=== PATIENT | female | born 1930 | race Caucasian/White ===

== ENCOUNTER → 2016-10-23 | Outpatient (CLI) | payer MEDICARE, OTHER ==
[~2016-10-23] MED LIST: AKWASOL OU; ALDA25TA PO; AMLO25TA PO; ASPI81TA85 PO; PRED1SUS OS; PREDOPD OS; REST0.05 OU; SYNT88TA2 PO; VIGA0.02 OU
--- NOTE | 2016-10-23 16:04 | REP ---
RENAL ULTRASOUND: Real-time sonographic evaluation of the kidneys is performed. The right kidney appears atrophic and echogenic, measuring 8.1 x 2.3 x 2.2 cm. The left kidney is normal in size measuring 12.4 x 5.4 x 5.3 cm. Multiple cysts are seen of the right kidney, largest measuring 2 cm in diameter. There appears to be a 4 cm cyst of the upper pole of the left kidney. There is no hydronephrosis. No definite renal stones are seen. IMPRESSION: Right renal atrophy with echogenic appearance. Multiple bilateral renal cysts. No hydronephrosis.
== END ==
LOC: M WHC 09:03
PROVIDERS: ATTEND Family Medicine
DX: N18.3 Chronic kidney disease, stage 3 (moderate) (principal); Q61.02 Congenital multiple renal cysts

== ENCOUNTER 2016-10-30 10:36 | Inpatient (IN) | payer MEDICARE, OTHER ==
[~2016-10-30] VITALS: Ht 152.4 cm; Wt 73.4 kg
[2016-10-30 12:19] LABS: ABG BASE EXCESS 0.3 (-2.0-2.0); ABG DEVICE NASAL CANN; ABG HCO3 23.6 MEQ/L (22.0-26.0); ABG PARTIAL PRESSURE CO2 34.4 mmHg (35.0-45.0); ABG PARTIAL PRESSURE O2 72.7 mmHg (75.0-100.0); ABG STANDARD HCO3 24.7 MEQ/L (22.0-26.0); ABG TOTAL CO2 24.7 MEQ/L (23.0-31.0); ABG pH (ARTERIAL) 7.455 UNITS (7.350-7.450)
[2016-10-30 12:25] LABS: MEAN CORPUSCULAR HEMOGLOBIN 32.7 pg (27.0-33.0); MEAN CORPUSCULAR HGB CONC 33.6 g/dl (32.0-36.5); MEAN CORPUSCULAR VOLUME 97.1 fl (80.0-96.0); RED CELL DISTRIBUTION WIDTH 14.3 % (11.5-14.5); WHITE BLOOD COUNT 11.2 K/mm3 (4.0-10.0)
[2016-10-30 12:56] LABS: CALCIUM LEVEL 10.2 MG/DL (8.8-10.2); CREATININE FOR GFR 1.27 MG/DL (0.55-1.02); GLOMERULAR FILTRATION RATE 42.4 (>32); POTASSIUM SERUM 4.5 MEQ/L (3.5-5.1)
[2016-10-30] MEDS ORDERED: FUROSEMIDE 20 MG/2 ML VIAL (J1940) As Ordered ONE (13:14)
--- NOTE | 2016-10-30 13:39 | REP ---
Clinical: Shortness of breath. Technique: AP and lateral. Comparison: 12/26/2014. Findings: Diffuse chronic changes are appreciated. Cardiomegaly is suggested along with evidence for CHF and pulmonary vascular congestion with bibasilar opacities and moderate pleural effusions. No pneumothorax. Skeletal structures demonstrate degenerative changes, osteopenia and exaggerated kyphosis. Impression: Chronic changes with suspected superimposed cardiomegaly and CHF including bibasilar opacities and pleural effusions. Signed by Alvarado Linares MD 10/30/2016 01:32 P
--- NOTE | 2016-10-30 14:06 | REP ---
Clinical: Pain and swelling . Technique: Dove scale and color Doppler evaluation using linear high frequency transducer. Findings: Ultrasound examination of the right and left lower extremity deep venous structures from the common femoral vein to the popliteal vein demonstrates normal compressibility flow and wave patterns in response to respiration and augmentation. There is no evidence for deep venous thrombosis. Impression: No evidence for deep venous thrombosis. Signed by Alvarado Linares MD 10/30/2016 01:58 P
[2016-10-30] MEDS ORDERED: LABETALOL 100 MG TAB As Ordered ONE (14:43)
[2016-10-30] MEDS ORDERED: LABE10TAB PO (14:43)
[2016-10-30] MEDS ORDERED: PERF20NE2 INH (14:45)
[2016-10-30] MEDS ORDERED: IRBE75TA5 PO (14:45)
[2016-10-30] MEDS ORDERED: NORT25CA2 PO (14:45)
[2016-10-30] MEDS ORDERED: FISH1000 PO (14:45)
[2016-10-30] MEDS ORDERED: VITMTA PO (14:45)
[2016-10-30] MEDS ORDERED: DIGOXIN INJ 0.5 MG/2 ML AMP (J1160) IV ONE (15:00)
[2016-10-30] MEDS ORDERED: DIGOXIN INJ 0.5 MG/2 ML AMP (J1160) As Ordered ONE (15:36)
--- NOTE | 2016-10-30 17:44 | EDDOCDS ---
Physician Documentation [facility] Name: Allyn Linda Age: 86 yrs Sex: Female : 1930 Arrival Date: 10/30/2016 Time: 10:36 Bed 7 Private MD: Ten Cisse Disposition: 10/30/16 15:17 Hospitalization ordered by Lulú Patel for Inpatient Admission. Preliminary diagnosis is Acute combined systolic (congestive) and diastolic (congestive) heart failure. - Bed requested for PCU. - Status is Inpatient Admission. ck1 - Condition is Stable. - Problem is new. - Symptoms are unchanged. Historical: - Allergies: PENICILLINS; Motrin; - Home Meds: 1. aspirin 81 mg Oral tab 1 tab once daily 2. spironolacton-hydrochlorothiaz 25-25 mg Oral tab 1 tab 2 times per day 3. levothyroxine 88 mcg Oral cap 1 cap once daily 4. Restasis 0.05 % ophthalmic dpet 1 drop 2 times per day 5. Labetalol 50 mg Oral 0.5 tab daily 6. nortriptyline 25 mg Oral cap twice a day 7. Avapro 75 mg Oral tab once daily 8. performist twice a day 9. Fish Oil 1,000 mg Oral cap daily 10. Centrum Silver oral tab daily - PMHx: Hypertension; Hyperthyroidism; ME; TIA; neuropathy; pulmonary fibrosis; - PSHx: Corneal Transplant; Hernia repair; Knee Replacement; Fem Pop; - Social history: Smoking status: Patient states was never smoker of tobacco. No barriers to communication noted, The patient speaks fluent [place], Speaks appropriately for age. - Family history: Not pertinent. - : The pt / caregiver states he / she is not on anticoagulants. Home medication list is obtained from the patient, family members. - Exposure Risk Screening:: None identified. Vital Signs: 10/30 10:48 BP 115 / 87; Pulse 136; Resp 24; Temp 96.6(O); Pulse Ox 96% on R/A; Weight 74.84 kg / ck1 164.99 lbs (R); Height 5 ft. 0 in. (152.40 cm) (R); Pain 0/10; 11:13 BP 117 / 80 (auto/); ck1 11:13 Pulse 122 MON; Pulse Ox 97% ; ck1 11:31 BP 114 / 77 (auto/); ck1 11:31 Pulse 124 MON; Pulse Ox 96% ; ck1 11:43 BP 115 / 85 (auto/); ck1 11:43 Pulse 126 MON; Pulse Ox 97% ; ck1 11:58 BP 111 / 79 (auto/); ck1 11:58 Pulse 120 MON; Pulse Ox 97% ; ck1 12:13 BP 112 / 90 (auto/); ck1 12:13 Pulse 122 MON; Pulse Ox 95% ; ck1 12:28 BP 140 / 91 (auto/); ck1 12:28 Pulse 126 MON; Pulse Ox 97% ; ck1 13:02 BP 113 / 81 (auto/); ck1 13:06 Pulse 122 MON; Pulse Ox 92% ; ck1 14:30 BP 116 / 78 (auto/); ck1 14:30 Pulse 120 MON; Pulse Ox 98% ; ck1 14:47 BP 126 / 75 (auto/); ck1 14:47 Pulse 120 MON; Pulse Ox 98% ; ck1 14:59 Pulse 126 MON; Pulse Ox 97% ; ck1 15:00 BP 128 / 83 (auto/); ck1 15:15 BP 117 / 65 (auto/); ck1 15:18 Pulse 126 MON; Pulse Ox 98% ; ck1 16:09 Pulse 108 MON; Pulse Ox 97% ; ck1 16:09 BP 99 / 70 (auto/); ck1 16:10 Pulse 110 MON; Pulse Ox 96% ; ck1 16:15 Resp 20; Temp 95.9(T); ck1 16:53 BP 114 / 79 RA Sitting (auto/reg); jrd 17:03 Pulse 106 MON; Pulse Ox 97% ; ck1 17:04 BP 111 / 83 (auto/); ck1 17:05 BP 111 / 83; Pulse 107; Resp 20; Pulse Ox 98% ; jlf 17:40 BP 117 / 70 LA Sitting (auto/reg); Pulse 98; Resp 18; Temp 98.6; Pulse Ox 100% on R/A; jrd Pain 0/10; 10:48 Body Mass Index 32.22 (74.84 kg, 152.40 cm) ck1 MDM: 11:55 Call Respiratory ordered. jo4 11:55 Hotel Operations Manager ordered. jo4 11:56 BNP Ordered. EDMS 11:56 -Arterial Blood Gas Ordered. EDMS 11:56 Cardiac Marker Panel Ordered. EDMS 11:56 Chest, 2 View (pa\E\lat) Ordered. EDMS 11:56 ECG WITH READING ER PHYS+CARDIAG ordered. EDMS 11:57 Call Respiratory complete. ck1 12:01 D-Dimer Quant Ordered. EDMS 12:01 CBC Ordered. EDMS 12:03 BASIC METABOLIC PROFILE Ordered. EDMS 13:04 BASIC METABOLIC PROFILE Reviewed. jo4 13:05 CBC Reviewed. jo4 13:06 Cardiac Marker Panel Reviewed. jo4 13:07 D-Dimer Quant Reviewed. jo4 13:10 BNP Reviewed. jo4 13:12 Furosemide 20 mg IVP once ordered. jo4 13:14 Duplex, Ext Lower, Bilateral Ordered. EDMS 13:23 [facility] Payment Agreement was scanned into [employer] and attached to record. pm4 13:23 Financial registration complete. pm4 13:56 -Arterial Blood Gas Reviewed. sd1 14:17 Duplex, Ext Lower, Bilateral Reviewed. jo4 14:23 Chest, 2 View (pa\E\lat) Reviewed. jo4 14:31 2 GRAM SODIUM+DIET ordered. EDMS 14:37 Labetalol 25 mg PO once ordered. sd1 15:03 PHYSICAL THERAPY EVAL & TREAT ordered. EDMS 15:03 Admission / Observation Status ordered. EDMS 15:04 CARDIAC MARKER PANEL Ordered. EDMS 15:06 ECHOCARD,DOPPLER/COLOR FLOW ordered. EDMS 15:06 ELECTROCARDIOGRAM ADULT ordered. EDMS 15:07 BASIC METABOLIC PROFILE Ordered. EDMS 15:29 THYROID STIMULATING HORMONE Reviewed. jo4 15:30 Cardiac Marker Panel Reviewed. jo4 15:30 BASIC METABOLIC PROFILE Reviewed. jo4 15:36 Written Provider Order was scanned into [employer] and attached to record. lbd 15:42 Digoxin 0.25 mg IVP once ordered. ck1 Administered Medications: 13:22 Drug: Furosemide 20 mg [furosemide 10 mg/mL injection solution (2 mL)] Route: IVP; ck1 Site: right antecubital; 14:49 Drug: Labetalol 25 mg Route: PO; ck1 15:42 Drug: Digoxin 0.25 mg [digoxin 250 mcg/mL injection solution (1 mL)] Route: IVP; Site: ck1 right antecubital; Signatures: Dispatcher [employer] EDTN Sona Weiss MD MD sd1 Simona Mahmood, Manager Continuous Improvement Unit lbd Lela Connors,RN RN ck1 Itzel Murray DO DO jo4 Jerel Singh, Reg Reg pm4 The chart was reviewed and I authenticate all verbal orders and agree with the evaluation and treatment provided.Corrections: (The following items were deleted from the chart) 12:02 12:01 BASIC METABOLIC PROFILE+LAB ordered. EDMS EDMS 12:03 12:01 BASIC METABOLIC PROFILE+LAB ordered. EDMS EDMS 14:38 14:34 THYROID STIMULATING HORMONE+LAB ordered. EDMS EDMS 16:50 16:30 THYROID STIMULATING HORMONE ordered. EDMS EDMS Attachments: 13:23 [facility] [place] pm4 15:36 Written Provider Order lbd MTDD
--- NOTE | 2016-10-30 17:44 | EDDOCDS ---
Nurse's Notes [facility] Name: Allyn Linda Age: 86 yrs Sex: Female : 1930 Arrival Date: 10/30/2016 Time: 10:36 Bed 7 Private MD: Ten Cisse Diagnosis: Acute combined systolic (congestive) and diastolic (congestive) heart failure Presentation: 10/30 10:38 Presenting complaint: EMS states: "slid" off the edge of bed at 0800, weight on left ck1 knee. Patient denies pain at this time. Hypertensive on scene. Adult Sepsis Screening: The patient does not have new or worsening altered mentation. Patient has a respiratory rate of greater than or equal to 22 (1 point). Systolic blood pressure is greater than 100. Patient has a qSOFA score of 1- Negative Sepsis Screen. Suicide/Homicide risk assessment- the patient denies having any suicidal and/or homicidal ideations and does not present with any other emotional, behavioral or mental health complaints. Status: Patient is not a retail service representative or dependent. Transition of care: patient was not received from another setting of care. 10:38 Method Of Arrival: Ambulance ck1 10:38 Acuity: MENDY Level 3 ck1 Triage Assessment: 10:57 General: Appears in no apparent distress, comfortable, Behavior is appropriate for age, ck1 cooperative. Pain: Denies pain. Neurological: Level of Consciousness is awake, alert, obeys commands, Oriented to person, place, time. Cardiovascular: Rhythm is sinus tachycardia Chest pain is denied. Respiratory: Respiratory effort is unlabored, Respiratory pattern is regular, symmetrical. GI: No deficits noted. Derm: Skin is dusky, on fingertips. Musculoskeletal: Range of motion intact in all extremities. Historical: - Allergies: PENICILLINS; Motrin; - Home Meds: 1. aspirin 81 mg Oral tab 1 tab once daily 2. spironolacton-hydrochlorothiaz 25-25 mg Oral tab 1 tab 2 times per day 3. levothyroxine 88 mcg Oral cap 1 cap once daily 4. Restasis 0.05 % ophthalmic dpet 1 drop 2 times per day 5. Labetalol 50 mg Oral 0.5 tab daily 6. nortriptyline 25 mg Oral cap twice a day 7. Avapro 75 mg Oral tab once daily 8. performist twice a day 9. Fish Oil 1,000 mg Oral cap daily 10. Centrum Silver oral tab daily - PMHx: Hypertension; Hyperthyroidism; MN; TIA; neuropathy; pulmonary fibrosis; - PSHx: Corneal Transplant; Hernia repair; Knee Replacement; Fem Pop; - Social history: Smoking status: Patient states was never smoker of tobacco. No barriers to communication noted, The patient speaks fluent Wallisian, Speaks appropriately for age. - Family history: Not pertinent. - : The pt / caregiver states he / she is not on anticoagulants. Home medication list is obtained from the patient, family members. - Exposure Risk Screening:: None identified. Screenin:59 Screening information is obtained from the patient, family members. Fall risk: At risk ck1 due to age, prior history of falls, The following interventions are performed due to a positive Fall Risk Screen: Fall Risk is added to Special Handling on the patient Summary Screen. A Fall Risk Bracelet was applied to the patient. Side Rails are placed in the up position. A Call Vazquez is given with instruction to call for help when getting out of bed. Fall Alert bracelet is placed on the patient. Assistance ADL's: Requires assistance with meal preparation, this assistance is provided by family members, ambulation, assistance is provided by family members, housework, assistance is provided by family members. Abuse/DV Screen: The patient / caregiver reports he/she is: not in a situation that causes fear, pain or injury. Nutritional screening: No deficits noted. Advance Directives: There is an active DNR order and the pt has a copy here at this time. home support is adequate. Assessment: 11:00 General: see triage note. ck1 12:00 General: Appears in no apparent distress, comfortable, Behavior is appropriate for age, ck1 cooperative, pleasant. Pain: Denies pain. Neurological: Level of Consciousness is awake, alert, obeys commands, Oriented to person, place, time. Cardiovascular: Rhythm is sinus tachycardia. Respiratory: Respiratory effort is unlabored, Respiratory pattern is regular, symmetrical. GI: No deficits noted. Derm: Skin is dusky, on bilateral hands and feet. Musculoskeletal: Range of motion intact in all extremities. 13:08 Reassessment: Patient appears in no apparent distress at this time. Patient denies pain ck1 at this time. 14:08 Reassessment: Patient appears in no apparent distress at this time. Patient denies pain ck1 at this time. 15:10 General: Appears in no apparent distress, comfortable, Behavior is appropriate for age, ck1 cooperative. Pain: Denies pain. Neurological: Level of Consciousness is awake, alert, obeys commands, Oriented to person, place, time. Cardiovascular: Rhythm is sinus tachycardia. Respiratory: Respiratory effort is even, unlabored, Respiratory pattern is regular, symmetrical. GI: No deficits noted. Musculoskeletal: Range of motion intact in all extremities. 15:43 General: Patient informed of Dr no for day catheter. Patient refusing day ck1 catheter at this time. Patient and family informed on need for strict intake and output. Patient and family verbalized understanding. Dr. Patel aware. 16:15 Adult Sepsis Screening: The patient does not have new or worsening altered mentation. ck1 Patient's respiratory rate is less than 22. Systolic blood pressure is less than or equal to 100 (1 point). Patient has a qSOFA score of 1- Negative Sepsis Screen. 16:50 General: Patient sitting up on stretcher visiting with family members at bedside. No ck1 acute distress noted at this time, call light in reach. Will continue to monitor patient. 17:39 General: Appears in no apparent distress, comfortable, Behavior is appropriate for age, ck1 cooperative. Pain: Denies pain. Neurological: Level of Consciousness is awake, alert, obeys commands, Oriented to person, place, time. Cardiovascular: Rhythm is sinus tachycardia Chest pain is denied. Respiratory: Respiratory effort is even, unlabored, Respiratory pattern is regular, symmetrical. GI: No deficits noted. Derm: Skin is dusky, on bilateral hands and feet. Musculoskeletal: Range of motion intact in all extremities. Vital Signs: 10:48 BP 115 / 87; Pulse 136; Resp 24; Temp 96.6(O); Pulse Ox 96% on R/A; Weight 74.84 kg ck1 (R); Height 5 ft. 0 in. (152.40 cm) (R); Pain 0/10; 11:13 BP 117 / 80 (auto/); ck1 11:13 Pulse 122 MON; Pulse Ox 97% ; ck1 11:31 BP 114 / 77 (auto/); ck1 11:31 Pulse 124 MON; Pulse Ox 96% ; ck1 11:43 BP 115 / 85 (auto/); ck1 11:43 Pulse 126 MON; Pulse Ox 97% ; ck1 11:58 BP 111 / 79 (auto/); ck1 11:58 Pulse 120 MON; Pulse Ox 97% ; ck1 12:13 BP 112 / 90 (auto/); ck1 12:13 Pulse 122 MON; Pulse Ox 95% ; ck1 12:28 BP 140 / 91 (auto/); ck1 12:28 Pulse 126 MON; Pulse Ox 97% ; ck1 13:02 BP 113 / 81 (auto/); ck1 13:06 Pulse 122 MON; Pulse Ox 92% ; ck1 14:30 BP 116 / 78 (auto/); ck1 14:30 Pulse 120 MON; Pulse Ox 98% ; ck1 14:47 BP 126 / 75 (auto/); ck1 14:47 Pulse 120 MON; Pulse Ox 98% ; ck1 14:59 Pulse 126 MON; Pulse Ox 97% ; ck1 15:00 BP 128 / 83 (auto/); ck1 15:15 BP 117 / 65 (auto/); ck1 15:18 Pulse 126 MON; Pulse Ox 98% ; ck1 16:09 Pulse 108 MON; Pulse Ox 97% ; ck1 16:09 BP 99 / 70 (auto/); ck1 16:10 Pulse 110 MON; Pulse Ox 96% ; ck1 16:15 Resp 20; Temp 95.9(T); ck1 16:53 BP 114 / 79 RA Sitting (auto/reg); jrd 17:03 Pulse 106 MON; Pulse Ox 97% ; ck1 17:04 BP 111 / 83 (auto/); ck1 17:05 BP 111 / 83; Pulse 107; Resp 20; Pulse Ox 98% ; jlf 17:40 BP 117 / 70 LA Sitting (auto/reg); Pulse 98; Resp 18; Temp 98.6; Pulse Ox 100% on R/A; jrd Pain 0/10; 10:48 Body Mass Index 32.22 (74.84 kg, 152.40 cm) ck1 Vitals: 10:48 Log In Time N/A - ambulance arrival. ck1 ED Course: 10:37 Patient visited by Eusebio Longoria PCA. jrd 10:37 Lela Connors,RN is Primary Nurse. jrd 10:37 Patient moved to Waiting jrd 10:37 Patient moved to 7 jrd 10:38 Ten Cisse is Private Physician. jrd 10:41 Triage Initiated ck1 10:47 Itzel Murray DO is PHCP. jo4 10:47 Sona Weiss MD is Attending Physician. jo4 11:00 The patient / caregiver is instructed regarding the plan of care and ED course. ck1 11:08 Patient visited by Lela Connors RN. ck1 11:33 Patient visited by Conchita Resendiz PCA. jlf 11:43 Patient visited by Itzel Murray DO. jo4 12:08 Patient visited by Lela Connors RN. ck1 12:08 BASIC METABOLIC PROFILE Sent. ck1 12:08 CBC Sent. ck1 12:08 Cardiac Marker Panel Sent. ck1 12:08 BNP Sent. ck1 12:08 Inserted saline lock: 20 gauge in right antecubital area and blood collected. The ck1 patient tolerated the procedure well. 12:12 Patient visited by Conchita Resendiz PCA. jlf 12:12 EKG done. (by ED staff). Reviewed by Sona Weiss MD. jlf 12:18 -Arterial Blood Gas Sent. js11 12:18 D-Dimer Quant Sent. ck1 12:35 Patient moved to Radiology we 13:08 Patient visited by Lela Connors RN. ck1 13:08 Patient moved to 7 ck1 13:22 Patient visited by Lela Connors RN. ck1 13:23 [facility] Payment Agreement was scanned into Link Trigger and attached to record. pm4 13:28 Patient moved to Ultrasound hgl 13:58 Patient moved to 7 hgl 14:04 Patient visited by Conchita Resendiz PCA. jlf 14:14 Chest, 2 View (pa\\E\\lat) Returned. EDMS 14:14 Duplex, Ext Lower, Bilateral Returned. EDMS 14:29 Patient visited by Lela Connors,MARY. ck1 14:49 Patient visited by Lela Connors,MARY. ck1 14:52 Patient visited by Belgica Mckeon PCA. rs6 14:52 Diet: Patient given regular meal. Tolerated well. rs6 15:17 Amanda, Lulú is Hospitalizing Provider. jo4 15:20 Patient visited by Belgica Mckeon, REID. rs6 15:20 Assisted to bathroom. PT ambulated to bathroom with walker with minimal assistance. rs6 15:36 Written Provider Order was scanned into Link Trigger and attached to record. lbd 16:57 No procedures done that require assistance. ck1 17:06 Patient visited by Conchita Resendiz, REID. jlf 17:41 Patient visited by Eusebio Longoria, REID. jrd Administered Medications: 13:22 Drug: Furosemide 20 mg [furosemide 10 mg/mL injection solution (2 mL)] Route: IVP; ck1 Site: right antecubital; 14:49 Drug: Labetalol 25 mg Route: PO; ck1 15:42 Drug: Digoxin 0.25 mg [digoxin 250 mcg/mL injection solution (1 mL)] Route: IVP; Site: ck1 right antecubital; RT: 12:18 ABG's drawn from right radial artery allens test done and positive pressure held for 5 js11 minutes no bleeding noted specimen sent pt. tolerated well. Order Results: Lab Order: BNP; SPEC'M 10/30/16 12:06 Test: BRAIN NATRIURETIC PEPTIDE; Value: 884; Range: <100; Abnormal: Above high normal; Units: PG/ML; Status: F Lab Order: -Arterial Blood Gas; SPEC'M 10/30/16 12:11 Test: ABG pH (ARTERIAL); Value: 7.455; Range: 7.350-7.450; Abnormal: Above high normal; Units: UNITS; Status: F Test: ABG PARTIAL PRESSURE CO2; Value: 34.4; Range: 35.0-45.0; Abnormal: Below low normal; Units: mmHg; Status: F Test: ABG PARTIAL PRESSURE O2; Value: 72.7; Range: 75.0-100.0; Abnormal: Below low normal; Units: mmHg; Status: F Test: ABG TOTAL CO2; Value: 24.7; Range: 23.0-31.0; Units: MEQ/L; Status: F Test: ABG HCO3; Value: 23.6; Range: 22.0-26.0; Units: MEQ/L; Status: F Test: ABG BASE EXCESS; Value: 0.3; Range: -2.0-2.0; Status: F Test: ABG STANDARD HCO3; Value: 24.7; Range: 22.0-26.0; Units: MEQ/L; Status: F Test: ABG O2 SATURATION; Value: 94.6; Range: 95.0-99.0; Abnormal: Below low normal; Units: %; Status: F Test: ABG DEVICE; Value: NASAL GIANA; Status: F Lab Order: Cardiac Marker Panel; SPEC'10/30/16 12:07 Test: CPK CREATINE PHOSPHOKINASE; Value: 237; Range: 26-192; Abnormal: Above high normal; Units: U/L; Status: F Test: CK-MB VALUE MASS; Value: 5.3; Range: 0.0-3.6; Abnormal: Above high normal; Units: NG/ML; Status: F Test: MB/CK RELATIVE INDEX; Value: 2.23; Range: < OR =4; Status: F Test: TROPONIN I; Value: 0.11; Range: < 0.10; Abnormal: Above high normal; Units: NG/ML; Status: F Test Note: ; DIAGNOSIS CRITERIA MMB ng/ml Relative Index (RI) NON-AMI < or = 5 N/A DOVE ZONE > 5 < or = 4 AMI > 5 > 4 Lab Order: D-Dimer Quant; [facility]10/30/[facility] 12:17 Test: D-DIMER QUANT; Value: 1954.1; Range: <500; Abnormal: Above high normal; Units: ng/ml; Status: F Lab Order: CBC; [facility]10/[facility] 12:07 Test: WHITE BLOOD COUNT; Value: 11.2; Range: 4.0-10.0; Abnormal: Above high normal; Units: K/mm3; Status: F Test: RED BLOOD COUNT; Value: 4.01; Range: 4.00-5.40; Units: M/mm3; Status: F Test: HEMOGLOBIN; Value: 13.1; Range: 12.0-16.0; Units: g/dl; Status: F Test: HEMATOCRIT; Value: 39.0; Range: 36.0-47.0; Units: %; Status: F Test: MEAN CORPUSCULAR VOLUME; Value: 97.1; Range: 80.0-96.0; Abnormal: Above high normal; Units: fl; Status: F Test: MEAN CORPUSCULAR HEMOGLOBIN; Value: 32.7; Range: 27.0-33.0; Units: pg; Status: F Test: MEAN CORPUSCULAR HGB CONC; Value: 33.6; Range: 32.0-36.5; Units: g/dl; Status: F Test: RED CELL DISTRIBUTION WIDTH; Value: 14.3; Range: 11.5-14.5; Units: %; Status: F Test: PLATELET COUNT, AUTOMATED; Value: 217; Range: 150-450; Units: k/mm3; Status: F Lab Order: BASIC METABOLIC PROFILE; [facility] 10/30/16 12:07 Test: GLUCOSE, FASTING; Value: 128; Range: 83-110; Abnormal: Above high normal; Units: MG/DL; Status: F Test: BLOOD UREA NITROGEN; Value: 38; Range: 7-18; Abnormal: Above high normal; Units: MG/DL; Status: F Test: CREATININE FOR GFR; Value: 1.27; Range: 0.55-1.02; Abnormal: Above high normal; Units: MG/DL; Status: F Test: GLOMERULAR FILTRATION RATE; Value: 42.4; Range: >32; Status: F Test: SODIUM LEVEL; Value: 139; Range: 136-145; Units: MEQ/L; Status: F Test: POTASSIUM SERUM; Value: 4.5; Range: 3.5-5.1; Units: MEQ/L; Status: F Test: CHLORIDE LEVEL; Value: 102; Range: 98-107; Units: MEQ/L; Status: F Test: CARBON DIOXIDE LEVEL; Value: 27; Range: 21-32; Units: MEQ/L; Status: F Test: ANION GAP; Value: 10; Range: 8-16; Units: MEQ/L; Status: F Test: CALCIUM LEVEL; Value: 10.2; Range: 8.8-10.2; Units: MG/DL; Status: F Test Note: ; Units are mL/min/1.73 m2 Chronic Kidney Disease Staging per NKF: Stage I & II GFR >=60 Normal to Mildly Decreased Stage III GFR 30-59 Moderately Decreased Stage IV GFR 15-29 Severely Decreased Stage V GFR <15 Very Little GFR Left ESRD GFR <15 on ICE GUARD TESTER Lab Order: THYROID STIMULATING HORMONE; SPEC'M 10/30/16 12:07 Test: THYROID STIMULATING HORMONE; Value: 1.410; Range: 0.358-3.740; Units: uIU/ML; Status: F Radiology Order: Chest, 2 View (pa\\E\\lat) Test: Chest, 2 View (pa\\E\\lat) REASON FOR EXAMINATION: Shortness of Breath; Clinical: Shortness of breath.; ; Technique: AP and lateral.; ; Comparison: 12/26/2014.; ; Findings:; Diffuse chronic changes are appreciated. Cardiomegaly is suggested along with; evidence for CHF and pulmonary vascular congestion with bibasilar opacities and; moderate pleural effusions. No pneumothorax. Skeletal structures demonstrate; degenerative changes, osteopenia and exaggerated kyphosis.; ; Impression:; Chronic changes with suspected superimposed cardiomegaly and CHF including; bibasilar opacities and pleural effusions.; ; ; Signed by; Alvarado Linares MD 10/30/2016 01:32 P; Radiology Order: Duplex, Ext Lower, Bilateral Test: Duplex, Ext Lower, Bilateral REASON FOR EXAMINATION: Elevated D-dimer; Clinical: Pain and swelling .; ; Technique: Dove scale and color Doppler evaluation using linear high frequency; transducer.; ; Findings:; Ultrasound examination of the right and left lower extremity deep venous; structures from the common femoral vein to the popliteal vein demonstrates normal; compressibility flow and wave patterns in response to respiration and; augmentation. There is no evidence for deep venous thrombosis.; ; Impression:; No evidence for deep venous thrombosis.; ; ; Signed by; Alvarado Linares MD 10/30/2016 01:58 P; Outcome: 15:17 Decision to Hospitalize by Provider. jo4 16:56 Discharge Assessment: patient administered narcotics - no. The following High Risk ck1 Discharge criteria are identified: None. Admitted to PCU accompanied by nurse, accompanied by tech, family with patient, via stretcher, with oxygen, on monitor, with chart. Condition: stable. Admission hand-off: Report Faxed Fax receipt verified by MARY Waldrop. Property :Personal belongings accompany Pt. 16:57 No special radiology studies were completed. ck1 17:42 Patient left the ED. ck1 Signatures: Dispatcher [employer] EDMS Mahmood, Simona, Machine Cementer Unit lbd Luis Alberto Henri Lela Ramirez RN RN ck1 Jimbo Walter js11 Ly, Arie hgl Conchita Resendiz, STAFFING DIRECTOR STAFFING DIRECTOR jlf Eusebio Longoria, STAFFING DIRECTOR STAFFING DIRECTOR jrd Belgica Mckeon, STAFFING DIRECTOR STAFFING DIRECTOR rs6 Itzel Murray, DO DO jo4 Jerel Singh, Reg Reg pm4 Corrections: (The following items were deleted from the chart) 10:49 10:38 Adult Sepsis Screening: The patient does not have new or worsening altered ck1 mentation. Patient's respiratory rate is less than 22. Systolic blood pressure is greater than 100. Patient has a qSOFA score of 0- Negative Sepsis Screen. ck1 14:38 14:37 THYROID STIMULATING HORMONE+LAB sent. 1 EDMS MTDD
[2016-10-30 17:55] VITALS: BP 143/89
[2016-10-30] MEDS: OMEPRAZOLE 20 MG CAP PO SCH (18:53)
[2016-10-30] MEDS: METOPROLOL TART 25 MG TABLET PO SCH (18:54)
--- NOTE | 2016-10-30 19:09 | HPE ---
DATE OF ADMISSION: 10/30/2016 PRIMARY CARE PROVIDER: Dr. Nohelia Mann STILL OPERATOR BATCH OR CONTINUOUS: Dr. Berry Dickerson HOSPITALIST ATTENDING: Dr. Juan Fajardo CHIEF COMPLAINT: Shortness of breath. 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 The patient was in her usual state of health until 2 days ago when she experienced worsening trouble breathing. Dry weight is 165 pounds, measured 2 weeks ago when she saw Dr. Mann. She has had increasing lower extremity edema. Usually uses three pillows to sleep. Usually walks with her walker and has been limited due to shortness of breath by about 5 feet. She denies any chest pain, pressure, or tightness, lightheadedness or dizziness, no fever or chills. She has a nonproductive cough. As she was trying to get dressed and get up this morning she slid off the bed, did not have a fall or loss of consciousness. The patient has Life Alert and called for help. In the emergency room, she was found to have atrial fibrillation, which is new onset, ventricular rate of 136. She denies any diaphoresis, nausea, vomiting, epigastric pain, diarrhea, bright red blood per rectum, or any abdominal pain. Chest xray showed pulmonary edema superimposed on chronic fibrosis. Hospitalist service was called for admission for atrial fibrillation new onset with rapid ventricular rate. She was given a dose of labetalol with persistent elevated rate of 120, blood pressure improved to 111 systolic. Per the family, they assist her with her meals, fix her some TV dinners. Patient has good neighbors that check up on her multiple times throughout the day despite living alone. Patient is admitted with atrial fibrillation with rapid ventricular rate (RVR) and congestive heart failure (CHF), acute onset, unknown ejection fraction. Hospitalist service was called. PAST MEDICAL HISTORY: 1. Hypertension. 2. Hypothyroidism. 3. CO. 4. TIA. 5. Neuropathy. 6. Pulmonary fibrosis. 7. Anterior cerebral aneurysm. ALLERGIES: PENICILLIN, MOTRIN, ANGIOTENSIN-CONVERTING ENZYME ([facility]) INHIBITORS. HOME MEDICATIONS: - aspirin 81 daily - spironolactone-hydrochlorothiazide 25-25 twice a day - levothyroxine 88 mcg daily - Restasis 0.05% ophthalmic drops twice a day - labetalol 50 mg half a tablet daily - nortriptyline 25 mg twice a day - Avapro 75 mg daily - Perforomist twice a day - fish oil 1000 mg daily - Centrum Silver one tablet daily PAST SURGICAL HISTORY: 1. Corneal transplant. 2. Hernia repair. 3. Knee replacement. 4. Fem-pop. FAMILY HISTORY: Noncontributory due to age. SOCIAL HISTORY: Lives alone. No tobacco, alcohol, or recreational drug use. DO NOT RESUSCITATE. REVIEW OF SYSTEMS: Per history of present illness (HPI), 12-point system otherwise negative. PHYSICAL EXAMINATION: Blood pressure 115/87, pulse 136, irregular, respiratory rate 24, temperature 96.6, 96% on room air, 74.8 kg, 5 feet 0 inches tall. Generally, patient has mild respiratory distress, able to speak 4-5 word sentences. Positive jugular venous distention (JVD). Pupils round and reactive. Extraocular muscles are intact. Diminished breath sounds, rales bilaterally. Heart: S1, S2, irregularly irregular. Displaced point of maximal impulse. Abdomen: Soft, nontender, nondistended. Positive bowel sounds. Extremities: 1+ pitting edema bilaterally. The patient has erythematous right lower extremity, has abrasions on the right big toe and left knee. Postoperative left knee surgical changes. EKG: Atrial fibrillation, ventricular rate of 131. Chest xray: Pulmonary fibrosis, cannot exclude pulmonary edema, preliminary reading. LABORATORY DATA: White count 11, hemoglobin 13, hematocrit 39, platelet count 217, sodium 139, potassium 4.5, chloride 102, bicarbonate 27, BUN 38, creatinine 1.27, glucose 128, total CK 237, MB fraction 5.3, troponin 0.11, BNP 884, TSH 1.4. Baseline creatinine 1.34 previous lab data 08/23/2016. ASSESSMENT AND PLAN: This is an 86-year-old female who lives alone, DO NOT RESUSCITATE/DO NOT INTUBATE, with history of Raynaud's syndrome, pulmonary fibrosis, sees Dr. Reagan, kyphosis with restrictive lung disease, hypertension , hypothyroidism, neuropathy, anterior cerebral aneurysm, hypertensive urgency, presents to emergency room with 2 day history of worsening shortness of breath, found to have atrial fibrillation with rapid ventricular rate (RVR) and congestive heart failure (CHF) new onset, admitted to hospitalist service, attending physician Dr. Juan Fajardo. Patient will be admitted as an inpatient for two midnights for the following issues: 1. Congestive heart failure (CHF), new onset, unknown ejection fraction. Most likely secondary to atrial fibrillation with rapid ventricular rate (RVR). Patient will be admitted to telemetry. Cycle cardiac markers every 6 hours. Fluid restriction 1.8 liters every 24 hours. Strict intake and output, daily weights. Lasix 20 mg intravenous (IV) every 8 hours to net negative 1 liter daily. Echocardiogram. Chest fasting lipid profile in the morning. Patient has allergy to ANGIOTENSIN-CONVERTING ENZYME ([facility]) INHIBITORS, once euvolemic may start on low dose ARB, statin. If patient has worsening creatinine, may start on nitrates. Monitor for worsening symptoms. Keep saturations above 90%. 2. Atrial fibrillation with rapid ventricular rate (RVR). Patient's blood pressure is currently 100. Will continue with Lopressor 25 mg every 6 hours with holding parameter for systolic pressure less than 100 or pulse less than 60. Continue under telemetry. Repeat 12-lead EKG in the morning. Check a thyroid stimulating hormone (TSH) level. If patient has worsening low blood pressure, may consider cardiology consult. As patient has underlying pulmonary fibrosis and due to history of hypothyroidism and pulmonary fibrosis, amiodarone may not be the best choice. At this time will give the patient one dose of digoxin 0.25 IV and recheck a digoxin level in the morning and monitor overnight on telemetry. 3. Chronic renal failure. At baseline creatinine. Avoid nephrotoxins. Renally dose all medications. Repeat metabolic panel and adjust Lasix accordingly. 4. Abnormal cardiac markers, most likely secondary to cardiac mediated ischemia from atrial fibrillation with rapid ventricular rate (RVR) with congestive heart failure. Will cycle cardiac markers. Does not appear to have acute coronary syndrome at this time. EKG is unremarkable aside from atrial fibrillation with rapid ventricular rate. Will recheck a 12-lead EKG in the morning. Continue on telemetry. 5. Hypothyroidism. Continue on levothyroxine. Check thyroid stimulating hormone (TSH). 6. History of transient ischemic attack (TIA) with cerebral aneurysm. We have held off on anticoagulation. Today family is to decide whether the patient should be on a stronger anticoagulant than aspirin due to risk of hemorrhagic stroke in light of patient's history of hypertensive urgencies. 7. Pulmonary fibrosis. Continue on Perforomist. 8. Restrictive lung disease with kyphosis. Outpatient followup. Oxygen if needed. Patient will be assigned to Dr. Juan Fajardo in the morning. HAYDEN
[2016-10-30] MEDS: FORMOTEROL FUMARATE 20 MCG/2 ML INHALATION SOLUTION (PERFOROMIST) INH SCH (19:33)
[2016-10-30 20:00] VITALS: BP 104/58
[2016-10-30] MEDS: IRBESARTAN 75MG TABLET PO SCH (21:00)
[2016-10-30] MEDS ORDERED: APIXABAN 5 MG TAB (ELIQUIS) PO SCH (21:00)
[2016-10-30] MEDS: NORTRIPTYLINE 25 MG CAP PO SCH (21:20)
[2016-10-30 23:04] LABS: CALCIUM LEVEL 9.1 MG/DL (8.8-10.2); CREATININE FOR GFR 1.46 MG/DL (0.55-1.02); GLOMERULAR FILTRATION RATE 36.1 (>32); POTASSIUM SERUM 4.1 MEQ/L (3.5-5.1)
[2016-10-31] VITALS: BP 100/66
[2016-10-31] MEDS ORDERED: FUROSEMIDE 20 MG/2 ML VIAL (J1940) IV SCH
[2016-10-31 04:00] VITALS: BP 132/101
[2016-10-31] MEDS: LEVOTHYROXINE 0.088 MG TAB (88 MCG) PO SCH (04:31)
[2016-10-31] MEDS: METOPROLOL TART 25 MG TABLET PO SCH ×4 (04:31→17:44)
[2016-10-31] MEDS: FUROSEMIDE 100 MG/10 ML VIAL (J1940) IV SCH ×3 (06:00→17:47)
[2016-10-31 06:03] LABS: MEAN CORPUSCULAR HEMOGLOBIN 33.4 pg (27.0-33.0); MEAN CORPUSCULAR VOLUME 98.1 fl (80.0-96.0); RED CELL DISTRIBUTION WIDTH 13.5 % (11.5-14.5); WHITE BLOOD COUNT 8.2 K/mm3 (4.0-10.0)
[2016-10-31 06:18] LABS: CALCIUM LEVEL 8.7 MG/DL (8.8-10.2); CREATININE FOR GFR 1.45 MG/DL (0.55-1.02); GLOMERULAR FILTRATION RATE 36.4 (>32); POTASSIUM SERUM 3.9 MEQ/L (3.5-5.1)
[2016-10-31 06:28] LABS: DIGOXIN LEVEL 0.7 NG/ML (0.5-2.0)
[2016-10-31 07:30] VITALS: BP 108/76
[2016-10-31] MEDS: FORMOTEROL FUMARATE 20 MCG/2 ML INHALATION SOLUTION (PERFOROMIST) INH SCH ×2 (08:03→19:58)
--- NOTE | 2016-10-31 08:46 | IPN ---
DATE: 10/31/2016 Allyn is seen in PCU. She was admitted to the hospitalist service, transferred to our care this morning. She was admitted with atrial fibrillation with rapid ventricular response (RVR). She is a patient of Dr. Nohelia Halls at the [facility] and sees Dr. Dickerson for cardiology care. She has a complicated past medical history including pulmonary fibrosis, coronary artery disease with a history of myocardial infarction, history of transient ischemic attack (TIA), history of anterior cerebral artery aneurysm. She also has Raynaud's phenomenon and peripheral arterial disease. Since her admission, her heart rate is improved. It is still around 100, but it has improved. She got a dose of digoxin yesterday and was placed on some metoprolol. She has a history of chronic kidney disease. She has been having some increasing lower extremity edema as an outpatient. She still has quite a bit of edema today. She had a net positive intake and output yesterday. PHYSICAL EXAMINATION: 132/101, pulse of 100 to 120's, it was 100 when I saw her, 91% oxygen saturation, 96.4 degrees. GENERAL APPEARANCE: Elderly, frail, lying in bed. Alert and conversant. LUNGS: Have fibrotic rales both bases. HEART: Irregular rate and rhythm, rate around 100. 1/6 systolic ejection murmur. ABDOMEN: Soft, nontender, no masses. EXTREMITIES: She has 1-2 plus pitting edema. Some vesicles of the right lower leg. Bilateral lower extremity erythema. Her hands have dusky erythema of the fingertips and they are cool. Some skin changes related to her Raynaud's. LABORATORIES: White count 8.2, hemoglobin 13.1, platelets 202, sodium 138, potassium 3.9, BUN 44, creatinine 1.45. Troponins are flat. TSH was normal. IMPRESSION: 1. Atrial fibrillation with rapid ventricular response. She is currently on metoprolol. She received one dose of digoxin yesterday. We will continue the digoxin. I think she will need this for rate control. Her Raynaud's phenomenon will probably limit the dose of beta-connie that we can give. Her TSH is normal on current dose of Levothroid. I share Dr. Patel's concern about initiating amiodarone therapy with her history of pulmonary fibrosis and hypothyroidism. 2. Congestive heart failure (CHF). No diuresis with her low dose IV Lasix. I will stop this and put her on a more robust dose of Lasix on a sliding scale aiming for a net diuresis of at least 1.2 liters per day. She is on a fluid restriction and salt restriction. Echocardiogram ordered. Cardiology consultation placed. 3. Raynaud's phenomenon. Limits the dose of beta-connie we can use. Typically we would treat this with vasodilating calcium channel connie, but with her history of congestive heart failure (CHF), this is most likely contraindicated, particularly if she proves to have systolic failure. Echocardiogram is pending. 4. Hypertension. Blood pressure is elevated. She is on Avapro, a relatively low dose. Renal function is borderline for increasing the dose on this. 5. History of TIA and intracerebral artery aneurysm. I share Dr. Patel's concern about initiating anticoagulation. She is currently on aspirin. When her daughter, who is a nurse that we know well, comes in I have asked the staff to have her call me so we can discuss this. I have concerns about her being anticoagulated. 6. Chronic kidney disease. Get daily lab work and adjust medicines based on renal function. Increase Lasix dose as 20 mg dose is unlikely to give her significant diuresis with GFR in the 30s. 7. Pulmonary fibrosis. Followed by Dr. Reagan as an outpatient. Oxygenation is acceptable.
[2016-10-31] MEDS: OMEPRAZOLE 20 MG CAP PO SCH (09:27)
[2016-10-31] MEDS: ASPIRIN 81 MG ENTERIC TAB PO SCH (09:28)
[2016-10-31] MEDS: MULTIVITAMINS/MINERALS THERAP 1 TAB PO SCH (09:28)
[2016-10-31] MEDS: NORTRIPTYLINE 25 MG CAP PO SCH ×2 (09:28→20:22)
[2016-10-31] MEDS: DIGOXIN 0.125 MG TAB PO SCH (09:28)
[2016-10-31] MEDS: OMEGA-3 1050MG CAPSULE PO SCH (09:28)
--- NOTE | 2016-10-31 10:49 | ECGEPIP ---
Stationary ECG Study [facility] Test Date: 2016-10-31 Pat Name: CINDY SANCHEZ Department: Room: [place] [address] Gender: F [employer]: KATHRYN : 1930 Requested By: MELVIN Avendaño Order Number: [id number] Reading MD: Nithin Stewart Measurements Intervals [place] Rate: 102 P: ND: 0 QRS: 28 QRSD: 116 T: 185 QT: 339 QTc: 443 Interpretive Statements ATRIAL FLUTTER WITH RAPID VENTRICULAR RESPONSE Rate decreased when compared to 10-30-[address]ICULAR CONDUCTION DELAY ST DEVIATION AND MODERATE T-WAVE ABNORMALITY, CONSIDER ANTEROLATERAL ISCHEMIA Electronically Signed On 10-31-2016 10:48:51 EST by Nithin Stewart
[2016-10-31 12:00] VITALS: BP 127/83
[2016-10-31 16:00] VITALS: BP 126/70
[2016-10-31 20:11] VITALS: BP 130/79
[2016-10-31] MEDS: IRBESARTAN 75MG TABLET PO SCH (20:22)
[2016-11-01 00:22] VITALS: BP 111/77
[2016-11-01] MEDS: METOPROLOL TART 25 MG TABLET PO SCH ×4 (00:24→18:05)
[2016-11-01] MEDS: FUROSEMIDE 100 MG/10 ML VIAL (J1940) IV SCH ×3 (00:25→12:03)
--- NOTE | 2016-11-01 02:07 | CR ---
DATE OF CONSULTATION: 10/31/2016 REFERRING PROVIDER: Dr. Eusebio James PRIMARY CARE PROVIDER: Dr. Nohelia Mann HISTORY OF PRESENT ILLNESS: 86-year-old woman who has been in the office in the past and was seen by Dr. Dickerson, has been doing well, but lately has been having increasing shortness of breath with activity as well as increasing pedal edema. On the day of admission, she slid off of the bed in the morning of 10/30/2016, and emergency medical services (EMS) was called. She has a Life Alert. Upon arrival to the emergency room (ER), she was found to be in atrial fibrillation, which was new for her, and her ventricular rate was about 130-140 beats per minute. Her blood pressure was reported to be 115/87, with a respiration of 24, an a temperature of 96.6 degrees Fahrenheit. Oxygen saturation was 96% on room air. She was admitted for further management an monitoring. She initially was given albuterol. Her workup revealed underlying congestive heart failure. Cardiology consult was called for further evaluation. When I saw Mrs. Allyn Linda this evening, she was supine in bed and reading. She denies any chest pain or palpitations. She thinks she is feeling much better and she has been ambulating around the nursing station earlier today. She could not do that at all prior to coming to the hospital. She denies any associated chest pain, palpitations, dizziness, diaphoresis, syncope, or near syncope. She denies any active bleeding. She has a cough, but no hemoptysis. There is no focal manifestation. As mentioned above, she does have bilateral pedal edema that has increased, but seems to be now better. PAST MEDICAL HISTORY: She has a past medical history positive for coronary artery disease with possible prior non-ST elevation myocardial infarction, transient ischemic attack (TIA), peripheral arterial disease with right femoral popliteal artery bypass, hypertension, pulmonary fibrosis, hypothyroidism, arthritis, Raynaud's, and on prior CT, she was found to have a small anterior cerebral artery aneurysm measuring 1.3 mm. She also has a history of hyperlipidemia, but could not tolerate a statin. She denies diabetes mellitus. PAST SURGICAL HISTORY: Positive for right femoral artery bypass, hernia repair, knee replacement, corneal transplant. MEDICATIONS AT HOME: - aspirin 81 mg by mouth daily - spironolactone/hydrochlorothiazide 25/25 one tablet twice a day - levothyroxine 88 mcg by mouth - labetalol 60 mg tablet 1-1/2 tablets by mouth daily - nortriptyline 25 mg by mouth twice a day - Avapro 75 mg by mouth daily - fish oil 1000 mg by mouth daily - Centrum Silver one tablet by mouth daily - Restasis ophthalmic solution one drop twice a day CURRENT MEDICATIONS: - aspirin 81 mg by mouth daily - fish oil 1000 mg one tablet by mouth daily - Theragran multivitamin one tablet by mouth daily - digoxin 0.125 mg by mouth daily - levothyroxine 88 mcg by mouth daily - furosemide 80 mg IV every six hours - irbesartan 77 mcg by mouth at bedtime - Pamelor/nortriptyline 25 mg by mouth twice a day - Perforomist 20 mcg twice a day - metoprolol tartrate 25 mg by mouth every six hours - omeprazole 20 mg by mouth daily FAMILY HISTORY: Noncontributory. SOCIAL HISTORY: Patient lives alone and she has a daughter who is a nurse who lives in the area. She also has a brother who lives in town and works in a bank, and a son living [place] of [place]. She has a Life Vest. She denies any smoking. She is no longer driving. ALLERGIES: PENICILLIN, MOTRIN, and [facility] INHIBITORS. ADVANCED DIRECTIVES: Full code. PHYSICAL EXAMINATION: GENERAL: Patient is alert and oriented, in no acute distress at rest. VITAL SIGNS: When I saw her revealed a blood pressure of 130/79 with a pulse of 91, respirations 18, and temperature is 97.8 degrees Fahrenheit with an oxygen saturation of 95% on room air. So far today she is in a negative fluid balance of 475 mL. HEENT: Atraumatic. NECK: Supple, and I could not appreciate any jugular venous distention (JVD). LUNGS: Revealed bilateral crackles and there are some dry crackles also. HEART: The heart examination revealed irregularly irregular heart sounds without gallops. The point of maximum impulse (PMI) is not displaced. There is no rub. I could not appreciate any murmurs. ABDOMEN: Soft and nontender. Bowel sounds are active. EXTREMITIES: Revealed +2 bilateral pedal edema with some redness noted on the right lower extremity. NEUROLOGICAL: Grossly negative for focal deficit. LABS: CBC done today revealed a WBC of 8.2, hemoglobin 13.1, hematocrit 38.4, and platelets 202,000. On admission, CBC revealed a WBC of 11.2, hemoglobin 13.1, hematocrit 39.0, and platelets 217,000. Serum digoxin earlier today was 0.7. BMP done today revealed a sodium of 138, potassium 3.9, chloride 102, CO2 23, BUN 44, creatinine 1.45, GFR 36.4, fasting glucose 114, calcium 8.7. TSH on admission was 1.4. Serum troponin varied between 0.11 up to 0.15. BMP on admission revealed a sodium of 139, potassium 4.5, chloride 102, CO2 27, BUN 38, creatinine 1.27, GFR 42.4, fasting glucose 128, calcium 10.2. Serum D-dimer was 1954. Chest x-ray done on 10/30/2016, revealed chronic changes, cardiomegaly, and manifestation of heart failure. Doppler of the lower extremities on 10/30/2016, was negative for DVT. EKG done on 10/31/2016, revealed atrial fibrillation at 102 beats per minute, an nonspecific ST/T abnormalities. There is mild IVCD. IMPRESSION: 1. Atrial fibrillation with rapid ventricular rate, newly diagnosed. 2. Congestive heart failure, probably related to above. Left ventricular ejection fraction (LVEF) is unknown at this present time, and echocardiogram is pending. 3. History of non-ST elevation myocardial infarction. Patient had a nuclear stress test done in 2009 at the office that revealed possible small apical defect that was thought to be artifact. LVEF then was reported to be 66%. 4. History of peripheral arterial disease and right femoral popliteal artery bypass. 5. Hypertension. 6. History of hyperlipidemia. 7. Chronic kidney disease. 8. History of pulmonary fibrosis. 9. Hypothyroidism. 10. History of small anterior cerebral artery aneurysm. Mrs. Allyn Linda seems to be stable and her cardiac condition seems to have improved and she feels better. I will continue current management with two atrioventricular (AV) blocking agents in order to better control her ventricular rate. I will stay away from the amiodarone for now, particularly in view of her underlying pulmonary fibrosis. She already has hypothyroidism and being treated. Her furosemide/Lasix was increased earlier today. We will try to keep her in a negative fluid balance. She has an echocardiogram scheduled and pending, and it will be reviewed and then further recommendations will be given. Her blood pressure seems to be under control. I will continue current medications. We need to monitor closely her BUN and creatinine and serum potassium in view of the diuretics and the angiotensin receptor connie (ARB). We will stay away from calcium channel blockers until the results of the echocardiogram. In view of her history of Raynaud's, if her LVEF is normal by echocardiogram, we may consider calcium channel connie with Cardizem, but her pedal edema may get worse. It was a pleasure to participate in the care of Mrs. Allyn Linda for her underlying cardiac condition. I will continue to monitor her along with you, and tomorrow Dr. Dickerson will be seeing her. Please do not hesitate to call if any questions.
[2016-11-01 05:35] VITALS: BP 115/70
[2016-11-01 05:36] LABS: MEAN CORPUSCULAR HEMOGLOBIN 33.6 pg (27.0-33.0); MEAN CORPUSCULAR HGB CONC 34.4 g/dl (32.0-36.5); MEAN CORPUSCULAR VOLUME 97.9 fl (80.0-96.0); RED CELL DISTRIBUTION WIDTH 13.5 % (11.5-14.5); WHITE BLOOD COUNT 8.8 K/mm3 (4.0-10.0)
[2016-11-01] MEDS: LEVOTHYROXINE 0.088 MG TAB (88 MCG) PO SCH (05:38)
[2016-11-01 05:49] LABS: CALCIUM LEVEL 8.3 MG/DL (8.8-10.2); CREATININE FOR GFR 1.58 MG/DL (0.55-1.02); GLOMERULAR FILTRATION RATE 32.9 (>32); POTASSIUM SERUM 3.2 MEQ/L (3.5-5.1)
[2016-11-01 07:30] VITALS: BP 121/74
[2016-11-01] MEDS: FORMOTEROL FUMARATE 20 MCG/2 ML INHALATION SOLUTION (PERFOROMIST) INH SCH ×2 (08:04→19:37)
[2016-11-01] MEDS: MULTIVITAMINS/MINERALS THERAP 1 TAB PO SCH (08:46)
[2016-11-01] MEDS: OMEPRAZOLE 20 MG CAP PO SCH (08:46)
[2016-11-01] MEDS: NORTRIPTYLINE 25 MG CAP PO SCH ×2 (08:46→20:48)
[2016-11-01] MEDS: OMEGA-3 1050MG CAPSULE PO SCH (08:46)
[2016-11-01] MEDS: ASPIRIN 81 MG ENTERIC TAB PO SCH (08:46)
[2016-11-01] MEDS: DIGOXIN 0.125 MG TAB PO SCH (08:46)
--- NOTE | 2016-11-01 09:18 | IPNPDOC ---
Assessment/Plan Date Seen The patient was seen on 11/01/16. Problems Problems: (1) Atrial fibrillation with rapid ventricular response Status: Acute Response to Treatment: Improving Problem Text: 11/01 - Rate improved with Digoxin and Metoprolol. Telemetry shows HR in the 90s. No pauses/bradycardia. Dr. Robins following patient in consultation and may consider further adjustments in rate control agents pending results of Echo and also taking into consideration h/o pulm fibrosis which may be a contraindication to using Amiodarone. She also has Raynaud's so high dose BB may not be ideal. Dr. Robins strongly recommends anticoagulation for stroke prevention. Will discuss this further with patient's daughter and consider getting Neurosurgical opinion regarding 1.3 mm brain aneurysm to decide if this is a contraindication to anticoagulation. cont ASA for now. (2) CHF (congestive heart failure) Status: Acute Response to Treatment: Improving Problem Text: Symptomatically improved with diuresis. continue IV Lasix for now. Creatinine has risen some - Monitor trend (Baseline creatinine approx 1.4 as of 08/2016) (3) Brain aneurysm Status: Chronic Response to Treatment: Stable Problem Text: 1.3 mm right anterior cerebral artery aneurysm per MRI 12/2014 (4) Hx TIA/stroke w/o resid Status: Chronic Response to Treatment: Stable (5) Peripheral vascular disease of extremity with claudication Status: Chronic Response to Treatment: Stable Problem Text: Occluded right fem artery bypass with chronic mild claudication symptoms followed by Dr. Hassan (6) Carotid arterial disease Status: Chronic Response to Treatment: Stable (7) Restrictive lung disease due to kyphoscoliosis Status: Chronic Response to Treatment: Stable (8) Pulmonary fibrosis Status: Chronic Response to Treatment: Stable (9) CKD (chronic kidney disease), stage III Status: Chronic Problem Text: Baseline creatinine = 1.4 as of 08/2016 Plan / VTE VTE Prophylaxis Ordered?: No (Deciding on anticoagulation today - if no anticoagualtion, then would initiate DVT px at least) Plan / Urinary Catheter Reason for insertion/continuin: Critical Pt monitoring Plan Therapy: PT Disposition Lives home alone - Getting PT Subjective Review of Systems CC/HPI The patient is a 86-year-old female admitted with a reason for visit of Atrial Fibrillation W/ Rapid Ventricular Response. Events since last encounter Breathing feels a little better today. Less dyspnea with ambulating to BR. No CP. No other complaints Constitutional: Denies: Chills, Fever Pulmonary: Reports: Dyspnea (Still with orthopnea and MILLS but improved from admission), Denies: Cough Cardiovascular: Denies: Chest Pain, Palpitations Gastrointestinal: Denies: Abdominal Pain, Constipation, Diarrhea, Nausea, Vomiting Objective Physical Examination General Exam: Positive: Alert, No Acute Distress (Sitting up in chair. Bright and alert. Breathign comfortably and speaking full sentences without dyspnea) Chest Exam: Positive: Diminished (Distant BS with bibasilar crackles. no wheezes.), Negative: Rhonchi, Wheezing Heart Exam: Positive: Rate Normal, Negative: Irregular Rhythm, Murmurs Extremity Exam: Positive: Edema (2-3+ edema Right > Left) Skin Exam: Positive: Other skin issue (Nickel sized blister on right rm - intact with clear fluid. Right LE with slight erythema related to venous stasis and PVD (occluded right Fem a. bypass)) Vital Signs/I&O Vital Signs Date Time Temp Pulse Resp B/P Pulse Ox O2 Delivery O2 Flow Rate FiO2 11/01/16 08:46 97 11/01/16 07:30 96.1 20 121/74 93 Room Air I&O- Last 24 Hours up to 6 AM 11/01/16 06:00 Intake Total 950 ml Output Total 2925 ml Balance -1975 ml Laboratory Data Labs 24H Laboratory Tests 2 10/31/16 13:48: Creatine Kinase MB 4.1H, Creatine Kinase MB Relative Index 1.11, Total Creatine Kinase 369H, Troponin I 0.12H 10/31/16 21:56: Troponin I 0.11H 11/01/16 05:14: Troponin I 0.13H, Anion Gap 11, Blood Urea Nitrogen 52H, Creatinine 1.58H, Sodium Level 137, Potassium Level 3.2L, Chloride Level 98, Carbon Dioxide Level 28, Calcium Level 8.3L, Glomerular Filtration Rate 32.9 CBC/BMP Laboratory Tests 11/01/16 05:14 Calcium Level 8.3 L, Red Blood Count 4.05, Mean Corpuscular Volume 97.9 H, Mean Corpuscular Hemoglobin 33.6 H, Mean Corpuscular Hemoglobin Concent 34.4, Red Cell Distribution Width 13.5 MARTY MOSQUEDA PA-C Nov 01, 2016 09:18
--- NOTE | 2016-11-01 09:38 | IPNPDOC ---
[facility] Cardiology Progress Note Date of Service/Time The patient was seen on 11/01/16 at 08:52. Cardiology Progress Note Ms Linda is an 86 y/o female with multiple comorbidities who initially presented with increasing SOB with worsening lower extremity edema and found to be in new onset atrial fibrillation in the emergency department. OBJECTIVE: PHYSICAL EXAMINATION: VITAL SIGNS: Please see below. GENERAL APPEARANCE: Patient is sitting in her chair, eating breakfast, is comfortable and in no distress HEENT: NCAT, nares patent b/l, PERRLA, moist mucus membranes LUNGS: diminished throughout, pt. has marked kyphosis and as such has restrictive findings, no wheezing, rhonchi or rales appreciated however HEART: normal S1 and S2, could not appreciate murmur, rub or gallop ABDOMEN: soft, non-tender, non-distended SKIN: dry, intact, note that digits on both upper extremities are erythematous, nail dystrophy is present with swelling- from patients apparent Raynaud's EXTREMITIES: b/l swelling on lower extremities, right worse than left, +1 pitting, erythematous right lower extremity with blister formation and dry skin NEUROLOGICAL: no focal deficits appreciated PSYCHIATRIC: appears appropriate LABORATORY WORK: Please see below. ASSESSMENT AND PLAN: Ms Linda seemed to be doing well this morning when seen and examined at bedside, she states that she actually really didn't feel too short of breath when she presented to the ED and that it was more at the insistence of her daughter than anything. She states that she will get SOB/ wheezing on ambulation , but this is a chronic condition for her, she denied CP or palpitations and SOB while at rest today. The pt. 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 In light of her advanced age, multiple comorbidities (and that she has had this aneurysm for quite some time without rupture so far); the chance that she would survive a rupture in the first place is very rare. Therefore adding on anticoagulate medication to reduce her risk of stroke with atrial fibrillation would be advised when looking at benefits vs risks. Would suggest beginning her on an anticoagulant drug only, not dual antiplatelet therapy as the combination is associated with increased risk in bleeding. The patient still has swelling in her lower extremities b/l, more right than left and would recommend continuing to diuresis the patient gently, as she does have some element of congestive heart failure. Of note, the echo. study was still not performed on exam today and as such we cannot make recommendations based on this study. Further recommendations regarding medial therapy can be made once this is accomplished. Her fluid retention is likely secondary to her atrial fibrillation, she was net negative 575 mL one day ago and current weight is measured at 72.8 kg. Would continue her digoxin therapy and Lopressor, as her heart rate seems to be stable hovering in the 's. Addendum MD Alexus: Patient has estimated risk of ischemic stroke approximately 11% per year. I believe that risk of anticoagulation is far less then expected benefit (about 70-75% reduction of ischemic CVA). I could be helpful to get input of neurosurgery to get some estimate of risk of rupture of patient's known aneurysm. Vital Signs/I&O VS/I&O Vital Signs Date Time Temp Pulse Resp B/P Pulse Ox O2 Delivery O2 Flow Rate FiO2 11/01/16 08:46 97 11/01/16 07:30 96.1 20 121/74 93 Room Air I&O- Last 24 Hours up to 6 AM 11/01/16 06:00 Intake Total 950 ml Output Total 2925 ml Balance -1975 ml Laboratory Data 24H LABS Laboratory Tests 2 10/31/16 13:48: Creatine Kinase MB 4.1H, Creatine Kinase MB Relative Index 1.11, Total Creatine Kinase 369H, Troponin I 0.12H 10/31/16 21:56: Troponin I 0.11H 11/01/16 05:14: Troponin I 0.13H, Anion Gap 11, Blood Urea Nitrogen 52H, Creatinine 1.58H, Sodium Level 137, Potassium Level 3.2L, Chloride Level 98, Carbon Dioxide Level 28, Calcium Level 8.3L, Glomerular Filtration Rate 32.9 CBC/BMP Laboratory Tests 11/01/16 05:14 Calcium Level 8.3 L, Red Blood Count 4.05, Mean Corpuscular Volume 97.9 H, Mean Corpuscular Hemoglobin 33.6 H, Mean Corpuscular Hemoglobin Concent 34.4, Red Cell Distribution Width 13.5 GME ATTESTATION GME ATTESTATION My preceptor for this patient encounter was physically present in the building during the encounter and was fully available. As needed, all aspects of the patient interview, examination, medical decision making process, and medical care plan development were reviewed and approved by the preceptor. Preceptor is aware and concurs with the plan as stated in the body of this note and will attest to such by his/her cosignature. VIOLETTE PEÑA DO Nov 01, 2016 09:38 Berry Dickerson MD Nov 04, 2016 16:29
[2016-11-01 12:00] VITALS: BP 136/88
[2016-11-01 16:00] VITALS: BP 123/75
[2016-11-01] MEDS ORDERED: POTASSIUM CHLORIDE 10 MEQ SR TABLET PO ONE (16:15)
--- NOTE | 2016-11-01 18:44 | EDDOCDS ---
Nurse's Notes [facility] Name: Allyn Linda Age: 86 yrs Sex: Female : 1930 Arrival Date: 10/30/2016 Time: 10:36 Bed 7 Private MD: Ten Cisse Diagnosis: Acute combined systolic (congestive) and diastolic (congestive) heart failure Presentation: 10/30 10:38 Presenting complaint: EMS states: "slid" off the edge of bed at 0800, weight on left ck1 knee. Patient denies pain at this time. Hypertensive on scene. Adult Sepsis Screening: The patient does not have new or worsening altered mentation. Patient has a respiratory rate of greater than or equal to 22 (1 point). Systolic blood pressure is greater than 100. Patient has a qSOFA score of 1- Negative Sepsis Screen. Suicide/Homicide risk assessment- the patient denies having any suicidal and/or homicidal ideations and does not present with any other emotional, behavioral or mental health complaints. Status: Patient is not a auto specialty services manager or dependent. Transition of care: patient was not received from another setting of care. 10:38 Method Of Arrival: Ambulance ck1 10:38 Acuity: MENDY Level 3 ck1 Triage Assessment: 10:57 General: Appears in no apparent distress, comfortable, Behavior is appropriate for age, ck1 cooperative. Pain: Denies pain. Neurological: Level of Consciousness is awake, alert, obeys commands, Oriented to person, place, time. Cardiovascular: Rhythm is sinus tachycardia Chest pain is denied. Respiratory: Respiratory effort is unlabored, Respiratory pattern is regular, symmetrical. GI: No deficits noted. Derm: Skin is dusky, on fingertips. Musculoskeletal: Range of motion intact in all extremities. Historical: - Allergies: PENICILLINS; Motrin; - Home Meds: 1. aspirin 81 mg Oral tab 1 tab once daily 2. spironolacton-hydrochlorothiaz 25-25 mg Oral tab 1 tab 2 times per day 3. levothyroxine 88 mcg Oral cap 1 cap once daily 4. Restasis 0.05 % ophthalmic dpet 1 drop 2 times per day 5. Labetalol 50 mg Oral 0.5 tab daily 6. nortriptyline 25 mg Oral cap twice a day 7. Avapro 75 mg Oral tab once daily 8. performist twice a day 9. Fish Oil 1,000 mg Oral cap daily 10. Centrum Silver oral tab daily - PMHx: Hypertension; Hyperthyroidism; TN; TIA; neuropathy; pulmonary fibrosis; - PSHx: Corneal Transplant; Hernia repair; Knee Replacement; Fem Pop; - Social history: Smoking status: Patient states was never smoker of tobacco. No barriers to communication noted, The patient speaks fluent Bots[place]an, Speaks appropriately for age. - Family history: Not pertinent. - : The pt / caregiver states he / she is not on anticoagulants. Home medication list is obtained from the patient, family members. - Exposure Risk Screening:: None identified. Screenin:59 Screening information is obtained from the patient, family members. Fall risk: At risk ck1 due to age, prior history of falls, The following interventions are performed due to a positive Fall Risk Screen: Fall Risk is added to Special Handling on the patient Summary Screen. A Fall Risk Bracelet was applied to the patient. Side Rails are placed in the up position. A Call Vazquez is given with instruction to call for help when getting out of bed. Fall Alert bracelet is placed on the patient. Assistance ADL's: Requires assistance with meal preparation, this assistance is provided by family members, ambulation, assistance is provided by family members, housework, assistance is provided by family members. Abuse/DV Screen: The patient / caregiver reports he/she is: not in a situation that causes fear, pain or injury. Nutritional screening: No deficits noted. Advance Directives: There is an active DNR order and the pt has a copy here at this time. home support is adequate. Assessment: 11:00 General: see triage note. ck1 12:00 General: Appears in no apparent distress, comfortable, Behavior is appropriate for age, ck1 cooperative, pleasant. Pain: Denies pain. Neurological: Level of Consciousness is awake, alert, obeys commands, Oriented to person, place, time. Cardiovascular: Rhythm is sinus tachycardia. Respiratory: Respiratory effort is unlabored, Respiratory pattern is regular, symmetrical. GI: No deficits noted. Derm: Skin is dusky, on bilateral hands and feet. Musculoskeletal: Range of motion intact in all extremities. 13:08 Reassessment: Patient appears in no apparent distress at this time. Patient denies pain ck1 at this time. 14:08 Reassessment: Patient appears in no apparent distress at this time. Patient denies pain ck1 at this time. 15:10 General: Appears in no apparent distress, comfortable, Behavior is appropriate for age, ck1 cooperative. Pain: Denies pain. Neurological: Level of Consciousness is awake, alert, obeys commands, Oriented to person, place, time. Cardiovascular: Rhythm is sinus tachycardia. Respiratory: Respiratory effort is even, unlabored, Respiratory pattern is regular, symmetrical. GI: No deficits noted. Musculoskeletal: Range of motion intact in all extremities. 15:43 General: Patient informed of Dr no for day catheter. Patient refusing day ck1 catheter at this time. Patient and family informed on need for strict intake and output. Patient and family verbalized understanding. Dr. Patel aware. 16:15 Adult Sepsis Screening: The patient does not have new or worsening altered mentation. ck1 Patient's respiratory rate is less than 22. Systolic blood pressure is less than or equal to 100 (1 point). Patient has a qSOFA score of 1- Negative Sepsis Screen. 16:50 General: Patient sitting up on stretcher visiting with family members at bedside. No ck1 acute distress noted at this time, call light in reach. Will continue to monitor patient. 17:39 General: Appears in no apparent distress, comfortable, Behavior is appropriate for age, ck1 cooperative. Pain: Denies pain. Neurological: Level of Consciousness is awake, alert, obeys commands, Oriented to person, place, time. Cardiovascular: Rhythm is sinus tachycardia Chest pain is denied. Respiratory: Respiratory effort is even, unlabored, Respiratory pattern is regular, symmetrical. GI: No deficits noted. Derm: Skin is dusky, on bilateral hands and feet. Musculoskeletal: Range of motion intact in all extremities. Vital Signs: 10:48 BP 115 / 87; Pulse 136; Resp 24; Temp 96.6(O); Pulse Ox 96% on R/A; Weight 74.84 kg ck1 (R); Height 5 ft. 0 in. (152.40 cm) (R); Pain 0/10; 11:13 BP 117 / 80 (auto/); ck1 11:13 Pulse 122 MON; Pulse Ox 97% ; ck1 11:31 BP 114 / 77 (auto/); ck1 11:31 Pulse 124 MON; Pulse Ox 96% ; ck1 11:43 BP 115 / 85 (auto/); ck1 11:43 Pulse 126 MON; Pulse Ox 97% ; ck1 11:58 BP 111 / 79 (auto/); ck1 11:58 Pulse 120 MON; Pulse Ox 97% ; ck1 12:13 BP 112 / 90 (auto/); ck1 12:13 Pulse 122 MON; Pulse Ox 95% ; ck1 12:28 BP 140 / 91 (auto/); ck1 12:28 Pulse 126 MON; Pulse Ox 97% ; ck1 13:02 BP 113 / 81 (auto/); ck1 13:06 Pulse 122 MON; Pulse Ox 92% ; ck1 14:30 BP 116 / 78 (auto/); ck1 14:30 Pulse 120 MON; Pulse Ox 98% ; ck1 14:47 BP 126 / 75 (auto/); ck1 14:47 Pulse 120 MON; Pulse Ox 98% ; ck1 14:59 Pulse 126 MON; Pulse Ox 97% ; ck1 15:00 BP 128 / 83 (auto/); ck1 15:15 BP 117 / 65 (auto/); ck1 15:18 Pulse 126 MON; Pulse Ox 98% ; ck1 16:09 Pulse 108 MON; Pulse Ox 97% ; ck1 16:09 BP 99 / 70 (auto/); ck1 16:10 Pulse 110 MON; Pulse Ox 96% ; ck1 16:15 Resp 20; Temp 95.9(T); ck1 16:53 BP 114 / 79 RA Sitting (auto/reg); jrd 17:03 Pulse 106 MON; Pulse Ox 97% ; ck1 17:04 BP 111 / 83 (auto/); ck1 17:05 BP 111 / 83; Pulse 107; Resp 20; Pulse Ox 98% ; jlf 17:40 BP 117 / 70 LA Sitting (auto/reg); Pulse 98; Resp 18; Temp 98.6; Pulse Ox 100% on R/A; jrd Pain 0/10; 10:48 Body Mass Index 32.22 (74.84 kg, 152.40 cm) ck1 Vitals: 10:48 Log In Time N/A - ambulance arrival. ck1 ED Course: 10:37 Patient visited by Eusebio Longoria PCA. jrd 10:37 Lela Connors,RN is Primary Nurse. jrd 10:37 Patient moved to Waiting jrd 10:37 Patient moved to 7 jrd 10:38 Ten Cisse is Private Physician. jrd 10:41 Triage Initiated ck1 10:47 Itzel Murray DO is PHCP. jo4 10:47 Sona Weiss MD is Attending Physician. jo4 11:00 The patient / caregiver is instructed regarding the plan of care and ED course. ck1 11:08 Patient visited by Lela Connors RN. ck1 11:33 Patient visited by Conchita Resendiz PCA. jlf 11:43 Patient visited by Itzel Murray DO. jo4 12:08 Patient visited by Lela Connors RN. ck1 12:08 BASIC METABOLIC PROFILE Sent. ck1 12:08 CBC Sent. ck1 12:08 Cardiac Marker Panel Sent. ck1 12:08 BNP Sent. ck1 12:08 Inserted saline lock: 20 gauge in right antecubital area and blood collected. The ck1 patient tolerated the procedure well. 12:12 Patient visited by Conchita Resendiz PCA. jlf 12:12 EKG done. (by ED staff). Reviewed by Sona Weiss MD. jlf 12:18 -Arterial Blood Gas Sent. js11 12:18 D-Dimer Quant Sent. ck1 12:35 Patient moved to Radiology we 13:08 Patient visited by Lela Connors RN. ck1 13:08 Patient moved to 7 ck1 13:22 Patient visited by Lela Connors RN. ck1 13:23 [facility] Payment Agreement was scanned into [employer] and attached to record. pm4 13:28 Patient moved to Ultrasound hgl 13:58 Patient moved to 7 hgl 14:04 Patient visited by Conchita Resendiz PCA. jlf 14:14 Chest, 2 View (pa\\E\\lat) Returned. EDMS 14:14 Duplex, Ext Lower, Bilateral Returned. EDMS 14:29 Patient visited by Lela Connors,MARY. ck1 14:49 Patient visited by Lela Connors,MARY. ck1 14:52 Patient visited by Belgica Mckeon PCA. rs6 14:52 Diet: Patient given regular meal. Tolerated well. rs6 15:17 Amanda, Lulú is Hospitalizing Provider. jo4 15:20 Patient visited by Belgica Mckeon, REID. rs6 15:20 Assisted to bathroom. PT ambulated to bathroom with walker with minimal assistance. rs6 15:36 Written Provider Order was scanned into [employer] and attached to record. lbd 16:57 No procedures done that require assistance. ck1 17:06 Patient visited by Conchita Resendiz PCA. jlf 17:41 Patient visited by Eusebio Longoria, REID. jrd 10/31 10:09 T-Sheet-- Draft Copy was scanned into [employer] and attached to record. gb 10:09 ECG/EKG was scanned into [employer] and attached to record. gb Administered Medications: 10/30 13:22 Drug: Furosemide 20 mg [furosemide 10 mg/mL injection solution (2 mL)] Route: IVP; ck1 Site: right antecubital; 14:49 Drug: Labetalol 25 mg Route: PO; ck1 15:42 Drug: Digoxin 0.25 mg [digoxin 250 mcg/mL injection solution (1 mL)] Route: IVP; Site: ck1 right antecubital; RT: 12:18 ABG's drawn from right radial artery allens test done and positive pressure held for 5 js11 minutes no bleeding noted specimen sent pt. tolerated well. Order Results: Lab Order: BNP; SPEC'M 10/30/16 12:06 Test: BRAIN NATRIURETIC PEPTIDE; Value: 884; Range: <100; Abnormal: Above high normal; Units: PG/ML; Status: F Lab Order: -Arterial Blood Gas; SPEC'M 10/30/16 12:11 Test: ABG pH (ARTERIAL); Value: 7.455; Range: 7.350-7.450; Abnormal: Above high normal; Units: UNITS; Status: F Test: ABG PARTIAL PRESSURE CO2; Value: 34.4; Range: 35.0-45.0; Abnormal: Below low normal; Units: mmHg; Status: F Test: ABG PARTIAL PRESSURE O2; Value: 72.7; Range: 75.0-100.0; Abnormal: Below low normal; Units: mmHg; Status: F Test: ABG TOTAL CO2; Value: 24.7; Range: 23.0-31.0; Units: MEQ/L; Status: F Test: ABG HCO3; Value: 23.6; Range: 22.0-26.0; Units: MEQ/L; Status: F Test: ABG BASE EXCESS; Value: 0.3; Range: -2.0-2.0; Status: F Test: ABG STANDARD HCO3; Value: 24.7; Range: 22.0-26.0; Units: MEQ/L; Status: F Test: ABG O2 SATURATION; Value: 94.6; Range: 95.0-99.0; Abnormal: Below low normal; Units: %; Status: F Test: ABG DEVICE; Value: NASAL GIANA; Status: F Lab Order: Cardiac Marker Panel; [facility] 12:07 Test: CPK CREATINE PHOSPHOKINASE; Value: 237; Range: 26-192; Abnormal: Above high normal; Units: U/L; Status: F Test: CK-MB VALUE MASS; Value: 5.3; Range: 0.0-3.6; Abnormal: Above high normal; Units: NG/ML; Status: F Test: MB/CK RELATIVE INDEX; Value: 2.23; Range: < OR =4; Status: F Test: TROPONIN I; Value: 0.11; Range: < 0.10; Abnormal: Above high normal; Units: NG/ML; Status: F Test Note: ; DIAGNOSIS CRITERIA MMB ng/ml Relative Index (RI) NON-AMI < or = 5 N/A DOVE ZONE > 5 < or = 4 AMI > 5 > 4 Lab Order: D-Dimer Quant; 10/30/16 12:17 Test: D-DIMER QUANT; Value: 1954.1; Range: <500; Abnormal: Above high normal; Units: ng/ml; Status: F Lab Order: CBC; [facility] 12:07 Test: WHITE BLOOD COUNT; Value: 11.2; Range: 4.0-10.0; Abnormal: Above high normal; Units: K/mm3; Status: F Test: RED BLOOD COUNT; Value: 4.01; Range: 4.00-5.40; Units: M/mm3; Status: F Test: HEMOGLOBIN; Value: 13.1; Range: 12.0-16.0; Units: g/dl; Status: F Test: HEMATOCRIT; Value: 39.0; Range: 36.0-47.0; Units: %; Status: F Test: MEAN CORPUSCULAR VOLUME; Value: 97.1; Range: 80.0-96.0; Abnormal: Above high normal; Units: fl; Status: F Test: MEAN CORPUSCULAR HEMOGLOBIN; Value: 32.7; Range: 27.0-33.0; Units: pg; Status: F Test: MEAN CORPUSCULAR HGB CONC; Value: 33.6; Range: 32.0-36.5; Units: g/dl; Status: F Test: RED CELL DISTRIBUTION WIDTH; Value: 14.3; Range: 11.5-14.5; Units: %; Status: F Test: PLATELET COUNT, AUTOMATED; Value: 217; Range: 150-450; Units: k/mm3; Status: F Lab Order: BASIC METABOLIC PROFILE; [facility] 10/30/16 12:07 Test: GLUCOSE, FASTING; Value: 128; Range: 83-110; Abnormal: Above high normal; Units: MG/DL; Status: F Test: BLOOD UREA NITROGEN; Value: 38; Range: 7-18; Abnormal: Above high normal; Units: MG/DL; Status: F Test: CREATININE FOR GFR; Value: 1.27; Range: 0.55-1.02; Abnormal: Above high normal; Units: MG/DL; Status: F Test: GLOMERULAR FILTRATION RATE; Value: 42.4; Range: >32; Status: F Test: SODIUM LEVEL; Value: 139; Range: 136-145; Units: MEQ/L; Status: F Test: POTASSIUM SERUM; Value: 4.5; Range: 3.5-5.1; Units: MEQ/L; Status: F Test: CHLORIDE LEVEL; Value: 102; Range: 98-107; Units: MEQ/L; Status: F Test: CARBON DIOXIDE LEVEL; Value: 27; Range: 21-32; Units: MEQ/L; Status: F Test: ANION GAP; Value: 10; Range: 8-16; Units: MEQ/L; Status: F Test: CALCIUM LEVEL; Value: 10.2; Range: 8.8-10.2; Units: MG/DL; Status: F Test Note: ; Units are mL/min/1.73 m2 Chronic Kidney Disease Staging per NKF: Stage I & II GFR >=60 Normal to Mildly Decreased Stage III GFR 30-59 Moderately Decreased Stage IV GFR 15-29 Severely Decreased Stage V GFR <15 Very Little GFR Left ESRD GFR <15 on RECREATION PROFESSOR Lab Order: THYROID STIMULATING HORMONE; SPEC'M 10/30/16 12:07 Test: THYROID STIMULATING HORMONE; Value: 1.410; Range: 0.358-3.740; Units: uIU/ML; Status: F Radiology Order: Chest, 2 View (pa\\E\\lat) Test: Chest, 2 View (pa\\E\\lat) REASON FOR EXAMINATION: Shortness of Breath; Clinical: Shortness of breath.; ; Technique: AP and lateral.; ; Comparison: 12/26/2014.; ; Findings:; Diffuse chronic changes are appreciated. Cardiomegaly is suggested along with; evidence for CHF and pulmonary vascular congestion with bibasilar opacities and; moderate pleural effusions. No pneumothorax. Skeletal structures demonstrate; degenerative changes, osteopenia and exaggerated kyphosis.; ; Impression:; Chronic changes with suspected superimposed cardiomegaly and CHF including; bibasilar opacities and pleural effusions.; ; ; Signed by; Alvarado Linares MD 10/30/2016 01:32 P; Radiology Order: Duplex, Ext Lower, Bilateral Test: Duplex, Ext Lower, Bilateral REASON FOR EXAMINATION: Elevated D-dimer; Clinical: Pain and swelling .; ; Technique: Dove scale and color Doppler evaluation using linear high frequency; transducer.; ; Findings:; Ultrasound examination of the right and left lower extremity deep venous; structures from the common femoral vein to the popliteal vein demonstrates normal; compressibility flow and wave patterns in response to respiration and; augmentation. There is no evidence for deep venous thrombosis.; ; Impression:; No evidence for deep venous thrombosis.; ; ; Signed by; Alvarado Linares MD 10/30/2016 01:58 P; Outcome: 15:17 Decision to Hospitalize by Provider. jo4 16:56 Discharge Assessment: patient administered narcotics - no. The following High Risk ck1 Discharge criteria are identified: None. Admitted to PCU accompanied by nurse, accompanied by tech, family with patient, via stretcher, with oxygen, on monitor, with chart. Condition: stable. Admission hand-off: Report Faxed Fax receipt verified by MARY Waldrop. Property :Personal belongings accompany Pt. 16:57 No special radiology studies were completed. ck1 17:42 Patient left the ED. ck1 Signatures: Dispatcher [employer] EDMS Simona Mahmood, Entertainment & Media Correspondent Unit lbd Henri Sahu [facility] Neisha Torres, Reg Reg gb Lela Connors RN RN ck1 Jimbo Walter js11 Ly, Arie hgl Conchita Resendiz, JEWEL LATHE OPERATOR JEWEL LATHE OPERATOR jlf Eusebio Longoria, JEWEL LATHE OPERATOR JEWEL LATHE OPERATOR jrd Belgica Mckeon, JEWEL LATHE OPERATOR JEWEL LATHE OPERATOR rs6 Itzel Murray, DO DO jo4 Jerel Singh, Reg Reg pm4 Corrections: (The following items were deleted from the chart) 10:49 10:38 Adult Sepsis Screening: The patient does not have new or worsening altered ck1 mentation. Patient's respiratory rate is less than 22. Systolic blood pressure is greater than 100. Patient has a qSOFA score of 0- Negative Sepsis Screen. ck1 14:38 14:37 THYROID STIMULATING HORMONE+LAB sent. ck1 EDMS Chart Complete MTDD
--- NOTE | 2016-11-01 18:44 | EDDOCDS ---
Physician Documentation [facility] Name: Allyn Linda Age: 86 yrs Sex: Female : 1930 Arrival Date: 10/30/2016 Time: 10:36 Bed 7 Private MD: Ten Cisse Disposition: 10/30/16 15:17 Hospitalization ordered by Lulú Patel for Inpatient Admission. Preliminary diagnosis is Acute combined systolic (congestive) and diastolic (congestive) heart failure. - Bed requested for PCU. - Status is Inpatient Admission. ck1 - Condition is Stable. - Problem is new. - Symptoms are unchanged. Historical: - Allergies: PENICILLINS; Motrin; - Home Meds: 1. aspirin 81 mg Oral tab 1 tab once daily 2. spironolacton-hydrochlorothiaz 25-25 mg Oral tab 1 tab 2 times per day 3. levothyroxine 88 mcg Oral cap 1 cap once daily 4. Restasis 0.05 % ophthalmic dpet 1 drop 2 times per day 5. Labetalol 50 mg Oral 0.5 tab daily 6. nortriptyline 25 mg Oral cap twice a day 7. Avapro 75 mg Oral tab once daily 8. performist twice a day 9. Fish Oil 1,000 mg Oral cap daily 10. Centrum Silver oral tab daily - PMHx: Hypertension; Hyperthyroidism; [place]; TIA; neuropathy; pulmonary fibrosis; - PSHx: Corneal Transplant; Hernia repair; Knee Replacement; Fem Pop; - Social history: Smoking status: Patient states was never smoker of tobacco. No barriers to communication noted, The patient speaks fluent Irish, Speaks appropriately for age. - Family history: Not pertinent. - : The pt / caregiver states he / she is not on anticoagulants. Home medication list is obtained from the patient, family members. - Exposure Risk Screening:: None identified. Vital Signs: 10/30 10:48 BP 115 / 87; Pulse 136; Resp 24; Temp 96.6(O); Pulse Ox 96% on R/A; Weight 74.84 kg / ck1 164.99 lbs (R); Height 5 ft. 0 in. (152.40 cm) (R); Pain 0/10; 11:13 BP 117 / 80 (auto/); ck1 11:13 Pulse 122 MON; Pulse Ox 97% ; ck1 11:31 BP 114 / 77 (auto/); ck1 11:31 Pulse 124 MON; Pulse Ox 96% ; ck1 11:43 BP 115 / 85 (auto/); ck1 11:43 Pulse 126 MON; Pulse Ox 97% ; ck1 11:58 BP 111 / 79 (auto/); ck1 11:58 Pulse 120 MON; Pulse Ox 97% ; ck1 12:13 BP 112 / 90 (auto/); ck1 12:13 Pulse 122 MON; Pulse Ox 95% ; ck1 12:28 BP 140 / 91 (auto/); ck1 12:28 Pulse 126 MON; Pulse Ox 97% ; ck1 13:02 BP 113 / 81 (auto/); ck1 13:06 Pulse 122 MON; Pulse Ox 92% ; ck1 14:30 BP 116 / 78 (auto/); ck1 14:30 Pulse 120 MON; Pulse Ox 98% ; ck1 14:47 BP 126 / 75 (auto/); ck1 14:47 Pulse 120 MON; Pulse Ox 98% ; ck1 14:59 Pulse 126 MON; Pulse Ox 97% ; ck1 15:00 BP 128 / 83 (auto/); ck1 15:15 BP 117 / 65 (auto/); ck1 15:18 Pulse 126 MON; Pulse Ox 98% ; ck1 16:09 Pulse 108 MON; Pulse Ox 97% ; ck1 16:09 BP 99 / 70 (auto/); ck1 16:10 Pulse 110 MON; Pulse Ox 96% ; ck1 16:15 Resp 20; Temp 95.9(T); ck1 16:53 BP 114 / 79 RA Sitting (auto/reg); jrd 17:03 Pulse 106 MON; Pulse Ox 97% ; ck1 17:04 BP 111 / 83 (auto/); ck1 17:05 BP 111 / 83; Pulse 107; Resp 20; Pulse Ox 98% ; jlf 17:40 BP 117 / 70 LA Sitting (auto/reg); Pulse 98; Resp 18; Temp 98.6; Pulse Ox 100% on R/A; jrd Pain 0/10; 10:48 Body Mass Index 32.22 (74.84 kg, 152.40 cm) ck1 MDM: 11:55 Call Respiratory ordered. jo4 11:55 Die Inspector ordered. jo4 11:56 BNP Ordered. EDMS 11:56 -Arterial Blood Gas Ordered. EDMS 11:56 Cardiac Marker Panel Ordered. EDMS 11:56 Chest, 2 View (pa\E\lat) Ordered. EDMS 11:56 ECG WITH READING ER PHYS+CARDIAG ordered. EDMS 11:57 Call Respiratory complete. ck1 12:01 D-Dimer Quant Ordered. EDMS 12:01 CBC Ordered. EDMS 12:03 BASIC METABOLIC PROFILE Ordered. EDMS 13:04 BASIC METABOLIC PROFILE Reviewed. jo4 13:05 CBC Reviewed. jo4 13:06 Cardiac Marker Panel Reviewed. jo4 13:07 D-Dimer Quant Reviewed. jo4 13:10 BNP Reviewed. jo4 13:12 Furosemide 20 mg IVP once ordered. jo4 13:14 Duplex, Ext Lower, Bilateral Ordered. EDMS 13:23 [facility] Payment Agreement was scanned into [employer] and attached to record. pm4 13:23 Financial registration complete. pm4 13:56 -Arterial Blood Gas Reviewed. sd1 14:17 Duplex, Ext Lower, Bilateral Reviewed. jo4 14:23 Chest, 2 View (pa\E\lat) Reviewed. jo4 14:31 2 GRAM SODIUM+DIET ordered. EDMS 14:37 Labetalol 25 mg PO once ordered. sd1 15:03 PHYSICAL THERAPY EVAL & TREAT ordered. EDMS 15:03 Admission / Observation Status ordered. EDMS 15:04 CARDIAC MARKER PANEL Ordered. EDMS 15:06 ECHOCARD,DOPPLER/COLOR FLOW ordered. EDMS 15:06 ELECTROCARDIOGRAM ADULT ordered. EDMS 15:07 BASIC METABOLIC PROFILE Ordered. EDMS 15:29 THYROID STIMULATING HORMONE Reviewed. jo4 15:30 Cardiac Marker Panel Reviewed. jo4 15:30 BASIC METABOLIC PROFILE Reviewed. jo4 15:36 Written Provider Order was scanned into [employer] and attached to record. lbd 15:42 Digoxin 0.25 mg IVP once ordered. ck1 10/31 10:09 T-Sheet-- Draft Copy was scanned into [employer] and attached to record. gb 10:09 ECG/EKG was scanned into [employer] and attached to record. gb Administered Medications: 10/30 13:22 Drug: Furosemide 20 mg [furosemide 10 mg/mL injection solution (2 mL)] Route: IVP; ck1 Site: right antecubital; 14:49 Drug: Labetalol 25 mg Route: PO; ck1 15:42 Drug: Digoxin 0.25 mg [digoxin 250 mcg/mL injection solution (1 mL)] Route: IVP; Site: ck1 right antecubital; Signatures: Dispatcher [employer] EDSona Burgos MD MD sd1 Simona Mahmood, Solar Energy Installation Manager Unit lbd Neisha Torres, Reg Reg gb Lela Connors RN RN ck1 Itzel Murray, DO jo4 Jerel Singh, Reg Reg pm4 The chart was reviewed and I authenticate all verbal orders and agree with the evaluation and treatment provided.Corrections: (The following items were deleted from the chart) 12:02 12:01 BASIC METABOLIC PROFILE+LAB ordered. EDMS EDMS 12:03 12:01 BASIC METABOLIC PROFILE+LAB ordered. EDMS EDMS 14:38 14:34 THYROID STIMULATING HORMONE+LAB ordered. EDMS EDMS 16:50 16:30 THYROID STIMULATING HORMONE ordered. EDMS EDMS Attachments: 13:23 [facility] Payment Agreement pm4 15:36 Written Provider Order lbd 10/31 10:09 T-Sheet-- Draft Copy gb 10:09 ECG/EKG gb Chart Complete MTDD
--- NOTE | 2016-11-01 18:44 | EDDOCDS ---
Physician Documentation [facility] Name: Allyn Linda Age: 86 yrs Sex: Female : 1930 Arrival Date: 10/30/2016 Time: 10:36 Bed 7 Private MD: Ten Cisse Disposition: 10/30/16 15:17 Hospitalization ordered by Lulú Patel for Inpatient Admission. Preliminary diagnosis is Acute combined systolic (congestive) and diastolic (congestive) heart failure. - Bed requested for PCU. - Status is Inpatient Admission. ck1 - Condition is Stable. - Problem is new. - Symptoms are unchanged. Historical: - Allergies: PENICILLINS; Motrin; - Home Meds: 1. aspirin 81 mg Oral tab 1 tab once daily 2. spironolacton-hydrochlorothiaz 25-25 mg Oral tab 1 tab 2 times per day 3. levothyroxine 88 mcg Oral cap 1 cap once daily 4. Restasis 0.05 % ophthalmic dpet 1 drop 2 times per day 5. Labetalol 50 mg Oral 0.5 tab daily 6. nortriptyline 25 mg Oral cap twice a day 7. Avapro 75 mg Oral tab once daily 8. performist twice a day 9. Fish Oil 1,000 mg Oral cap daily 10. Centrum Silver oral tab daily - PMHx: Hypertension; Hyperthyroidism; [place]; TIA; neuropathy; pulmonary fibrosis; - PSHx: Corneal Transplant; Hernia repair; Knee Replacement; Fem Pop; - Social history: Smoking status: Patient states was never smoker of tobacco. No barriers to communication noted, The patient speaks fluent Taiwanese, Speaks appropriately for age. - Family history: Not pertinent. - : The pt / caregiver states he / she is not on anticoagulants. Home medication list is obtained from the patient, family members. - Exposure Risk Screening:: None identified. Vital Signs: 10/30 10:48 BP 115 / 87; Pulse 136; Resp 24; Temp 96.6(O); Pulse Ox 96% on R/A; Weight 74.84 kg / ck1 164.99 lbs (R); Height 5 ft. 0 in. (152.40 cm) (R); Pain 0/10; 11:13 BP 117 / 80 (auto/); ck1 11:13 Pulse 122 MON; Pulse Ox 97% ; ck1 11:31 BP 114 / 77 (auto/); ck1 11:31 Pulse 124 MON; Pulse Ox 96% ; ck1 11:43 BP 115 / 85 (auto/); ck1 11:43 Pulse 126 MON; Pulse Ox 97% ; ck1 11:58 BP 111 / 79 (auto/); ck1 11:58 Pulse 120 MON; Pulse Ox 97% ; ck1 12:13 BP 112 / 90 (auto/); ck1 12:13 Pulse 122 MON; Pulse Ox 95% ; ck1 12:28 BP 140 / 91 (auto/); ck1 12:28 Pulse 126 MON; Pulse Ox 97% ; ck1 13:02 BP 113 / 81 (auto/); ck1 13:06 Pulse 122 MON; Pulse Ox 92% ; ck1 14:30 BP 116 / 78 (auto/); ck1 14:30 Pulse 120 MON; Pulse Ox 98% ; ck1 14:47 BP 126 / 75 (auto/); ck1 14:47 Pulse 120 MON; Pulse Ox 98% ; ck1 14:59 Pulse 126 MON; Pulse Ox 97% ; ck1 15:00 BP 128 / 83 (auto/); ck1 15:15 BP 117 / 65 (auto/); ck1 15:18 Pulse 126 MON; Pulse Ox 98% ; ck1 16:09 Pulse 108 MON; Pulse Ox 97% ; ck1 16:09 BP 99 / 70 (auto/); ck1 16:10 Pulse 110 MON; Pulse Ox 96% ; ck1 16:15 Resp 20; Temp 95.9(T); ck1 16:53 BP 114 / 79 RA Sitting (auto/reg); jrd 17:03 Pulse 106 MON; Pulse Ox 97% ; ck1 17:04 BP 111 / 83 (auto/); ck1 17:05 BP 111 / 83; Pulse 107; Resp 20; Pulse Ox 98% ; jlf 17:40 BP 117 / 70 LA Sitting (auto/reg); Pulse 98; Resp 18; Temp 98.6; Pulse Ox 100% on R/A; jrd Pain 0/10; 10:48 Body Mass Index 32.22 (74.84 kg, 152.40 cm) ck1 MDM: 11:55 Call Respiratory ordered. jo4 11:55 Sample Steamer ordered. jo4 11:56 BNP Ordered. EDMS 11:56 -Arterial Blood Gas Ordered. EDMS 11:56 Cardiac Marker Panel Ordered. EDMS 11:56 Chest, 2 View (pa\E\lat) Ordered. EDMS 11:56 ECG WITH READING ER PHYS+CARDIAG ordered. EDMS 11:57 Call Respiratory complete. ck1 12:01 D-Dimer Quant Ordered. EDMS 12:01 CBC Ordered. EDMS 12:03 BASIC METABOLIC PROFILE Ordered. EDMS 13:04 BASIC METABOLIC PROFILE Reviewed. jo4 13:05 CBC Reviewed. jo4 13:06 Cardiac Marker Panel Reviewed. jo4 13:07 D-Dimer Quant Reviewed. jo4 13:10 BNP Reviewed. jo4 13:12 Furosemide 20 mg IVP once ordered. jo4 13:14 Duplex, Ext Lower, Bilateral Ordered. EDMS 13:23 [facility] Payment Agreement was scanned into [employer] and attached to record. pm4 13:23 Financial registration complete. pm4 13:56 -Arterial Blood Gas Reviewed. sd1 14:17 Duplex, Ext Lower, Bilateral Reviewed. jo4 14:23 Chest, 2 View (pa\E\lat) Reviewed. jo4 14:31 2 GRAM SODIUM+DIET ordered. EDMS 14:37 Labetalol 25 mg PO once ordered. sd1 15:03 PHYSICAL THERAPY EVAL & TREAT ordered. EDMS 15:03 Admission / Observation Status ordered. EDMS 15:04 CARDIAC MARKER PANEL Ordered. EDMS 15:06 ECHOCARD,DOPPLER/COLOR FLOW ordered. EDMS 15:06 ELECTROCARDIOGRAM ADULT ordered. EDMS 15:07 BASIC METABOLIC PROFILE Ordered. EDMS 15:29 THYROID STIMULATING HORMONE Reviewed. jo4 15:30 Cardiac Marker Panel Reviewed. jo4 15:30 BASIC METABOLIC PROFILE Reviewed. jo4 15:36 Written Provider Order was scanned into [employer] and attached to record. lbd 15:42 Digoxin 0.25 mg IVP once ordered. ck1 10/31 10:09 T-Sheet-- Draft Copy was scanned into [employer] and attached to record. gb 10:09 ECG/EKG was scanned into [employer] and attached to record. gb Administered Medications: 10/30 13:22 Drug: Furosemide 20 mg [furosemide 10 mg/mL injection solution (2 mL)] Route: IVP; ck1 Site: right antecubital; 14:49 Drug: Labetalol 25 mg Route: PO; ck1 15:42 Drug: Digoxin 0.25 mg [digoxin 250 mcg/mL injection solution (1 mL)] Route: IVP; Site: ck1 right antecubital; Signatures: Dispatcher [employer] EDSona Burgos MD MD sd1 Simona Mahmood, Inside Sales Professional Unit lbd Neisha Torres, Reg Reg gb Lela Connors RN RN ck1 Itzel Murray, DO jo4 Jerel Singh, Reg Reg pm4 The chart was reviewed and I authenticate all verbal orders and agree with the evaluation and treatment provided.Corrections: (The following items were deleted from the chart) 12:02 12:01 BASIC METABOLIC PROFILE+LAB ordered. EDMS EDMS 12:03 12:01 BASIC METABOLIC PROFILE+LAB ordered. EDMS EDMS 14:38 14:34 THYROID STIMULATING HORMONE+LAB ordered. EDMS EDMS 16:50 16:30 THYROID STIMULATING HORMONE ordered. EDMS EDMS Attachments: 13:23 [facility] [place] Payment Agreement pm4 15:36 Written Provider Order lbd 10/31 10:09 T-Sheet-- Draft Copy gb 10:09 ECG/EKG gb Chart Complete MTDD
[2016-11-01 20:00] VITALS: BP 125/94
[2016-11-01] MEDS: APIXABAN 2.5 MG TAB (ELIQUIS) PO SCH ×2 (20:06→20:30)
[2016-11-01] MEDS: IRBESARTAN 75MG TABLET PO SCH (20:45)
[2016-11-02 00:34] VITALS: BP 118/80
[2016-11-02] MEDS: METOPROLOL TART 25 MG TABLET PO SCH ×5 (00:37→23:55)
[2016-11-02] MEDS ORDERED: SLF 3 ML SYR IV PRN (01:30)
[2016-11-02 04:43] VITALS: BP 151/89
[2016-11-02 05:30] LABS: MEAN CORPUSCULAR HEMOGLOBIN 32.6 pg (27.0-33.0); MEAN CORPUSCULAR HGB CONC 33.6 g/dl (32.0-36.5); MEAN CORPUSCULAR VOLUME 96.9 fl (80.0-96.0); RED CELL DISTRIBUTION WIDTH 14.3 % (11.5-14.5); WHITE BLOOD COUNT 9.3 K/mm3 (4.0-10.0)
[2016-11-02 05:39] LABS: CALCIUM LEVEL 8.3 MG/DL (8.8-10.2); CREATININE FOR GFR 1.37 MG/DL (0.55-1.02); GLOMERULAR FILTRATION RATE 38.8 (>32); POTASSIUM SERUM 3.7 MEQ/L (3.5-5.1)
[2016-11-02] MEDS: SLF 3 ML SYR IV SCH ×3 (06:00→20:19)
[2016-11-02] MEDS: LEVOTHYROXINE 0.088 MG TAB (88 MCG) PO SCH (06:18)
[2016-11-02] MEDS: FORMOTEROL FUMARATE 20 MCG/2 ML INHALATION SOLUTION (PERFOROMIST) INH SCH ×2 (07:58→20:07)
[2016-11-02 08:00] VITALS: BP 121/88
--- NOTE | 2016-11-02 08:15 | ECGEPIP ---
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
--- NOTE | 2016-11-02 08:40 | ECHO ---
DATE OF PROCEDURE: 11/01/2016 REFERRING PROVIDER: Dr. Patel. REASON FOR ECHOCARDIOGRAM: Atrial fibrillation, congestive heart failure. Patient measures 152 cm and weighs 164 pounds. 2D MEASUREMENTS: IVS: 1.3 cm LV: 3.9 cm LVPW: 1.1 cm LA: 4.0 cm Aorta: 3.2 cm FINDINGS: The study is of fair technical quality. Parasternal and apical views are of reasonable quality. Subcostal views are absent. Left ventricle is normal size. There is global hypokinesis. There is more pronounced hypokinesis in the septum and apex. Overall EF is estimated around 30-35%. Right ventricle does not appear grossly dilated. Both atria are probably severely enlarged. Aortic valve is sclerotic. It is a trileaflet valve and has preserved mobility. There are also degenerative abnormalities of mitral valve with prominent mitral annular calcifications. Tricuspid valve appears normal. Pulmonic valve was not visualized. No pericardial effusion is noted. Inferior vena cava was not seen. Aortic root is normal. Aortic arch and abdominal aorta were not visualized. Doppler interrogation of aortic valve reveals no stenosis and trace insufficiency. There is at least moderate and probably moderately severe mitral insufficiency. There is moderate tricuspid insufficiency. Calculated pulmonary artery pressure is at least in 30s assuming normal central venous pressure corresponding to mild pulmonary hypertension. Evaluation of diastolic function is inconclusive due to presence of atrial fibrillation. CONCLUSIONS: 1. Study is of fair technical quality. 2. Normal LV size with mild LVH, global hypokinesis and more pronounced hypokinesis of the septum and apex and overall EF estimated around 30-35%. 3. Aortic sclerosis but no significant stenosis. 4. At least moderate mitral insufficiency. 5. Moderate tricuspid insufficiency. 6. Unable to estimate central venous pressure. 7. At least mild pulmonary hypertension. COMMENT: Subacute bacterial endocarditis (SBE) prophylaxis not recommended. In principal, both ischemic and nonischemic etiology of the patient's cardiomyopathy need to be considered. CHRISTOPHERD
[2016-11-02] MEDS: MULTIVITAMINS/MINERALS THERAP 1 TAB PO SCH (08:50)
[2016-11-02] MEDS: OMEPRAZOLE 20 MG CAP PO SCH (08:50)
[2016-11-02] MEDS: FUROSEMIDE 100 MG/10 ML VIAL (J1940) IV SCH (08:50)
[2016-11-02] MEDS: OMEGA-3 1050MG CAPSULE PO SCH (08:50)
[2016-11-02] MEDS: APIXABAN 2.5 MG TAB (ELIQUIS) PO SCH ×2 (08:51→20:19)
[2016-11-02] MEDS: DIGOXIN 0.125 MG TAB PO SCH (08:51)
[2016-11-02] MEDS: NORTRIPTYLINE 25 MG CAP PO SCH ×2 (08:51→20:19)
--- NOTE | 2016-11-02 09:42 | IPNPDOC ---
[facility] Cardiology Progress Note Date of Service/Time The patient was seen on 11/02/16 at 09:25. Cardiology Progress Note Ms. Linda is an 86 y/o female with multiple comorbidities who initially presented with increasing SOB with worsening lower extremity edema and found to be in new onset atrial fibrillation in the emergency department. OBJECTIVE: PHYSICAL EXAMINATION: VITAL SIGNS: Please see below. GENERAL APPEARANCE: sitting comfortably in bed, appears in no acute distress, pleasant HEENT: NCAT, PERRLA, nares patent b/l, tongue midline, moist mucus membranes LUNGS: diffuse wheeze appreciated, otherwise no rhonchi or rales appreciated HEART: normal s1 and s2, no murmur, gallop, rubs appreciated. ABDOMEN: NABSx4, soft, non-distended, no organomegaly, non-tender SKIN:dry but intact EXTREMITIES: still some swelling/edema in b/l LE +1 NEUROLOGICAL: no focal deficits appreciated PSYCHIATRIC: normal affect, appropriate LABORATORY WORK: Please see below. ASSESSMENT AND PLAN: Ms. Linda has been diuresing well, she was net negative over 1 L yesterday on her Lasix 80 mg QD therapy. The swelling in her lower extremities seems improved as well. Neurosurgery has seen the patient and recommended repeat MRA to evaluate cerebral aneurysm to determine if it has gotten larger before beginning anticoagulation therapy, however there is no absolute neurosurgical contraindication if her brick chimney supervisor feels there is a threatening risk of CVA with her atrial fibrillation. Would suggest continuing with her anticoagulation at this time, and holding the aspirin. The patients most recent ECHO exam showed a reduced EF of 30-35% with 2+ TR, 3+ MR and aortic sclerosis. Given the patients comorbidities in addition now to her low EF on recent ECHO her chances of CVA are heightened. Despite the diuresis, her creatine has improved to 1.37 from 1.58 one day prior, and she is responding well with good output. Her heart rate has been stable in the 88-100 range. She did have a slight increase in her troponin to .13 from .11 one day ago, would continue to monitor this. Blood pressure also seems to be stable. Would not recommend further mediation changes at this time. Vital Signs/I&O VS/I&O Vital Signs Date Time Temp Pulse Resp B/P Pulse Ox O2 Delivery O2 Flow Rate FiO2 11/02/16 08:51 88 11/02/16 08:00 96.7 18 121/88 96 Room Air I&O- Last 24 Hours up to 6 AM 11/02/16 06:00 Intake Total 780 ml Output Total 950 ml Balance -170 ml Laboratory Data 24H LABS Laboratory Tests 2 11/02/16 05:15: Anion Gap 9, Blood Urea Nitrogen 56H, Creatinine 1.37H, Sodium Level 137, Potassium Level 3.7, Chloride Level 100, Carbon Dioxide Level 28, Calcium Level 8.3L, Glomerular Filtration Rate 38.8 CBC/BMP Laboratory Tests 11/02/16 05:15 Calcium Level 8.3 L, Red Blood Count 4.07, Mean Corpuscular Volume 96.9 H, Mean Corpuscular Hemoglobin 32.6, Mean Corpuscular Hemoglobin Concent 33.6, Red Cell Distribution Width 14.3 GME ATTESTATION GME ATTESTATION My preceptor for this patient encounter was physically present in the building during the encounter and was fully available. As needed, all aspects of the patient interview, examination, medical decision making process, and medical care plan development were reviewed and approved by the preceptor. Preceptor is aware and concurs with the plan as stated in the body of this note and will attest to such by his/her cosignature. VIOLETTE PEÑA DO Nov 02, 2016 09:41
--- NOTE | 2016-11-02 09:59 | ECGEPIP ---
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
--- NOTE | 2016-11-02 11:13 | IPNPDOC ---
Assessment/Plan Date Seen The patient was seen on 11/02/16. Problems Problems: (1) Atrial fibrillation with rapid ventricular response Status: Acute Response to Treatment: Improving Problem Text: 11/01 - Rate improved with Digoxin and Metoprolol. Telemetry shows HR in the 90s. No pauses/bradycardia. Dr. Robins following patient in consultation and may consider further adjustments in rate control agents pending results of Echo and also taking into consideration h/o pulm fibrosis which may be a contraindication to using Amiodarone. She also has Raynaud's so high dose BB may not be ideal. Dr. Dickerson strongly recommends anticoagulation for stroke prevention. Will discuss this further with patient's daughter and consider getting Neurosurgical opinion regarding 1.3 mm brain aneurysm to decide if this is a contraindication to anticoagulation. cont ASA for now. 11/02 - Rate remains controlled with Dig and Metoprolol Start Eliquis after MRA brain if aneurysm not significantly larger. (2) CHF (congestive heart failure) Status: Acute Response to Treatment: Improving Problem Text: Symptomatically improved with diuresis. continue IV Lasix for now. Creatinine has risen some - Monitor trend (Baseline creatinine approx 1.4 as of 08/2016) 11/02 - CLinically improving. Good diuresis - Lasix dose decreased to 80 IV daily. 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 Hassan (6) Carotid arterial disease Status: Chronic Response to Treatment: Stable (7) Restrictive lung disease due to kyphoscoliosis Status: Chronic Response to Treatment: Stable (8) Pulmonary fibrosis Status: Chronic Response to Treatment: Stable (9) CKD (chronic kidney disease), stage III Status: Chronic Problem Text: Baseline creatinine = 1.4 as of 08/2016 Plan / VTE VTE Prophylaxis Ordered?: No (Deciding on anticoagulation today - if no anticoagualtion, then would initiate DVT px at least) Plan / Urinary Catheter Reason for insertion/continuin: Critical Pt monitoring Plan Therapy: PT Disposition Continue to monitor in PCU. Home with services once stable Subjective Review of Systems CC/HPI The patient is a 86-year-old female admitted with a reason for visit of Atrial Fibrillation W/ Rapid Ventricular Response. Events since last encounter Less SOB than on admission Constitutional: Denies: Chills, Fever Pulmonary: Reports: Dyspnea, Denies: Cough Cardiovascular: Denies: Chest Pain, Palpitations Gastrointestinal: Denies: Abdominal Pain, Constipation, Diarrhea, Nausea, Vomiting Objective Physical Examination General Exam: Positive: Alert, No Acute Distress (Sitting up in chair. Bright and alert. Breathing comfortably and speaking full sentences without dyspnea) Chest Exam: Positive: Diminished (Distant BS with bibasilar crackles. no wheezes.), Negative: Rhonchi, Wheezing Heart Exam: Positive: Rate Normal, Negative: Irregular Rhythm, Murmurs Extremity Exam: Positive: Edema (1-2+ edema Right > Left) Skin Exam: Positive: Other skin issue (Nickel sized blister on right rm - intact with clear fluid. Right LE with slight erythema related to venous stasis and PVD (occluded right Fem a. bypass)) Vital Signs/I&O Vital Signs Date Time Temp Pulse Resp B/P Pulse Ox O2 Delivery O2 Flow Rate FiO2 11/02/16 08:51 88 11/02/16 08:00 Room Air 11/02/16 08:00 96.7 18 121/88 96 I&O- Last 24 Hours up to 6 AM 11/02/16 06:00 Intake Total 780 ml Output Total 950 ml Balance -170 ml Laboratory Data Labs 24H Laboratory Tests 2 11/02/16 05:15: Anion Gap 9, Blood Urea Nitrogen 56H, Creatinine 1.37H, Sodium Level 137, Potassium Level 3.7, Chloride Level 100, Carbon Dioxide Level 28, Calcium Level 8.3L, Glomerular Filtration Rate 38.8 CBC/BMP Laboratory Tests 11/02/16 05:15 Calcium Level 8.3 L, Red Blood Count 4.07, Mean Corpuscular Volume 96.9 H, Mean Corpuscular Hemoglobin 32.6, Mean Corpuscular Hemoglobin Concent 33.6, Red Cell Distribution Width 14.3 AMRTY MOSQUEDA PA-C Nov 02, 2016 11:13
[2016-11-02] MEDS ORDERED: ALPRAZolam 0.25 MG TAB PO PRN (11:15)
[2016-11-02 12:00] VITALS: BP 153/84
--- NOTE | 2016-11-02 14:01 | REP ---
MRA BRAIN WITHOUT CONTRAST: HISTORY: Aneurysm. COMPARISON: 12/27/2014. 3D [id number] MR angiography was performed at the level of the [place]. A small aneurysm is present arising at the junction of the A1 and A2 segments of the right anterior cerebral artery. The aneurysm measures 1.3 x 1.3 mm and is unchanged in size compared to the previous study. The aneurysm projects medial from the right anterior cerebral artery. There is no other aneurysm or arteriovenous malformation. Mild atherosclerotic disease involves the cavernous and supraclinoid internal carotid arteries, right middle cerebral artery trifurcation, and P2 segment of the right posterior cerebral artery. Major intracranial vessels are patent. The vertebral arteries are equal in size. IMPRESSION: 1. 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 2. Atherosclerotic disease as described above. Signed by Jeff Campbell MD 11/02/2016 02:23 P
[2016-11-02 16:00] VITALS: BP 149/82
[2016-11-02 20:00] VITALS: BP 122/82
[2016-11-02] MEDS: IRBESARTAN 75MG TABLET PO SCH (20:19)
[2016-11-03] VITALS: BP 139/84
[2016-11-03 04:00] VITALS: BP 130/86
[2016-11-03 05:41] LABS: MEAN CORPUSCULAR HEMOGLOBIN 33.3 pg (27.0-33.0); MEAN CORPUSCULAR HGB CONC 34.1 g/dl (32.0-36.5); MEAN CORPUSCULAR VOLUME 97.5 fl (80.0-96.0); RED CELL DISTRIBUTION WIDTH 13.2 % (11.5-14.5); WHITE BLOOD COUNT 8.3 K/mm3 (4.0-10.0)
[2016-11-03 05:52] LABS: CALCIUM LEVEL 8.5 MG/DL (8.8-10.2); CREATININE FOR GFR 1.13 MG/DL (0.55-1.02); GLOMERULAR FILTRATION RATE 48.5 (>32); POTASSIUM SERUM 3.5 MEQ/L (3.5-5.1)
[2016-11-03] MEDS ORDERED: SODIUM CHLORIDE NASAL 0.65% SPRAY BTL (OCEAN) PRN (06:00)
[2016-11-03] MEDS: SLF 3 ML SYR IV SCH (06:24)
[2016-11-03] MEDS: LEVOTHYROXINE 0.088 MG TAB (88 MCG) PO SCH (06:24)
[2016-11-03] MEDS: METOPROLOL TART 25 MG TABLET PO SCH ×2 (06:25→11:46)
[2016-11-03] MEDS: FORMOTEROL FUMARATE 20 MCG/2 ML INHALATION SOLUTION (PERFOROMIST) INH SCH (07:13)
[2016-11-03 08:00] VITALS: BP 127/56
[2016-11-03] MEDS: OMEPRAZOLE 20 MG CAP PO SCH (08:29)
[2016-11-03] MEDS: OMEGA-3 1050MG CAPSULE PO SCH (08:29)
[2016-11-03] MEDS: MULTIVITAMINS/MINERALS THERAP 1 TAB PO SCH (08:29)
[2016-11-03] MEDS: DIGOXIN 0.125 MG TAB PO SCH (08:29)
[2016-11-03] MEDS: APIXABAN 2.5 MG TAB (ELIQUIS) PO SCH (08:29)
[2016-11-03] MEDS: NORTRIPTYLINE 25 MG CAP PO SCH (08:29)
[2016-11-03] MEDS: FUROSEMIDE 100 MG/10 ML VIAL (J1940) IV SCH (08:29)
[2016-11-03] MEDS ORDERED: FURO40TA2 PO (09:06)
[2016-11-03] MEDS ORDERED: ELIQ5TAB PO (09:06)
[2016-11-03] MEDS ORDERED: METO50TA2 PO (09:06)
--- NOTE | 2016-11-03 09:32 | DSES ---
DATE OF ADMISSION: 10/30/2016 DATE OF DISCHARGE: DATE OF DICTATION: 11/03/2016 PRINCIPAL DIAGNOSIS: Atrial fibrillation, new onset with rapid ventricular response. SECONDARY DIAGNOSES: 1. Systolic congestive heart failure (CHF), ejection fraction of 35%. 2. Moderate to severe mitral regurgitation. 3. 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 4. History of stroke with residual weakness. 5. Peripheral arterial disease, status post occluded right femoral artery bypass with chronic mild claudication. 6. Cerebrovascular disease. 7. 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 8. Chronic kidney disease stage 3, creatinine 1.2 on discharge. CONSULTATIONS: Dr. Dickerson, cardiology. Dr. Maldonado, neurosurgery. HISTORY: Allyn Linda is a patient of Dr. Nohelia Mann, who is admitted with shortness of breath. She was found to be in atrial fibrillation with rapid ventricular response, as well as congestive heart failure (CHF). Details of the history and physical as per admission. HOSPITALIZATION COURSE: The patient was admitted to the progressive care unit (PCU) bed. Her rate was controlled with metoprolol and digoxin. TSH was within normal range on her prescribed dose of levothyroxine. She has a history of pulmonary fibrosis and hypothyroidism. Amiodarone was not prescribed. The dose of the medications were adjusted and her heart rate came under good control on her discharge dose of medication. 2. Congestive heart failure (CHF). She was short of breath on admission. She did not diurese much on the low dose of Lasix that she was given on admission. I increased the dose. She had good diuresis and on the day of discharge she has had a good net diuresis on a daily basis. I am converting her from 80 mg of intravenous furosemide today to 40 mg by mouth daily. Echocardiogram showed an ejection fraction of 30 to 35%. Global hypokinesis, more pronounced hypokinesis in the septum and apex. Mild pulmonary hypertension was also noted. 3. 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 This was previously diagnosed in December 2014. Prior to initiating anticoagulation for atrial fibrillation, repeated the MRA, which confirmed that there had been no change in the tiny aneurysm. The patient was also seen by Dr. Maldonado from neurosurgery. He felt that there was no increase in size and it would be reasonable to initiate anticoagulation. 4. Chronic kidney disease. Her creatinine was elevated on admission. Baseline creatinine is around 1.4. After diuresis, creatinine improved down to 1.1. Her Eliquis dose was increased on discharge to reflect her improved creatinine; only criteria for reduced dose that she currently meets is her age, her weight and renal function are both sufficient for 5 mg twice a day of Eliquis. On the day of discharge, she is resting comfortably, no distress. Blood pressure is 135/53, pulse 87, respiratory rate 18, 92% oxygen saturation on room air. GENERAL APPEARANCE: Resting comfortably, no distress. No jugular venous distention (JVD). LUNGS: Fibrotic rales at both bases. HEART: Regular rate and rhythm. Rate around 80. ABDOMEN: Soft, nontender. No masses. EXTREMITIES: Trace to 1+ peripheral edema. LABORATORY DATA: Today, white count 8.3, hemoglobin 13.5, platelets 239. Sodium 142, potassium 3.5, BUN 47, creatinine 1.1, glucose 101. Imaging studies are summarized above. DISPOSITION: The patient is discharged home in improved and stable condition. She is going to followup with Dr. Nohelia Mann in one week. I called [employer] in [place], [place] and they are going to confirm insurance coverage for the Eliquis prior to her leaving. Assuming she has coverage, she will be discharged on furosemide 40 mg daily, Eliquis 5 mg twice a day, digoxin 0.125 mg daily, levothyroxine 88 mcg daily, Avapro 75 mg at night (dose reduced from outpatient), nortriptyline 25 mg twice a day, Perforomist 20 mcg nebulized twice a day (prescription for nebulizer also sent), metoprolol tartrate dose changed today to 50 mg twice a day. She was prescribed alprazolam and omeprazole in the hospital, which I did not continue upon discharge. She is on a 2-gram sodium diet with 1.8 liters per day fluid restriction. Activity as tolerated. Followup with Dr. Dickerson per his office. Followup with Dr. Mann next week. Repeat BMP should be done at his followup appointment. Dosing of Eliquis is based upon her improved renal function after being diuresed; if her creatinine rises to greater or equal to 1.5, the Eliquis dose will have to be reduced to 2.5 mg twice a day.
[2016-11-03 11:46] VITALS: BP 127/56
== END 2016-11-03 13:25 | disposition home health service (06) | DRG 308 ==
LOC: M ED 10:36 → M ED INP 14:55 → M PCU 17:50
PROVIDERS: ADMIT General Practice; ATTEND Family Medicine
DX: I48.91 Unspecified atrial fibrillation (principal); I50.21 Acute systolic (congestive) heart failure; N18.3 Chronic kidney disease, stage 3 (moderate); I12.9 Hypertensive chronic kidney disease with stage 1 through stage 4 chronic kidney disease, or unspecified chronic kidney disease; I34.0 Nonrheumatic mitral (valve) insufficiency; Z66 Do not resuscitate; I67.1 Cerebral aneurysm, nonruptured; I73.9 Peripheral vascular disease, unspecified; I73.00 Raynaud's syndrome without gangrene; J84.10 Pulmonary fibrosis, unspecified; M41.9 Scoliosis, unspecified; I25.2 Old myocardial infarction; E78.5 Hyperlipidemia, unspecified; E03.9 Hypothyroidism, unspecified; I25.10 Atherosclerotic heart disease of native coronary artery without angina pectoris; G62.9 Polyneuropathy, unspecified; Z79.82 Long term (current) use of aspirin; Z88.0 Allergy status to penicillin; Z88.8 Allergy status to other drugs, medicaments and biological substances; Z79.899 Other long term (current) drug therapy; Z96.659 Presence of unspecified artificial knee joint; Z86.73 Personal history of transient ischemic attack (TIA), and cerebral infarction without residual deficits

== ENCOUNTER → 2016-11-07 | Outpatient (CLI) | payer MEDICARE, OTHER ==
[~2016-11-07] MED LIST changes: +ELIQ5TAB PO; +FISH1000 PO; +FURO40TA2 PO; +IRBE75TA5 PO; +LABE10TAB PO; +METO50TA2 PO; +NORT25CA2 PO; +PERF20NE2 INH; +VITMTA PO
--- NOTE | 2016-11-07 12:50 | REP ---
PA AND LATERAL CHEST: 11/07/2016 INDICATION: Nocturnal cough, acute on chronic, systolic congestive heart failure. COMPARISON: PA and lateral chest 10/30/2016, 07/05/2006. FINDINGS: The cardiac silhouette is moderately enlarged. There is ectasia and tortuosity of the thoracic aorta without change. Previous interstitial pulmonary edema noted on 10/30/2016, portable and lateral AP and lateral chest radiograph is improved. Currently, there is pulmonary vascular congestion. Previous small bilateral pleural effusions are also decreased/improved. There is some moderate thoracic kyphotic deformity with advanced degenerative changes in the thoracic spine. IMPRESSION: There has been interval improvement of interstitial pulmonary edema and pleural effusion when compared with 10/30/2016. Currently, there is moderate cardiomegaly, pulmonary vascular congestion and minimal bilateral pleural effusions. MTDD
== END ==
LOC: M SMT 11:14
PROVIDERS: ATTEND Family Medicine
DX: I51.7 Cardiomegaly (principal); I50.23 Acute on chronic systolic (congestive) heart failure

== ENCOUNTER → 2016-11-16 | Outpatient (CLI) | payer MEDICARE, OTHER ==
[2016-11-16 18:41] LABS: CALCIUM LEVEL 9.5 MG/DL (8.8-10.2); CREATININE FOR GFR 3.12 MG/DL (0.55-1.02); POTASSIUM SERUM 4.4 MEQ/L (3.5-5.1)
[2016-11-16 18:53] LABS: DIGOXIN LEVEL 2.8 NG/ML (0.5-2.0)
== END ==
LOC: M SMT 15:42
PROVIDERS: ATTEND Family Medicine
DX: Z51.81 Encounter for therapeutic drug level monitoring (principal); Z79.899 Other long term (current) drug therapy; N18.3 Chronic kidney disease, stage 3 (moderate); I13.0 Hypertensive heart and chronic kidney disease with heart failure and stage 1 through stage 4 chronic kidney disease, or unspecified chronic kidney disease; I50.20 Unspecified systolic (congestive) heart failure; I48.1 Persistent atrial fibrillation; Z79.01 Long term (current) use of anticoagulants
CPT/HCPCS: 36415; 80048; 80162; G0463

== ENCOUNTER → 2016-11-20 | Outpatient (REF) | payer MEDICARE, OTHER ==
[2016-11-20 20:08] LABS: CALCIUM LEVEL 9.6 MG/DL (8.8-10.2); CREATININE FOR GFR 2.93 MG/DL (0.55-1.02); DIGOXIN LEVEL 1.3 NG/ML (0.5-2.0); GLOMERULAR FILTRATION RATE 16.1 (>32); POTASSIUM SERUM 4.1 MEQ/L (3.5-5.1)
== END ==
LOC: M SFHCADAM 08:50
PROVIDERS: ATTEND Family Medicine
DX: Z51.81 Encounter for therapeutic drug level monitoring (principal); R79.89 Other specified abnormal findings of blood chemistry; Z79.899 Other long term (current) drug therapy

== ENCOUNTER → 2016-11-27 | Outpatient (CLI) | payer MEDICARE, OTHER ==
--- NOTE | 2016-11-27 15:32 | REP ---
Urinary tract sonography: History: Acute renal failure. Comparison urinary tract sonography is from October 23, 2016. This prior study showed multiple bilateral renal cysts. Renal atrophy and increased echogenicity was seen as well. Findings: Scanning at the level of the urinary bladder shows that it is largely empty at the time of scanning but otherwise unremarkable. Incidental note is made of a large shadowing 2.2 cm gallstone in the neck of the gallbladder with some sludge in the gallbladder lumen. The gallbladder is dilated to 11.3 cm in diameter. Renal cortical echogenicity pattern is slightly increased. The right kidney is quite atrophic measuring 6.8 x 3.6 x 2.6 cm today. Left renal dimensions are 12.7 x 4.3 x 4.4 cm. No hydronephrosis is seen on either side. There is a parapelvic cyst in the left kidney measuring 1.4 cm in greatest diameter. A right mid-pole cyst is seen measuring 1.7 cm in diameter. No other renal cyst is visualized today. Impression: 1. Cholelithiasis with dilated sludge filled gallbladder. Large stone in the region of the gallbladder neck. 2. Increased renal cortical echogenicity consistent with chronic medical renal disease. 3. Right renal atrophy. 4. Bilateral simple renal cysts. Signed by Nilesh Zavaleta MD 11/27/2016 04:21 P
== END ==
LOC: M RAD 13:54
PROVIDERS: ATTEND Family Medicine
DX: N19 Unspecified kidney failure (principal); K80.20 Calculus of gallbladder without cholecystitis without obstruction; N28.1 Cyst of kidney, acquired; N26.1 Atrophy of kidney (terminal)

== ENCOUNTER → 2016-12-05 | Outpatient (REF) | payer MEDICARE, OTHER | LOC: M SFHCCLAY 15:19 | PROVIDERS: ATTEND Family Medicine | DX: R31.9 Hematuria, unspecified (principal) ==

== ENCOUNTER → 2016-12-07 | Outpatient (REF) | payer MEDICARE, OTHER | LOC: M SFHCPLAZ 12:39 | PROVIDERS: ATTEND Family Medicine | DX: R31.9 Hematuria, unspecified (principal) ==

== ENCOUNTER → 2017-01-10 | Outpatient (REF) | payer MEDICARE, OTHER ==
[2017-01-10 16:33] LABS: ALBUMIN 3.7 GM/DL (3.2-5.2); CALCIUM LEVEL 9.5 MG/DL (8.8-10.2); CREATININE FOR GFR 1.27 MG/DL (0.55-1.02); GLOMERULAR FILTRATION RATE 42.4 (>32); POTASSIUM SERUM 3.9 MEQ/L (3.5-5.1)
== END ==
LOC: M SFHCPLAZ 13:59
PROVIDERS: ATTEND Family Medicine
DX: R63.4 Abnormal weight loss (principal); N18.3 Chronic kidney disease, stage 3 (moderate)

== ENCOUNTER → 2017-01-21 | Outpatient (CLI) | payer MEDICARE, OTHER ==
--- NOTE | 2017-01-23 10:05 | DEXA ---
AP SPINE L1 - L4 1.078 -0.9 1.0 LT FEMUR TOTAL 0.939 -0.5 1.8 RT FEMUR TOTAL 0.900 -0.9 1.5 TOTAL BODY TOTAL OTHER DUAL FEMUR FRAX* ASSESSMENT Risk factors: History of adult fracture (adult). 10 year probability of fracture Major osteoporotic fracture 18.7 % Hip fracture 5.2 % COMMENTS: Normal bone densitometry of the spine. There is low bone density of the hips. The density of the spine is increased 41.8% since initial exam on 07/15/2000. The spine density is increased 8.7% since the most recent exam on 05/07/2013. The density of the left hip has increased 6.5% since initial exam on 07/15/2000. The density of the left hip has decreased 6.7% since the most recent exam on . The density of the right hip has increased 13.9% since the initial exam on 07/15. The density of the right hip has decreased 8.0% since the most recent exam on . FOLLOW-UP: Recommendation for the next bone density exam: 2 years. HAYDEN
== END ==
LOC: M WHC 14:22
PROVIDERS: ATTEND Family Medicine
DX: M85.80 Other specified disorders of bone density and structure, unspecified site (principal); Z87.310 Personal history of (healed) osteoporosis fracture

== ENCOUNTER 2017-03-19 10:35 | Inpatient (IN) | payer MEDICARE, OTHER ==
[~2017-03-19] VITALS: Ht 162.6 cm; Wt 66.6 kg
[2017-03-19] MEDS ORDERED: FOSA70TA PO (10:50)
[2017-03-19] MEDS ORDERED: FISH1000 PO (10:50)
[2017-03-19] MEDS ORDERED: COLA100C3 PO (10:50)
[2017-03-19] MEDS ORDERED: CENTTAB PO (10:51)
[2017-03-19 11:31] LABS: BASO % 0.1 % (0.0-1.0); EOS % 0.5 % (0.0-3.0); LARGE UNSTAINED CELL # 0.1 K/mm3 (0.0-0.4); LARGE UNSTAINED CELL % 1.4 % (0.0-4.0); LYMPH # 0.7 K/mm3 (1.5-4.5); LYMPH % 8.5 % (24.0-44.0); MEAN CORPUSCULAR HEMOGLOBIN 34.9 pg (27.0-33.0); MEAN CORPUSCULAR HGB CONC 33.5 g/dl (32.0-36.5); MEAN CORPUSCULAR VOLUME 104.2 fl (80.0-96.0); MONO # 0.5 K/mm3 (0.0-0.8); MONO % 5.9 % (0.0-5.0); NEUTROPHILS # 6.5 K/mm3 (1.8-7.7); NEUTROPHILS % 83.6 % (36.0-66.0); PLATELET COUNT, AUTOMATED 228 k/mm3 (150-450); RED CELL DISTRIBUTION WIDTH 13.2 % (11.5-14.5); WHITE BLOOD COUNT 7.8 K/mm3 (4.0-10.0)
[2017-03-19 11:33] LABS: INR 1.81
--- NOTE | 2017-03-19 11:50 | REP ---
PORTABLE CHEST, ONE VIEW: HISTORY: Cough. COMPARISON: 11/07/2016 The lungs are clear. The cardiac silhouette is enlarged. The pulmonary vasculature is prominent. IMPRESSION: Cardiomegaly. Signed by Jeff Campbell MD 03/19/2017 11:54 A
[2017-03-19] MEDS ORDERED: FUROSEMIDE 100 MG/10 ML VIAL (J1940) IV ONE (12:00)
[2017-03-19 12:05] LABS: ALBUMIN 3.7 GM/DL (3.2-5.2); ALBUMIN/GLOBULIN RATIO 0.93 (1.00-1.93); BILIRUBIN,DIRECT 0.4 MG/DL (0.0-0.2); BILIRUBIN,TOTAL 1.4 MG/DL (0.2-1.0); CALCIUM LEVEL 9.4 MG/DL (8.8-10.2); CREATININE FOR GFR 1.24 MG/DL (0.55-1.02); GLOMERULAR FILTRATION RATE 43.6 (>32); POTASSIUM SERUM 3.4 MEQ/L (3.5-5.1); TOTAL PROTEIN 7.7 GM/DL (6.4-8.2)
[2017-03-19] MEDS ORDERED: VITMTA PO (12:11)
--- NOTE | 2017-03-19 12:29 | REP ---
Right lower extremity Duplex Doppler venous ultrasound: Real time compression and duplex Doppler interrogation of the right lower extremity deep venous system is performed. The right common femoral, superficial femoral and popliteal veins are fully compressible with transducer pressure and demonstrate normal spontaneous and phasic flow, without evidence of deep venous thrombosis. Impression: No evidence of deep venous thrombosis of the right lower extremity femoral popliteal venous system. There appears to be a bypass graft in the right thigh. No flow is seen within and it is likely occluded. Signed by Nam Dove MD 03/19/2017 12:21 P
--- NOTE | 2017-03-19 13:40 | HPEPDOC ---
Medical History and Physical Date of Admission 03/19/17 History and Physical ATTENDING: Dr. Greenfield PCP: Johnathan CC: SOB HPI: 86yoF with a past medical history significant for HTN, hypothyroid, CHF, who reports increasing shortness of breath for the past 1 week. She reports orthopnea and PND. She has been getting up from bed at night to sleep in her recliner. Nocturia 1. Increasing lower extremity edema over the past 1 week with the development of blisters right pretibial area. Her daughter reports that she has been confused about her fluid restriction over the past week and possibly drinking extra fluids. Yesterday she reported some fluttering of her heart however today she has not noticed this. She denies any chest pain, heaviness, tightness. She does report a dry, nonproductive cough. Denies any fevers, chills, BLAKELY, CP, palpitations, abdominal pain, N/V/D or changes in bowel or bladder habits. Upon presentation to the hospital the patient was found to have decompensated CHF, thus the hospitalist team was consulted. PMHx: HTN Hypothyroid neuropathy with foot drop. Jacqui/Majak. Uses walker at home. Raynaud's Syndrome Pulmonary fibrosis- Rechlin Kyphosis A Fib CHF. Dr Nava TTE 11/06 EF 30-35%, Mod Severe MR, Mild Pulm HTN. (TTE with Dr Nava 2 weeks ago reported to be unchanged from 11/06 per Dtr.) Hx TIA Rt DAVIAN aneurysm, 1.3 mm. Unchanged MRI 11/06 c/w 2014. 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 PSHX: Left TKA 2006 BCC nose 2006 Rt Femoral bypass 2010 Left hernia repair and umbilical hernia repair Manuel cataract surgery left corneal transplant. SOCHX: Resides in: [facility]. Lives alone. Marital Status: Kids: 5, 1 son . Tobacco use: non smoker ETOH: denies Illicit Drugs: Denies Recent travel: none Advanced directives: MOLST DNR scanned into system. HCP Kristina Maddi [phone]. ROS: As noted in HPI, otherwise 11pt ROS of systems reviewed and unremarkable. PE: GEN: 86 yo F, appears stated age. Well-nourished, well developed. No acute distress. Alert and oriented x 3. Pleasant, interactive. HEENT: Normocephalic, atraumatic. Pupils are equal, round, and reactive to light. Extraocular movements are intact. No nystagmus appreciated. Sclera are nonicteric. Conjunctiva without injection. Nose midline. Nasal turbinates without bogginess. No facial asymmetry. Moist mucous membranes. Dentition fair. Pharynx pink and moist, no cobblestoning. Neck supple, trachea midline. No lymphadenopathy or thyromegaly appreciated. CHEST: irreg +S1, +S2, tachycardic. JVD elevated. LUNGS: Marked kyphosis noted. Decreased breath sounds bilaterally with bilateral rales noted. No wheezes, rhonchi. Breathing appears symmetric and easy. Patient is speaking in full sentences. No accessory muscle use. ABD: Round, soft, non-tender, non-distended. +Bowel sounds throughout. No rebound or guarding. No costovertebral angle tenderness. EXT: 2-3mm Lower extremity edema appreciated to trace mid thighs. SKIN: Discoloration of hands noted related to chronic Raynaud's. No rashes. Large broken fluid-filled blister right lower extremity measuring 9 cm x 10 cm. A smaller fluid-filled blisters noted above. NEURO: Alert and oriented x 3. Cranial nerves III-XII are intact. No focal deficits appreciated. CXR: Cardiomegaly U/S LE No evidence of deep venous thrombosis of the right lower extremity femoral popliteal venous system. There appears to be a bypass graft in the right thigh. No flow is seen within and it is likely occluded. EKG: Afib 112, LVH, ST-T abn. BLOOD CULTURES: x 2 pending. LA 2.4 A&P: 86yoF with a past medical history significant for HTN, hypothyroid, CHF, who reports increasing shortness of breath for the past 1 week. She reports orthopnea and PND. She has been getting up from bed at night to sleep in her recliner. Nocturia 1. Increasing lower extremity edema over the past 1 week with the development of blisters right pretibial area. Her daughter reports that she has been confused about her fluid restriction over the past week and possibly drinking extra fluids. Yesterday she reported some fluttering of her heart however today she has not noticed this. The patient will be admitted to PCU for at least [address] Greenfield's service. 1. Decompensated acute on chronic sCHF. EF 30-35% TTE 11/06. IV Lasix 40 mg Q4 prn for net neg 1-1.5 liters per 24 hrs. CIP/Trop x 3. BC pending, UA pending. Repeat LA at 6 PM. Follow I/Os and daily weights. 2. Hypokalemia. supplement po x 1. Add mag level to labs. Monitor K/Mag levels. Recheck BMP at 6 pm. 3. Chronic atrial fibrillation. Metoprolol 50 mg twice a day with hold parameters. Continue Eliquis. 4. CKD. Baseline appears to be 1.27, Monitor labs. 5. Hypertension. Metoprolol. 6. Hypothyroidism. Cont supplement. 7. Lower extremity neuropathy. Continue nortriptyline 25 mg twice a day. 8. LE Skin blisters. Clear drainage. Wound care. 9. Pulmonary fibrosis. Continue Perforomist BID. 10. Osteoporosis. Fosamax as outpt. DVT prophylaxis. Pt on Eliquis. The patient is a DNR (MOLST scanned) Vital Signs Vital Signs Date Time Temp Pulse Resp B/P (MAP) Pulse Ox O2 Delivery O2 Flow Rate FiO2 03/19/17 11:15 03/19/17 10:36 97.7 69 24 93 Room Air Laboratory Data Labs 24H Laboratory Tests 2 03/19/17 11:12: White Blood Count 7.8, Red Blood Count 4.55, Hemoglobin 15.9, Hematocrit 47.4H, Mean Corpuscular Volume 104.2H, Mean Corpuscular Hemoglobin 34.9H, Mean Corpuscular Hemoglobin Concent 33.5, Red Cell Distribution Width 13.2, Platelet Count 228, Neutrophils (%) (Auto) 83.6H, Lymphocytes (%) (Auto) 8.5L, Monocytes (%) (Auto) 5.9H, Eosinophils (%) (Auto) 0.5, Basophils (%) (Auto) 0.1, Neutrophils # (Auto) 6.5, Lymphocytes # (Auto) 0.7L, Monocytes # (Auto) 0.5, Eosinophils # (Auto) 0.0, Basophils # (Auto) 0.0, Large Unclassified Cells % 1.4 , Large Unclassified Cells # 0.1, Anion Gap 9, Glomerular Filtration Rate 43.6, Lactic Acid Level 2.4*H, Calcium Level 9.4, Aspartate Amino Transf (AST/SGOT) 54H, Alanine Aminotransferase (ALT/SGPT) 62, Alkaline Phosphatase 99, Total Bilirubin 1.4H, Direct Bilirubin 0.4H, Total Creatine Kinase 329H, Creatine Kinase MB 8.8H, Creatine Kinase MB Relative Index 2.67, Troponin I 0.04, B-Type Natriuretic Peptide 1830H, Total Protein 7.7, Albumin 3.7, Albumin/Globulin Ratio 0.93L, Thyroid Stimulating Hormone (TSH) 2.030 03/19/17 11:13: Prothrombin Time 21.1H, Prothromb Time International Ratio 1.81 CBC/BMP Laboratory Tests 03/19/17 11:12 Red Blood Count 4.55, Mean Corpuscular Volume 104.2 H, Mean Corpuscular Hemoglobin 34.9 H, Mean Corpuscular Hemoglobin Concent 33.5, Red Cell Distribution Width 13.2, Neutrophils (%) (Auto) 83.6 H, Lymphocytes (%) (Auto) 8.5 L, Monocytes (%) (Auto) 5.9 H, Eosinophils (%) (Auto) 0.5, Basophils (%) ( Auto) 0.1, Neutrophils # (Auto) 6.5, Lymphocytes # (Auto) 0.7 L, Monocytes # ( Auto) 0.5, Eosinophils # (Auto) 0.0, Basophils # (Auto) 0.0 Microbiology Microbiology 03/19/17 Blood Culture, Received Pending 03/19/17 Blood Culture, Received Pending Home Medications Scheduled Alendronate Sodium (Fosamax) 70 Mg Tab, 70 MG PO 1XWK SATURDAY Apixaban Base (Eliquis) 5 Mg Tab, 5 MG PO BID Docusate Sodium (Colace) 100 Mg Cap, 100 MG PO DAILY Fish Oil (Fish Oil) 1,000 Mg Cap, 1 CAP PO DAILY Formoterol Fumarate Dihydrate (Perforomist) 20 Mcg/2 Ml Neb, 20 MCG INH BID Furosemide (Furosemide) 40 Mg Tab, 40 MG PO DAILY Levothyroxine Sodium (Synthroid) 88 Mcg Tab, 88 MCG PO DAILY Metoprolol Tartrate (Metoprolol Tartrate) 50 Mg Tab, 50 MG PO BID Multivitamins *[facility] STOCKED* (Thera M Plus *[facility] STOCKED*) 1 Tab Tab, 1 TAB PO DAILY Nortriptyline HCl (Nortriptyline HCl) 25 Mg Cap, 25 MG PO BID Allergies Coded Allergies: Penicillins (Verified Allergy, Intermediate, HIVES, 01/06/14) MERCY Inhibitors (Verified Allergy, Unknown, 01/22/13) Diltiazem (Verified Allergy, Unknown, 01/22/13) Penicillins Cross Reactors (Verified Allergy, Unknown, 01/22/13) Ibuprofen (Verified Adverse Reaction, Intermediate, GI UPSET, 01/06/14) India Reinoso March 19, 2017 13:40 ELMER VILLARREAL March 19, 2017 15:33
[2017-03-19] MEDS ORDERED: POTASSIUM CHLORIDE 10 MEQ SR TABLET PO ONE (15:00)
[2017-03-19 15:02] LABS: MAGNESIUM LEVEL 2.3 MG/DL (1.8-2.4)
[2017-03-19 16:00] VITALS: BP 142/96
[2017-03-19] MEDS: FUROSEMIDE 40 MG/4 ML VIAL (J1940) IV SCH ×2 (16:52→20:11)
[2017-03-19 20:00] VITALS: BP 135/94
[2017-03-19] MEDS: FORMOTEROL FUMARATE 20 MCG/2 ML INHALATION SOLUTION (PERFOROMIST) INH SCH (20:01)
[2017-03-19] MEDS: NORTRIPTYLINE 25 MG CAP PO SCH (20:11)
[2017-03-19] MEDS: METOPROLOL TART 50 MG TAB PO SCH (20:11)
[2017-03-19] MEDS: APIXABAN 5 MG TAB (ELIQUIS) PO SCH (20:11)
--- NOTE | 2017-03-19 20:42 | ECGEPIP ---
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
[2017-03-19 22:41] VITALS: BP 130/93
[2017-03-19 23:59] VITALS: BP 127/91
[2017-03-20 00:07] LABS: POTASSIUM SERUM 3.4 MEQ/L (3.5-5.1)
[2017-03-20] MEDS ORDERED: KCL 10MEQ IN 100ML SWI (KRUN) 10 MEQ in APPROPRIATE DILUENT 1 EA IV ONE ×2 (00:15)
[2017-03-20] MEDS ORDERED: POTASSIUM CHLORIDE 10 MEQ SR TABLET PO ONE (00:15)
[2017-03-20] MEDS: FUROSEMIDE 40 MG/4 ML VIAL (J1940) IV SCH ×7 (00:29→23:39)
[2017-03-20 04:00] VITALS: BP 130/88
[2017-03-20 05:51] LABS: MEAN CORPUSCULAR HGB CONC 33.8 g/dl (32.0-36.5); MEAN CORPUSCULAR VOLUME 103.4 fl (80.0-96.0); RED CELL DISTRIBUTION WIDTH 13.3 % (11.5-14.5); WHITE BLOOD COUNT 9.1 K/mm3 (4.0-10.0)
[2017-03-20] MEDS: LEVOTHYROXINE 0.088 MG TAB (88 MCG) PO SCH (06:02)
[2017-03-20 06:12] LABS: ALBUMIN 3.5 GM/DL (3.2-5.2); ALBUMIN/GLOBULIN RATIO 0.88 (1.00-1.93); BILIRUBIN,TOTAL 1.2 MG/DL (0.2-1.0); CALCIUM LEVEL 8.8 MG/DL (8.8-10.2); CREATININE FOR GFR 1.4 MG/DL (0.55-1.02); GLOMERULAR FILTRATION RATE 37.9 (>32); MAGNESIUM LEVEL 2.2 MG/DL (1.8-2.4); POTASSIUM SERUM 4.2 MEQ/L (3.5-5.1); TOTAL PROTEIN 7.5 GM/DL (6.4-8.2)
[2017-03-20] MEDS: FORMOTEROL FUMARATE 20 MCG/2 ML INHALATION SOLUTION (PERFOROMIST) INH SCH ×2 (07:53→20:29)
[2017-03-20 08:00] VITALS: BP 135/103
[2017-03-20] MEDS: MULTIVITAMINS/MINERALS THERAP 1 TAB PO SCH (08:47)
[2017-03-20] MEDS: NORTRIPTYLINE 25 MG CAP PO SCH ×2 (08:47→20:39)
[2017-03-20] MEDS: METOPROLOL TART 50 MG TAB PO SCH ×2 (08:48→20:40)
[2017-03-20] MEDS: DOCUSATE SODIUM 100 MG CAP PO SCH (08:48)
[2017-03-20] MEDS: OMEGA-3 1050MG CAPSULE PO SCH (08:48)
[2017-03-20] MEDS: APIXABAN 5 MG TAB (ELIQUIS) PO SCH ×2 (08:48→20:40)
--- NOTE | 2017-03-20 11:02 | IPNPDOC ---
Subjective Date Seen The patient was seen on 03/20/17. Subjective Chief Complaint/HPI The patient is a 86-year-old female admitted with a reason for visit of Acute Chronic Systolic Heart Failure. Events since last encounter Continues with MILLS. Receiving Furosemide 40 mg IV q 4 hrs with minimal change in I/O. + blood cxs noted. Gram + cocci in chains. Constitutional: Denies: Chills, Fever, Night Sweats ENT: Denies: Head Aches, Ear Pain, Dysphagia Skin: Denies: Rash, Lesions, Breakdown Pulmonary: Reports: Dyspnea, Cough Cardiovascular: Denies: Chest Pain, Palpitations, Orthopnea, Paroxysmal Noc. Dyspnea, Lt Headedness Gastrointestinal: Denies: Nausea, Vomiting, Abdominal Pain, Diarrhea, Constipation Psych: Reports: Mood Normal, Denies: Depression, Memory Issues Objective Physical Examination General Exam: Positive: Alert, No Acute Distress Eye Exam: Positive: PERRLA, Conjunctiva & lids normal, EOMI, Negative: Sclera icteric Neck Exam: Positive: Supple, Negative: JVD, thyromegaly Chest Exam: Positive: Rales Heart Exam: Positive: Rate Normal, Regular Rhythm, Normal S1, Normal S2, Negative: Murmurs, Rubs Telemetry: Positive: Atrial fibrillation Abdomen Exam: Positive: Normal bowel sounds, Soft, Negative: Tenderness, Hepatospenomegaly Skin Exam: Positive: Other skin issue (RIght rm with open bluster, active weeping. ) Psych Exam: Positive: Mental status NL, Mood NL, Oriented x 3 Assessment /Plan Problems (1) Acute on chronic systolic (congestive) heart failure Status: Acute Problem Specific Plan: Monitor Clinically Problem Text: Needs more aggressive diuresis. Will give 80mg IV x 1 and re- adjust dosing pending results. Needs renal function and electrolyte monitoring (2) Positive blood cultures Problem Text: KES: Patient had positive blood cultures, both drawn at the same time; we are uncertain if these were drawn from the same site and could represent contaminate. Patient received one dose of ceftriaxone today. I examined her this afternoon and she does not appear septic and has no obvious source of infection; WBCs are normal and she has been afebrile; lungs are clear on CXR. We need to repeat blood cultures now to determine if bacteremia is truly present; we will also get an ESR and CRP - if these are not significantly elevated, we should stop ceftriaxone and monitor. If ESR and CRP are elevated, we may need to get a repeat echo to rule-out endocarditis. JA: Bl cx + x 2. Gram + cocci in chains. Started on Ceftriaxone 2 grams IV q 24 hours. Has tolerated Cephalexin in the past, confirmed with Pharmacy: [facility] in [place]. (3) CHF (congestive heart failure) Permanent Comment: Echo 10/2016 1. Study is of fair technical quality. 2. Normal LV size with mild LVH, global hypokinesis and more pronounced hypokinesis of the septum and apex and overall EF estimated around 30-35%. 3. Aortic sclerosis but no significant stenosis. 4. At least moderate mitral insufficiency. 5. Moderate tricuspid insufficiency. 6. Unable to estimate central venous pressure. 7. At least mild pulmonary hypertension. Last Edited By: Nicole Rice NP on March 20, 2017 10:57 Status: Acute Problem Specific Plan: Monitor Clinically Problem Text: . (4) Atrial fibrillation Status: Chronic Response to Treatment: Stable Problem Text: rate controlled. (5) Pulmonary fibrosis Status: Chronic (6) CKD (chronic kidney disease), stage III Status: Chronic (7) Hx TIA/stroke w/o resid Status: Chronic (8) Carotid arterial disease Status: Chronic (9) Restrictive lung disease due to kyphoscoliosis Status: Chronic (10) Peripheral vascular disease of extremity with claudication Status: Chronic Plan/VTE VTE Prophylaxis Ordered?: Yes (Apixaban) Plan Family Medicine Attending Note: I saw and examined Mrs. Linda this afternoon ; I d/w Nicole Rice NP and I agree with her note with noted additions. She is not diuresing very well today despite increasing her lasix dosing - I added an additional 40 mg this afternoon to her scheduled 40 mg dose at 16:00 - if she continues to have poor diuresis overnight, we can consider switching to torsemide or bumex tomorrow. I ordered repeat blood cultures and ESR and CRP this afternoon - see notes above. (KES) VS, I&O, 24H, Fishbone Vital Signs/I&O Vital Signs Date Time Temp Pulse Resp B/P (MAP) Pulse Ox O2 Delivery O2 Flow Rate FiO2 03/20/17 08:48 116 130/88 03/20/17 08:05 Room Air 03/20/17 08:00 99.3 20 95 I&O- Last 24 Hours up to 6 AM 03/20/17 06:00 Intake Total 1280 ml Output Total 1475 ml Balance -195 ml Laboratory Data 24H LABS Laboratory Tests 2 03/19/17 11:12: White Blood Count 7.8, Red Blood Count 4.55, Hemoglobin 15.9, Hematocrit 47.4H, Mean Corpuscular Volume 104.2H, Mean Corpuscular Hemoglobin 34.9H, Mean Corpuscular Hemoglobin Concent 33.5, Red Cell Distribution Width 13.2, Platelet Count 228, Neutrophils (%) (Auto) 83.6H, Lymphocytes (%) (Auto) 8.5L, Monocytes (%) (Auto) 5.9H, Eosinophils (%) (Auto) 0.5, Basophils (%) (Auto) 0.1, Neutrophils # (Auto) 6.5, Lymphocytes # (Auto) 0.7L, Monocytes # (Auto) 0.5, Eosinophils # (Auto) 0.0, Basophils # (Auto) 0.0, Large Unclassified Cells % 1.4 , Large Unclassified Cells # 0.1, Anion Gap 9, Glomerular Filtration Rate 43.6, Lactic Acid Level 2.4*H, Calcium Level 9.4, Magnesium Level 2.3, Aspartate Amino Transf (AST/SGOT) 54H, Alanine Aminotransferase (ALT/SGPT) 62, Alkaline Phosphatase 99, Total Bilirubin 1.4H, Direct Bilirubin 0.4H, Total Creatine Kinase 329H, Creatine Kinase MB 8.8H, Creatine Kinase MB Relative Index 2.67, Troponin I 0.04, B-Type Natriuretic Peptide 1830H, Total Protein 7.7, Albumin 3.7, Albumin/Globulin Ratio 0.93L, Thyroid Stimulating Hormone (TSH) 2.030 03/19/17 11:13: Prothrombin Time 21.1H, Prothromb Time International Ratio 1.81 03/19/17 17:51: Lactic Acid Level 1.6, Total Creatine Kinase 269H, Creatine Kinase MB 6.8H, Creatine Kinase MB Relative Index 2.52 03/19/17 23:33: Total Creatine Kinase 236H, Creatine Kinase MB 5.5H, Creatine Kinase MB Relative Index 2.33, Troponin I 0.04, Potassium Level 3.4L 03/20/17 00:19: Urine Appearance HAZY, Urine Color YELLOW, Urine pH 6.0, Urine Specific [place] 1.006, Urine Protein NEGATIVE, Urine Glucose (UA) NEGATIVE, Urine Ketones NEGATIVE, Urine Urobilinogen 0.2, Urine Bilirubin NEGATIVE, Urine Leukocyte Esterase 3+H, Urine Blood 1+H, Urine Nitrite NEGATIVE, Urine WBC (Auto) 95H, Urine RBC (Auto) 8H, Urine Hyaline Casts (Auto) 1, Urine Bacteria (Auto) 3+H, Urine Squamous Epithelial Cells 1, Urine Sperm (Auto) 03/20/17 05:29: Anion Gap 12, Glomerular Filtration Rate 37.9, Blood Urea Nitrogen 48H, Creatinine 1.40H, Sodium Level 143, Potassium Level 4.2#, Chloride Level 105, Carbon Dioxide Level 26, Calcium Level 8.8, Aspartate Amino Transf (AST/SGOT) 62H, Alanine Aminotransferase (ALT/SGPT) 71, Total Creatine Kinase 260H, Alkaline Phosphatase 101, Total Bilirubin 1.2H, Total Protein 7.5, Albumin 3.5, Magnesium Level 2.2, Creatine Kinase MB 5.7H, Creatine Kinase MB Relative Index 2.19, Troponin I 0.04, Albumin/Globulin Ratio 0.88L CBC/BMP Laboratory Tests 03/19/17 11:12 Red Blood Count 4.55, Mean Corpuscular Volume 104.2 H, Mean Corpuscular Hemoglobin 34.9 H, Mean Corpuscular Hemoglobin Concent 33.5, Red Cell Distribution Width 13.2, Neutrophils (%) (Auto) 83.6 H, Lymphocytes (%) (Auto) 8.5 L, Monocytes (%) (Auto) 5.9 H, Eosinophils (%) (Auto) 0.5, Basophils (%) ( Auto) 0.1, Neutrophils # (Auto) 6.5, Lymphocytes # (Auto) 0.7 L, Monocytes # ( Auto) 0.5, Eosinophils # (Auto) 0.0, Basophils # (Auto) 0.0 03/19/17 23:33 Total Creatine Kinase 236 H 03/20/17 05:29 Red Blood Count 4.55, Mean Corpuscular Volume 103.4 H, Mean Corpuscular Hemoglobin 35.0 H, Mean Corpuscular Hemoglobin Concent 33.8, Red Cell Distribution Width 13.3, Total Creatine Kinase 260 H, Calcium Level 8.8, Aspartate Amino Transf (AST/SGOT) 62 H, Alanine Aminotransferase (ALT/SGPT) 71, Alkaline Phosphatase 101, Total Bilirubin 1.2 H, Total Protein 7.5, Albumin 3.5 Microbiology Microbiology 03/19/17 Blood Culture - Preliminary, Resulted 03/19/17 Blood Culture - Preliminary, Resulted Nicole Rice March 20, 2017 11:02 PAIGE SAMPSON MD March 20, 2017 17:18
[2017-03-20] MEDS ORDERED: FUROSEMIDE 100 MG/10 ML VIAL (J1940) IV ONE (11:15)
[2017-03-20] MEDS: cefTRIAXone SOD 2 GM in D5W MINI-BAG PLUS 50 ML IV SCH (11:49)
[2017-03-20 12:20] VITALS: BP 165/105
[2017-03-20 15:15] VITALS: BP 156/117
[2017-03-20] MEDS: NYSTATIN 100,000 UNITS/GM TOPICAL PWD 15 GM TOP SCH ×2 (15:45→21:53)
[2017-03-20] MEDS ORDERED: FUROSEMIDE 40 MG/4 ML VIAL (J1940) IV ONE (16:30)
[2017-03-20 19:20] VITALS: BP 127/100
[2017-03-20 23:32] VITALS: BP 126/100
[2017-03-21] MEDS: FUROSEMIDE 40 MG/4 ML VIAL (J1940) IV SCH ×5 (03:54→20:00)
[2017-03-21 04:03] VITALS: BP 153/106
[2017-03-21] MEDS: LEVOTHYROXINE 0.088 MG TAB (88 MCG) PO SCH (05:29)
[2017-03-21 06:13] LABS: MEAN CORPUSCULAR HEMOGLOBIN 34.9 pg (27.0-33.0); MEAN CORPUSCULAR HGB CONC 33.9 g/dl (32.0-36.5); RED CELL DISTRIBUTION WIDTH 13.4 % (11.5-14.5); WHITE BLOOD COUNT 8.5 K/mm3 (4.0-10.0)
[2017-03-21 06:18] LABS: ALBUMIN 3.4 GM/DL (3.2-5.2); ALBUMIN/GLOBULIN RATIO 0.92 (1.00-1.93); BILIRUBIN,TOTAL 0.9 MG/DL (0.2-1.0); CALCIUM LEVEL 8.8 MG/DL (8.8-10.2); CREATININE FOR GFR 1.43 MG/DL (0.55-1.02); POTASSIUM SERUM 3.7 MEQ/L (3.5-5.1); TOTAL PROTEIN 7.1 GM/DL (6.4-8.2)
[2017-03-21 07:30] VITALS: BP 153/104
[2017-03-21] MEDS: FORMOTEROL FUMARATE 20 MCG/2 ML INHALATION SOLUTION (PERFOROMIST) INH SCH ×2 (07:59→20:14)
[2017-03-21] MEDS: OMEGA-3 1050MG CAPSULE PO SCH (08:51)
[2017-03-21] MEDS: METOPROLOL TART 50 MG TAB PO SCH ×2 (08:51→22:24)
[2017-03-21] MEDS: NORTRIPTYLINE 25 MG CAP PO SCH ×2 (08:51→22:16)
[2017-03-21] MEDS: DOCUSATE SODIUM 100 MG CAP PO SCH (08:51)
[2017-03-21] MEDS: MULTIVITAMINS/MINERALS THERAP 1 TAB PO SCH (08:52)
[2017-03-21] MEDS: NYSTATIN 100,000 UNITS/GM TOPICAL PWD 15 GM TOP SCH ×2 (09:00→22:23)
[2017-03-21] MEDS: APIXABAN 5 MG TAB (ELIQUIS) PO SCH ×2 (09:00→22:17)
--- NOTE | 2017-03-21 11:21 | IPNPDOC ---
Subjective Date Seen The patient was seen on 03/21/17. Subjective Chief Complaint/HPI The patient is a 86-year-old female admitted with a reason for visit of Acute Chronic Systolic Heart Failure. Events since last encounter Pt without new concerns. She reports that she does feel better. Breathing is better, swelling has improved. General: Denies: Fatigue Constitutional: Denies: Chills, Fever Pulmonary: Denies: Dyspnea, Cough Cardiovascular: Denies: Chest Pain, Palpitations Gastrointestinal: Denies: Nausea, Vomiting, Diarrhea Neurological: Reports: Weakness Psych: Reports: Mood Normal Objective Physical Examination General Exam: Positive: Alert, No Acute Distress Eye Exam: Positive: Conjunctiva & lids normal, Negative: Sclera icteric Neck Exam: Positive: Supple, Negative: JVD, thyromegaly Chest Exam: Positive: Rales Heart Exam: Positive: Rate Normal, Regular Rhythm, Normal S1, Normal S2, Negative: Murmurs, Rubs Telemetry: Positive: Atrial fibrillation Abdomen Exam: Positive: Normal bowel sounds, Soft, Negative: Tenderness, Hepatospenomegaly Skin Exam: Positive: Other skin issue (RIght rm with open bluster, active weeping. ) Psych Exam: Positive: Mental status NL, Mood NL, Oriented x 3 Assessment /Plan Problems (1) Acute on chronic systolic (congestive) heart failure Status: Acute Problem Specific Plan: Monitor Clinically Problem Text: 03/21 - Lasix dose increased yesterday, Net neg of 850 yesterday, today at 990 already, will continue current diuresis. Adjusted for 1500 cc 24 h. 03/20 Needs more aggressive diuresis. Will give 80mg IV x 1 and re-adjust dosing pending results. Needs renal function and electrolyte monitoring (2) Positive blood cultures Problem Text: ESR 15, CRP 2.16, will address with attending plans for abx, I don't think the CRP is related to infection. 03/20 KES: Patient had positive blood cultures, both drawn at the same time; we are uncertain if these were drawn from the same site and could represent contaminate. Patient received one dose of ceftriaxone today. I examined her this afternoon and she does not appear septic and has no obvious source of infection; WBCs are normal and she has been afebrile; lungs are clear on CXR. We need to repeat blood cultures now to determine if bacteremia is truly present ; we will also get an ESR and CRP - if these are not significantly elevated, we should stop ceftriaxone and monitor. If ESR and CRP are elevated, we may need to get a repeat echo to rule-out endocarditis. JA: Bl cx + x 2. Gram + cocci in chains. Started on Ceftriaxone 2 grams IV q 24 hours. Has tolerated Cephalexin in the past, confirmed with [facility]acy: [facility] in [place]. (3) CHF (congestive heart failure) Permanent Comment: Echo 10/2016 1. Study is of fair technical quality. 2. Normal LV size with mild LVH, global hypokinesis and more pronounced hypokinesis of the septum and apex and overall EF estimated around 30-35%. 3. Aortic sclerosis but no significant stenosis. 4. At least moderate mitral insufficiency. 5. Moderate tricuspid insufficiency. 6. Unable to estimate central venous pressure. 7. At least mild pulmonary hypertension. Last Edited By: Nicole Rice NP on March 20, 2017 10:57 Status: Acute Problem Specific Plan: Monitor Clinically Problem Text: See above for mgmt.. (4) Atrial fibrillation Status: Chronic Response to Treatment: Stable Problem Text: rate controlled. (5) Pulmonary fibrosis Status: Chronic (6) CKD (chronic kidney disease), stage III Status: Chronic (7) Hx TIA/stroke w/o resid Status: Chronic (8) Carotid arterial disease Status: Chronic (9) Restrictive lung disease due to kyphoscoliosis Status: Chronic (10) Peripheral vascular disease of extremity with claudication Status: Chronic (11) Hypertension Status: Chronic Response to Treatment: Uncontrolled Problem Text: Patient has had persistently elevated diastolic BP that has not improved with diuresis; I recommended one-time low-dose amlodipine. Patient has reported h/o allergy to diltiazem per [facility] record dated 2012 with reaction "unknown". Patient and her daughter do not recall her having an allergy to this. I reviewed prior records - she received amlodipine for several days as an inpatient in 12/2014 and notes do not report any reaction to this, so will give amlodipine now. Plan/VTE VTE Prophylaxis Ordered?: Yes (Apixaban) Plan Family medicine attending note: I saw and examined Mrs. Linda this afternoon ; I d/w FRANCO Klein and I agree with her note as above. Patient has been diuresing well today and she reports less leg swelling and less SOB. Lung exam is improved today, with no rales or rhonchi. She was scheduled to receive a PICC line today - I think this this is not necessary, as the only medication she is receiving via IV is lasix and we will likely be switching to PO lasix within the next day or two, so I canceled her PICC line order. Repeat blood cultures are pending. I d/w her daughter Kristina, who is an ICU nurse, and she is fairly certain that the two blood cultures drawn in the ED were drawn from the same site. ESR was normal; CRP is mildly elevated but I do not think this reflects infection. Patient continues to have normal WBCs, to be afebrile, and to feel fairly good. She also had an echocardiogram done at [facility] on 03/05/17 that showed no valvular masses or vegetations and reduced systolic function. Therefore, I stopped ceftriaxone and we will follow-up her repeat blood culture results. VS, I&O, 24H, Fishbone Vital Signs/I&O Vital Signs Date Time Temp Pulse Resp B/P (MAP) Pulse Ox O2 Delivery O2 Flow Rate FiO2 03/21/17 08:51 108 153/106 03/21/17 07:52 Room Air 03/21/17 07:30 97.9 20 100 I&O- Last 24 Hours up to 6 AM 03/21/17 05:59 Intake Total 1110 ml Output Total 2990 ml Balance -1880 ml Laboratory Data 24H LABS Laboratory Tests 2 03/20/17 17:44: Erythrocyte Sedimentation Rate 13, C-Reactive Protein, Quantitative 2.16H 03/21/17 05:40: Anion Gap 10, Glomerular Filtration Rate 37.0, Blood Urea Nitrogen 47H, Creatinine 1.43H, Sodium Level 142, Potassium Level 3.7, Chloride Level 101, Carbon Dioxide Level 31, Calcium Level 8.8, Aspartate Amino Transf (AST/SGOT) 56H, Alanine Aminotransferase (ALT/SGPT) 69, Alkaline Phosphatase 93, Total Bilirubin 0.9, Total Protein 7.1, Albumin 3.4, Magnesium Level 2.0, Albumin/ Globulin Ratio 0.92L CBC/BMP Laboratory Tests 03/21/17 05:40 Red Blood Count 4.38, Mean Corpuscular Volume 103.0 H, Mean Corpuscular Hemoglobin 34.9 H, Mean Corpuscular Hemoglobin Concent 33.9, Red Cell Distribution Width 13.4, Calcium Level 8.8, Aspartate Amino Transf (AST/SGOT) 56 H, Alanine Aminotransferase (ALT/SGPT) 69, Alkaline Phosphatase 93, Total Bilirubin 0.9, Total Protein 7.1, Albumin 3.4 Microbiology Microbiology 03/20/17 Blood Culture, Received Pending 03/20/17 Blood Culture, Received Pending 03/19/17 Blood Culture - Preliminary, Resulted 03/19/17 Blood Culture - Preliminary, Resulted KEITH PARIKH PA-C Mar 21, 2017 11:21 PAIGE SAMPSON MD Mar 21, 2017 16:49
[2017-03-21 12:00] VITALS: BP 139/100
[2017-03-21] MEDS ORDERED: SLF 3 ML SYR IV PRN (12:30)
[2017-03-21] MEDS: SLF 3 ML SYR IV SCH ×2 (13:04→22:21)
[2017-03-21] MEDS: cefTRIAXone SOD 2 GM in D5W MINI-BAG PLUS 50 ML IV SCH (13:04)
[2017-03-21 16:00] VITALS: BP 160/96
[2017-03-21 19:23] VITALS: BP 139/98
[2017-03-22] MEDS: FUROSEMIDE 40 MG TAB PO SCH ×4 (00:24→12:29)
[2017-03-22 00:51] VITALS: BP 142/93
[2017-03-22 03:37] VITALS: BP 141/93
[2017-03-22] MEDS: LEVOTHYROXINE 0.088 MG TAB (88 MCG) PO SCH (04:52)
[2017-03-22] MEDS: SLF 3 ML SYR IV SCH ×2 (04:54→13:22)
[2017-03-22 05:54] LABS: MEAN CORPUSCULAR HEMOGLOBIN 34.7 pg (27.0-33.0); MEAN CORPUSCULAR HGB CONC 33.9 g/dl (32.0-36.5); MEAN CORPUSCULAR VOLUME 102.6 fl (80.0-96.0); RED CELL DISTRIBUTION WIDTH 13.5 % (11.5-14.5)
[2017-03-22 06:08] LABS: ALBUMIN 3.2 GM/DL (3.2-5.2); ALBUMIN/GLOBULIN RATIO 0.94 (1.00-1.93); BILIRUBIN,TOTAL 0.7 MG/DL (0.2-1.0); CALCIUM LEVEL 8.9 MG/DL (8.8-10.2); CREATININE FOR GFR 1.27 MG/DL (0.55-1.02); GLOMERULAR FILTRATION RATE 42.4 (>32); POTASSIUM SERUM 3.2 MEQ/L (3.5-5.1); TOTAL PROTEIN 6.6 GM/DL (6.4-8.2)
[2017-03-22 08:00] VITALS: BP 148/96
[2017-03-22] MEDS: FORMOTEROL FUMARATE 20 MCG/2 ML INHALATION SOLUTION (PERFOROMIST) INH SCH (08:26)
[2017-03-22] MEDS: NORTRIPTYLINE 25 MG CAP PO SCH (08:43)
[2017-03-22 08:44] VITALS: BP 148/96
[2017-03-22] MEDS: APIXABAN 5 MG TAB (ELIQUIS) PO SCH (08:44)
[2017-03-22] MEDS: DOCUSATE SODIUM 100 MG CAP PO SCH (08:44)
[2017-03-22] MEDS: METOPROLOL TART 50 MG TAB PO SCH (08:44)
[2017-03-22] MEDS: MULTIVITAMINS/MINERALS THERAP 1 TAB PO SCH (08:44)
[2017-03-22] MEDS: OMEGA-3 1050MG CAPSULE PO SCH (08:44)
[2017-03-22] MEDS: NYSTATIN 100,000 UNITS/GM TOPICAL PWD 15 GM TOP SCH (08:45)
[2017-03-22] MEDS ORDERED: POTASSIUM CHLORIDE 10 MEQ SR TABLET PO ONE (09:30)
--- NOTE | 2017-03-22 10:34 | IPNPDOC ---
Subjective Date Seen The patient was seen on 03/22/17. Subjective Chief Complaint/HPI The patient is a 86-year-old female admitted with a reason for visit of Acute Chronic Systolic Heart Failure. Events since last encounter Pt this morning is feeling pretty well. She has no new concerns. She would like to get up and walk some more than she has. She is waiting for her dgt to come and walk with her. General: Denies: Fatigue Constitutional: Denies: Chills, Fever Pulmonary: Denies: Dyspnea, Cough Cardiovascular: Denies: Chest Pain, Palpitations Gastrointestinal: Denies: Nausea, Vomiting, Diarrhea Neurological: Denies: Weakness Psych: Reports: Mood Normal Objective Physical Examination General Exam: Positive: Alert, No Acute Distress Eye Exam: Positive: Conjunctiva & lids normal, Negative: Sclera icteric Neck Exam: Positive: Supple, Negative: JVD, thyromegaly Chest Exam: Positive: Rales Heart Exam: Positive: Rate Normal, Regular Rhythm, Normal S1, Normal S2, Negative: Murmurs, Rubs Telemetry: Positive: Atrial fibrillation Abdomen Exam: Positive: Normal bowel sounds, Soft, Negative: Tenderness, Hepatospenomegaly Skin Exam: Positive: Other skin issue (RIght rm with open bluster, active weeping. ) Psych Exam: Positive: Mental status NL, Mood NL, Oriented x 3 Assessment /Plan Problems (1) Acute on chronic systolic (congestive) heart failure Status: Acute Problem Specific Plan: Monitor Clinically Problem Text: 03/22 - Neg Neg -1300 yest, she is feeling better. IV lasix changed to PO. 03/21 - Lasix dose increased yesterday, Net neg of 850 yesterday, today at 990 already, will continue current diuresis. Adjusted for 1500 cc 24 h. 03/20 Needs more aggressive diuresis. Will give 80mg IV x 1 and re-adjust dosing pending results. Needs renal function and electrolyte monitoring (2) Positive blood cultures Problem Text: 03/22- 1 culture + strep sanguis, 1 + for strep mitis, these are both likely contaminates, repeat cultures are negative. IVX abx has been stopped. ESR 15, CRP 2.16, will address with attending plans for abx, I don't think the CRP is related to infection. 03/20 KES: Patient had positive blood cultures, both drawn at the same time; we are uncertain if these were drawn from the same site and could represent contaminate. Patient received one dose of ceftriaxone today. I examined her this afternoon and she does not appear septic and has no obvious source of infection; WBCs are normal and she has been afebrile; lungs are clear on CXR. We need to repeat blood cultures now to determine if bacteremia is truly present ; we will also get an ESR and CRP - if these are not significantly elevated, we should stop ceftriaxone and monitor. If ESR and CRP are elevated, we may need to get a repeat echo to rule-out endocarditis. JA: Bl cx + x 2. Gram + cocci in chains. Started on Ceftriaxone 2 grams IV q 24 hours. Has tolerated Cephalexin in the past, confirmed with Pharmacy: [facility] in [place]. (3) CHF (congestive heart failure) Permanent Comment: Echo 10/2016 1. Study is of fair technical quality. 2. Normal LV size with mild LVH, global hypokinesis and more pronounced hypokinesis of the septum and apex and overall EF estimated around 30-35%. 3. Aortic sclerosis but no significant stenosis. 4. At least moderate mitral insufficiency. 5. Moderate tricuspid insufficiency. 6. Unable to estimate central venous pressure. 7. At least mild pulmonary hypertension. Last Edited By: Nicole Rice NP on March 20, 2017 10:57 Status: Acute Problem Specific Plan: Monitor Clinically Problem Text: See above for mgmt.. (4) Atrial fibrillation Status: Chronic Response to Treatment: Stable Problem Text: rate controlled. (5) Pulmonary fibrosis Status: Chronic (6) CKD (chronic kidney disease), stage III Status: Chronic (7) Hx TIA/stroke w/o resid Status: Chronic (8) Carotid arterial disease Status: Chronic (9) Restrictive lung disease due to kyphoscoliosis Status: Chronic (10) Peripheral vascular disease of extremity with claudication Status: Chronic (11) Hypertension Status: Chronic Response to Treatment: Uncontrolled Problem Text: Patient has had persistently elevated diastolic BP that has not improved with diuresis; I recommended one-time low-dose amlodipine. Patient has reported h/o allergy to diltiazem per [facility] record dated 2012 with reaction "unknown". Patient and her daughter do not recall her having an allergy to this. I reviewed prior records - she received amlodipine for several days as an inpatient in 12/2014 and notes do not report any reaction to this, so will give amlodipine now. Family Medicine Attending Note: Patient seen today and d/w FRANCO Klein. I discharged Mrs. Linda this afternoon - please see my discharge note from today for details. (KES) Plan/VTE VTE Prophylaxis Ordered?: Yes (Apixaban) Plan Therapy: PT Will transfer to the floor, have PT eval, if safe home either later today or tomorrow. VS, I&O, 24H, Fishbone Vital Signs/I&O Vital Signs Date Time Temp Pulse Resp B/P (MAP) Pulse Ox O2 Delivery O2 Flow Rate FiO2 03/22/17 08:44 106 148/96 03/22/17 08:00 96.6 20 95 Room Air I&O- Last 24 Hours up to 6 AM 03/22/17 06:00 Intake Total 1140 ml Output Total 1875 ml Balance -735 ml Laboratory Data 24H LABS Laboratory Tests 2 03/22/17 05:25: Anion Gap 10, Glomerular Filtration Rate 42.4, Blood Urea Nitrogen 52H, Creatinine 1.27H, Sodium Level 143, Potassium Level 3.2L, Chloride Level 104, Carbon Dioxide Level 29, Calcium Level 8.9, Aspartate Amino Transf (AST/SGOT) 43H, Alanine Aminotransferase (ALT/SGPT) 60, Alkaline Phosphatase 84, Total Bilirubin 0.7, Total Protein 6.6, Albumin 3.2, Magnesium Level 2.0, Albumin/ Globulin Ratio 0.94L CBC/BMP Laboratory Tests 03/22/17 05:25 Red Blood Count 4.31, Mean Corpuscular Volume 102.6 H, Mean Corpuscular Hemoglobin 34.7 H, Mean Corpuscular Hemoglobin Concent 33.9, Red Cell Distribution Width 13.5, Calcium Level 8.9, Aspartate Amino Transf (AST/SGOT) 43 H, Alanine Aminotransferase (ALT/SGPT) 60, Alkaline Phosphatase 84, Total Bilirubin 0.7, Total Protein 6.6, Albumin 3.2 Microbiology Microbiology 03/20/17 Blood Culture - Preliminary, Resulted No growth after 24 hours . All specim... 03/20/17 Blood Culture - Preliminary, Resulted No growth after 24 hours . All specim... 03/19/17 Blood Culture - Final, Complete Streptococcus Sanguinis 03/19/17 Blood Culture - Final, Complete Streptococcus Mitis KEITH PARIKH PA-C Mar 22, 2017 10:33 PAIGE SAMPSON MD Mar 22, 2017 16:24
[2017-03-22] MEDS ORDERED: FURO40TA2 PO (13:26)
--- NOTE | 2017-03-23 04:26 | DSES ---
DATE OF ADMISSION: 03/19/2017 DATE OF DISCHARGE: 03/22/2017 DISCHARGING PHYSICIAN: Nohelia Mann MD. PRINCIPAL DIAGNOSES: 1. Acute exacerbation of chronic systolic heart failure. 2. Positive blood cultures. 3. Hypokalemia. SECONDARY DIAGNOSES: 1. Chronic atrial fibrillation. 2. Chronic kidney disease stage III. 3. Hypertension. 4. Hypothyroidism. 5. Lower extremity neuropathy. 6. Lower extremity skin blisters. 7. Pulmonary fibrosis. 8. Osteoporosis. CONSULTANTS: None. INVASIVE PROCEDURES: None. SUMMARY STATEMENT: This is an 86-year-old woman with a history of hypertension and chronic systolic heart failure with an ejection fraction (EF) of 30-35%, who presented with 1 week of increasing shortness of breath, orthopnea, and nocturia. She also had increasing lower extremity edema in the week prior to admission with formation of multiple blisters on right pretibial area. Patient's daughter thinks that she was not following her fluid restriction of 1800 mL daily and may have been drinking extra fluids. She was treated with intravenous (IV) Lasix during her hospital stay, had initial slow response, but ultimately responded well with a loss of 2.5 liters over the course of her hospitalization. She had improvement in respiratory status and her leg edema and was discharged home on furosemide at a higher dose of 40 mg twice daily. She was also noted to have positive blood cultures; however, we suspect these may be contaminated as she had no other signs of infection. Her lab work will be repeated after discharge and followed up as an outpatient. DISCHARGE PLAN: DISCHARGE MEDICATIONS: - furosemide 40 mg by mouth twice daily - alendronate 70 mg once weekly - apixaban 5 mg by mouth twice daily - docusate 100 mg daily - fish oil 1000 mg daily - Perforomist 20 mcg per 2 mL nebulization 20 mcg by inhalation twice daily - levothyroxine 88 mcg by mouth daily - metoprolol tartrate 50 mg by mouth twice daily - multivitamin one tablet daily - nortriptyline HCl 25 mg by mouth twice daily MEDICATIONS: Stopped during this admission: - furosemide 40 mg daily FOLLOWUP: With Dr. Nohelia Mann on 03/28/2017, at 1500. CONDITION: Stable. PROGNOSIS: Good. PENDING STUDIES: Finalized blood cultures. DIET: Low-salt diet with 1800 mL fluid restriction daily. ACTIVITY: As tolerated. HOSPITAL COURSE: This is an 86-year-old woman with: 1. Acute exacerbation of chronic systolic congestive heart failure: This was likely due to patient not following her fluid restriction strictly at home. She received IV furosemide during her hospitalization and had good diuresis with a net loss of about 2.5 liters. She did still have some increased lower extremity edema above her baseline at time of discharge and so her home furosemide dose was increased to 40 mg twice daily by mouth. She will be reevaluated as an outpatient and once her swelling returns to baseline this may be able to be decreased to her home dose of 40 mg daily. She was counseled to follow her fluid restriction of 1800 mL daily. 2. Positive blood cultures: Initial blood cultures were positive. One was positive for Streptococcus mitis and the other was positive for Streptococcus sanguinis. These were drawn at the same time and patient's daughter, who is a nurse and was in the emergency room (ER) with the patient, believes they were drawn from the same site. These likely represent contamination; however, both of these bacteria may be associated with endocarditis. She received two doses of ceftriaxone in the hospital. Suspicion for endocarditis is low given the fact that patient did not appear septic, vital signs within normal limits. She was afebrile. White blood cell count was within normal limits. Erythrocyte sedimentation rate (ESR) was normal and C-reactive protein (CRP) was only very mildly elevated. Repeat blood cultures obtained in the hospital have so far been negative. She will have lab work drawn on 03/25/2017, with repeat blood cultures, complete blood count (CBC), CRP, ESR and basic metabolic panel. This will be followed up as an outpatient. Of note, patient also had and echocardiogram done on 03/05/2017, at her sales enablement lead's office that showed no vegetations of her valves. 3. Atrial fibrillation: Patient had mildly elevated heart rate upon admission in the low 100s. She was otherwise rate controlled during her hospitalization on her home metoprolol. Patient was continued on her home Eliquis. 4. Lower extremity blisters: Patient had multiple blisters on her right lower rm that burst during her hospitalization. These did not appear acutely infected at time of discharge. Her daughter states she has supplies at home in terms of Optifoam dressings and will apply these if needed. She will be followed up as an outpatient. 5. Hypokalemia: Patient had initially low potassium level. This was repleted and potassium remained within normal limits during her hospital stay. 6. Chronic kidney disease: Patient's kidney function was at baseline of approximately 1.2-1.3 at time of discharge. 7. Hypothyroidism: Patient was continued on her home levothyroxine. 8. Lower extremity neuropathy: Patient was continued on her home nortriptyline. 9. Pulmonary fibrosis: Patient was continued on her home Perforomist. 10. Osteoporosis: Patient was continued on her home Fosamax. Patient was to be evaluated by physical therapy prior to discharge; however, her daughter states that she can provide 24-hour care at home and that she is comfortable taking the patient home and they prefer to not wait for physical therapy evaluation, so patient was discharged in the care of her daughter.
== END 2017-03-22 15:05 | disposition home health service (06) | DRG 291 ==
LOC: M ED 13:37 → M ED INP 13:38 → M PCU 15:50
PROVIDERS: ADMIT Hospitalist; ATTEND Family Medicine
DX: I13.0 Hypertensive heart and chronic kidney disease with heart failure and stage 1 through stage 4 chronic kidney disease, or unspecified chronic kidney disease (principal); I50.23 Acute on chronic systolic (congestive) heart failure; E03.9 Hypothyroidism, unspecified; G57.93 Unspecified mononeuropathy of bilateral lower limbs; J84.10 Pulmonary fibrosis, unspecified; I73.00 Raynaud's syndrome without gangrene; I48.2 Chronic atrial fibrillation; M41.9 Scoliosis, unspecified; I27.2 Other secondary pulmonary hypertension; I08.1 Rheumatic disorders of both mitral and tricuspid valves; I73.9 Peripheral vascular disease, unspecified; M81.0 Age-related osteoporosis without current pathological fracture; Z96.652 Presence of left artificial knee joint; Z85.828 Personal history of other malignant neoplasm of skin; Z66 Do not resuscitate; E87.6 Hypokalemia; N18.3 Chronic kidney disease, stage 3 (moderate); Z79.899 Other long term (current) drug therapy; Z88.0 Allergy status to penicillin; Z88.8 Allergy status to other drugs, medicaments and biological substances; Z88.6 Allergy status to analgesic agent; Z86.73 Personal history of transient ischemic attack (TIA), and cerebral infarction without residual deficits; Z79.01 Long term (current) use of anticoagulants

== ENCOUNTER → 2017-03-25 | Outpatient (REF) | payer MEDICARE, OTHER ==
[~2017-03-25] MED LIST changes: +CENTTAB PO; +COLA100C3 PO; +FOSA70TA PO
[2017-03-25 13:48] LABS: BASO % 0.3 % (0.0-1.0); EOS # 0.1 K/mm3 (0.0-0.50); EOS % 0.7 % (0.0-3.0); LARGE UNSTAINED CELL # 0.1 K/mm3 (0.0-0.4); LARGE UNSTAINED CELL % 1.3 % (0.0-4.0); LYMPH # 0.8 K/mm3 (1.5-4.5); LYMPH % 8.2 % (24.0-44.0); MEAN CORPUSCULAR HEMOGLOBIN 34.6 pg (27.0-33.0); MEAN CORPUSCULAR VOLUME 104.6 fl (80.0-96.0); MONO # 0.5 K/mm3 (0.0-0.8); MONO % 5.5 % (0.0-5.0); NEUTROPHILS # 7.7 K/mm3 (1.8-7.7); NEUTROPHILS % 84.1 % (36.0-66.0); PLATELET COUNT, AUTOMATED 245 k/mm3 (150-450); RED CELL DISTRIBUTION WIDTH 13.5 % (11.5-14.5); WHITE BLOOD COUNT 9.2 K/mm3 (4.0-10.0)
[2017-03-25 14:02] LABS: CALCIUM LEVEL 9.4 MG/DL (8.8-10.2); CREATININE FOR GFR 1.3 MG/DL (0.55-1.02); GLOMERULAR FILTRATION RATE 41.2 (>32); POTASSIUM SERUM 3.5 MEQ/L (3.5-5.1)
[2017-03-25 15:00] LABS: ERYTHROCYTE SEDIMENTATION RATE 11 mm/hr (0-42)
== END ==
LOC: M SFHCADAM 11:25
PROVIDERS: ATTEND Family Medicine
DX: R78.81 Bacteremia (principal)

== ENCOUNTER → 2017-04-04 | Outpatient (REF) | payer MEDICARE, OTHER ==
[~2017-04-04] MED LIST changes: +CIPR-249 PO; -COLA100C3 PO; +COLA100C5 PO; +DOXY100T2 PO; +ELIQ2.5T PO; -METO50TA2 PO; +METO50TA7 PO; +MILKSUS PO; +PEG1POW PO; +TORS20TA2 PO
[2017-04-04 17:33] LABS: CALCIUM LEVEL 9.9 MG/DL (8.8-10.2); CREATININE FOR GFR 1.45 MG/DL (0.55-1.02); GLOMERULAR FILTRATION RATE 36.4 (>32); POTASSIUM SERUM 3.8 MEQ/L (3.5-5.1)
== END ==
LOC: M SFHCPLAZ 16:15
PROVIDERS: ATTEND Family Medicine
DX: N18.3 Chronic kidney disease, stage 3 (moderate) (principal)
CPT/HCPCS: 36415; 80048; G0463

== ENCOUNTER → 2017-04-18 | Outpatient (REF) | payer MEDICARE, OTHER ==
[2017-04-18 19:53] LABS: CALCIUM LEVEL 9.3 MG/DL (8.8-10.2); CREATININE FOR GFR 1.58 MG/DL (0.55-1.02); GLOMERULAR FILTRATION RATE 32.9 (>32)
== END ==
LOC: M SFHCPLAZ 15:48
PROVIDERS: ATTEND Family Medicine
DX: N18.3 Chronic kidney disease, stage 3 (moderate) (principal)

== ENCOUNTER 2017-04-24 15:26 | Inpatient (IN) | payer MEDICARE, OTHER ==
[~2017-04-24] VITALS: Ht 165.1 cm; Wt 63.0 kg
[~2017-04-24 15:26] MED LIST changes: -CIPR-249 PO; -DOXY100T2 PO; -ELIQ2.5T PO; -MILKSUS PO; -PEG1POW PO; -TORS20TA2 PO
[2017-04-24] MEDS ORDERED: ELIQ2.5T PO (15:55)
[2017-04-24] MEDS ORDERED: TORS20TA2 PO (15:55)
--- NOTE | 2017-04-24 16:44 | REP ---
CT HEAD WITHOUT CONTRAST: HISTORY: Altered mental status. COMPARISON: 12/26/2014 Areas of decreased attentuation are present in the basal ganglia. These represent old lacunar infarctions. Areas of decreased attentuation are present in the periventricular and subcortical white matter. This represents small vessel ischemic disease. There is no intraparenchymal hemorrhage, mass or midline shift. The ventricular system and cortical sulci are dilated consistent with mild volume loss. There is no extracerebral collection. The visualized sinuses are clear. IMPRESSION: 1. Old bilateral basal ganglia lacunar infarctions. 2. Small vessel ischemic disease. 3. Mild volume loss. Signed by Jeff Campbell MD 04/24/2017 04:51 P
[2017-04-24] MEDS ORDERED: METO50TA7 PO (17:13)
[2017-04-24 17:14] LABS: BASO % 0.1 % (0.0-1.0); LARGE UNSTAINED CELL # 0.1 K/mm3 (0.0-0.4); LARGE UNSTAINED CELL % 1.1 % (0.0-4.0); LYMPH # 0.4 K/mm3 (1.5-4.5); LYMPH % 2.9 % (24.0-44.0); MEAN CORPUSCULAR HEMOGLOBIN 34.7 pg (27.0-33.0); MEAN CORPUSCULAR HGB CONC 34.6 g/dl (32.0-36.5); MEAN CORPUSCULAR VOLUME 100.4 fl (80.0-96.0); MONO # 0.5 K/mm3 (0.0-0.8); MONO % 3.9 % (0.0-5.0); NEUTROPHILS # 11.4 K/mm3 (1.8-7.7); PLATELET COUNT, AUTOMATED 234 k/mm3 (150-450); RED CELL DISTRIBUTION WIDTH 12.8 % (11.5-14.5); WHITE BLOOD COUNT 12.4 K/mm3 (4.0-10.0)
[2017-04-24 17:23] LABS: INR 1.49
[2017-04-24 17:33] LABS: ERYTHROCYTE SEDIMENTATION RATE 41 mm/hr (0-42)
--- NOTE | 2017-04-24 18:08 | REP ---
UNILATERAL RIGHT LOWER EXTREMITY DUPLEX VEINS: HISTORY: Swelling. COMPARISON: 03/19/2017 There are no filling defects in the deep venous system. The deep venous system is patent. IMPRESSION: There is no deep venous thrombosis. Signed by Jeff Campbell MD 04/24/2017 06:21 P
[2017-04-24 19:03] LABS: ALBUMIN 3.1 GM/DL (3.2-5.2); ALBUMIN/GLOBULIN RATIO 0.72 (1.00-1.93); BILIRUBIN,DIRECT 0.4 MG/DL (0.0-0.2); BILIRUBIN,TOTAL 1.8 MG/DL (0.2-1.0); CALCIUM LEVEL 9.5 MG/DL (8.8-10.2); CREATININE FOR GFR 1.87 MG/DL (0.55-1.02); GLOMERULAR FILTRATION RATE 27.1 (>32); POTASSIUM SERUM 4.4 MEQ/L (3.5-5.1); TOTAL PROTEIN 7.4 GM/DL (6.4-8.2)
[2017-04-24] MEDS ORDERED: VANCOMYCIN HCL 1,000 MG, VIAL MATE ADAPTER 1 EACH in D5W 250 ML IV ONE (19:45)
--- NOTE | 2017-04-24 22:23 | REP ---
Clinical: Trauma. Technique: AP view of the pelvis with neutral and frog lateral views of the right hip. Findings: Frontal view of the pelvis demonstrates degenerative changes and possible right femoral neck fracture of indeterminate age. Multiple views of the left hip demonstrates no definite acute fracture. Impression: Advanced degenerative changes somewhat limit evaluation for subtle injury. Right femoral neck fracture of indeterminate age. Left hip demonstrates degenerative change without obvious fracture. If the patient remains symptomatic consider CT for more detailed evaluation. Signed by Alvarado Linares MD 04/24/2017 10:15 P
--- NOTE | 2017-04-24 22:25 | REP ---
Clinical: Trauma. Technique: AP, lateral, bilateral oblique and coned-down views of the lumbosacral spine. Findings: Osteopenia and advanced multilevel degenerative disc osteophyte complexes are noted. Alignment and lordosis maintained. No acute fracture / compression injury or subluxation. Impression: Advanced multilevel degenerative changes and osteopenia. No acute fracture or dislocation. Signed by Alvarado Linares MD 04/24/2017 10:16 P
[2017-04-24] MEDS ORDERED: MORPHINE 30 MG TAB **MSIR PO PRN (22:45)
[2017-04-24] MEDS ORDERED: PERCOCET 5MG/325MG TAB PO PRN (23:00)
--- NOTE | 2017-04-24 23:02 | HPEPDOC ---
General Date of Admission Apr 24, 2017 at 19:50 Primary Care Physician: PAIGE SAMPSON MD Other Providers Admitting Attending: Chan Carvalho MD Chief Complaint The patient is a 86-year-old female admitted with a reason for visit of Cellulitis. Source: Family Exam Limitations: Other (fatigue) Severity: Moderate History of Present Illness Ms Cowan is a 86 y/o female with past medical history of HTN, Raynaud, pulmonary fibrosis, hypothyroidism, a. fib and CHF,neuropathy, hx of TIA, PAD s/ p fem pop bypass on right leg, osteoporosis and atrophied right kidney presents today due to altered mental status changes, increased swelling, redness of right lower extremity. The pt is very fatigued and as such most of the history is taken from the daughter, who is a nurse. The daughter states that her mother was admitted to the hospital February 2017 for heart failure, and for the past two days she has noted increased swelling and redness in the patients right lower leg, she had an appt with her PCP today and were recommended to come to the hospital. The daughter also reports the pt becoming confused today when they were driving home on a route they do very often, she also mistook an alarm clock for a telephone today, activity that is abnormal for her as per daughter. Last night she also apparently fell out of bed early in the morning when she attempted to use the restroom, the pts daughter states that she did not sustain any injuries and was AAOx3 right after the event, she did not suffer loss of bowel or urine. The daughter states the pt has not been complaining of CP, SOB, nor fevers, muscle aches or chills, no change in bowel or urine habits, no contstipation, diarrhea, blood in urine or stool. On exam the pt has no active complaints except shes very fatigued, as it is past her bedtime and she has been awake for a while. Pt ambulates with a walker at home. Home Medications Scheduled Apixaban Base (Eliquis) 2.5 Mg Tab, 2.5 MG PO BID, (Reported) Docusate Sodium (Colace) 100 Mg Cap, 100 MG PO DAILY, (Reported) Fish Oil (Fish Oil) 1,000 Mg Cap, 1 CAP PO QPM, (Reported) Formoterol Fumarate Dihydrate (Perforomist) 20 Mcg/2 Ml Neb, 20 MCG INH BID, ( Reported) Levothyroxine Sodium (Synthroid) 88 Mcg Tab, 88 MCG PO DAILY, (Reported) Metoprolol Tartrate (Metoprolol Tartrate) 50 Mg Tab, 50 MG PO BID, (Reported) Multivitamins *SMC STOCKED* (Thera M Plus *[facility] STOCKED*) 1 Tab Tab, 1 TAB PO QPM , (Reported) Nortriptyline HCl (Nortriptyline HCl) 25 Mg Cap, 25 MG PO BID, (Reported) Torsemide (Torsemide) 20 Mg Tab, 20 MG PO BID, (Reported) Allergies Coded Allergies: MERCY Inhibitors (Verified Allergy, Intermediate, 04/24/17) Cough Diltiazem (Verified Allergy, Intermediate, 04/24/17) Penicillins (Verified Allergy, Intermediate, HIVES, 01/06/14) Penicillins Cross Reactors (Verified Allergy, Unknown, 01/22/13) Ibuprofen (Verified Adverse Reaction, Intermediate, GI UPSET, 01/06/14) Past Medical History Medical History HTN Hypothyroid neuropathy with foot drop. Uses walker at home. 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 Dr Nava TTE 11/06 EF 30-35%, Mod Severe MR, Mild Pulm HTN. 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 Unchanged MRI 11/06 c/w 2014. 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 Family History Significant Family History: No pertinent family hx Social History * Smoker: Denies Alcohol: Denies Drugs: denies lives at home by herself close neighbors check in often Review of Symptoms Constitutional: Reports: Weakness, Fatigue, Denies: Chills, Fever, Malaise, Night Sweats Eyes: Denies: Vision change, Conjunctivae inflammation ENT: Denies: Head Aches Skin: Reports: Lesions (right leg), Breakdown (ulcer right leg) Pulmonary: Denies: Dyspnea, Cough Cardiovascular: Denies: Chest Pain, Palpitations Gastrointestinal: Denies: Nausea, Vomiting, Abdominal Pain, Diarrhea, Constipation, Melena, Hematochezia Genitourinary: Denies: Dysuria Neurological: Reports: Weakness, Confusion, Denies: Numbness, Incoordination Psych: Reports: Other Psych (ams) Physical Examination General Exam: Positive: Cooperative, No Acute Distress, Negative: Alert (pt awakens to verbal stimuli but states she prefers to sleep as she is tired) Eye Exam: Positive: Conjunctiva & lids normal, EOMI, Negative: Sclera icteric, Ptosis ENT Exam: Positive: Atraumatic, Mucous membr. moist/pink, Pharynx Normal Neck Exam: Positive: Supple Chest Exam: Positive: Rhonchi, Diminished, Negative: Clear to auscultation Heart Exam: Positive: Irregular Rhythm, Normal S1, Normal S2, Negative: Gallops, Murmurs Telemetry: Positive: Atrial fibrillation Abdomen Exam: Positive: Normal bowel sounds, Soft, Negative: Tenderness, Hepatospenomegaly Extremity Exam: Positive: Cyanosis (left hand finger tips and toes cyanotic- raynaud), Swelling (+1 pitting b/l LE, ), Other (right extremity to mid rm, erythema, hot, 2 in by 1.5 in stage 1 ulcer on rm bone, minimal drainage of serous liquid), Negative: Clubbing Skin Exam: Positive: Breakdown Psych Exam: Positive: Other (very fatigued) Vital Signs Vital Signs Date Time Temp Pulse Resp B/P (MAP) Pulse Ox O2 Delivery O2 Flow Rate FiO2 04/24/17 22:30 118 97 04/24/17 20:45 127/85 (99) 04/24/17 15:27 97.7 18 Room Air Laboratory Data Labs 24H Laboratory Tests 2 04/24/17 16:33: White Blood Count 12.4H, Red Blood Count 4.58, Hemoglobin 15.9, Hematocrit 46.0 , Mean Corpuscular Volume 100.4H, Mean Corpuscular Hemoglobin 34.7H, Mean Corpuscular Hemoglobin Concent 34.6, Red Cell Distribution Width 12.8, Platelet Count 234, Neutrophils (%) (Auto) 92.0H, Lymphocytes (%) (Auto) 2.9L, Monocytes (%) (Auto) 3.9, Eosinophils (%) (Auto) 0.0, Basophils (%) (Auto) 0.1, Neutrophils # (Auto) 11.4H, Lymphocytes # (Auto) 0.4L, Monocytes # (Auto) 0.5, Eosinophils # (Auto) 0.0, Basophils # (Auto) 0.0, Large Unclassified Cells % 1.1 , Large Unclassified Cells # 0.1, Erythrocyte Sedimentation Rate 41, Prothrombin Time 18.4H, Prothromb Time International Ratio 1.49, Lactic Acid Level 1.9 04/24/17 18:24: Anion Gap 11, Glomerular Filtration Rate 27.1L, Calcium Level 9.5, Aspartate Amino Transf (AST/SGOT) 43H, Alanine Aminotransferase (ALT/SGPT) 43, Alkaline Phosphatase 97, Total Bilirubin 1.8H, Direct Bilirubin 0.4H, Total Creatine Kinase 157, Creatine Kinase MB 4.4H, Creatine Kinase MB Relative Index 2.80, Troponin I 0.66H, C-Reactive Protein, Quantitative 12.70H, Total Protein 7.4, Albumin 3.1L, Albumin/Globulin Ratio 0.72L CBC/BMP Laboratory Tests 04/24/17 16:33 Red Blood Count 4.58, Mean Corpuscular Volume 100.4 H, Mean Corpuscular Hemoglobin 34.7 H, Mean Corpuscular Hemoglobin Concent 34.6, Red Cell Distribution Width 12.8, Neutrophils (%) (Auto) 92.0 H, Lymphocytes (%) (Auto) 2.9 L, Monocytes (%) (Auto) 3.9, Eosinophils (%) (Auto) 0.0, Basophils (%) (Auto ) 0.1, Neutrophils # (Auto) 11.4 H, Lymphocytes # (Auto) 0.4 L, Monocytes # ( Auto) 0.5, Eosinophils # (Auto) 0.0, Basophils # (Auto) 0.0 04/24/17 18:24 Microbiology Microbiology 04/24/17 Blood Culture, Received Pending 04/24/17 Blood Culture, Received Pending Problems (1) Sepsis Status: Acute Response to Treatment: Stable Problem Text: HR 110-115 WBC 12.4 source likely ulcer on right rm blood culture, UA pending pt received vanco. in ED., will schedule Doxy (2) CHF (congestive heart failure) Permanent Comment: Echo 10/2016 1. Study is of fair technical quality. 2. Normal LV size with mild LVH, global hypokinesis and more pronounced hypokinesis of the septum and apex and overall EF estimated around 30-35%. 3. Aortic sclerosis but no significant stenosis. 4. At least moderate mitral insufficiency. 5. Moderate tricuspid insufficiency. 6. Unable to estimate central venous pressure. 7. At least mild pulmonary hypertension. Last Edited By: Nicole Rice NP on March 20, 2017 10:57 Status: Chronic Response to Treatment: Stable Problem Text: continue home diuretics (3) Atrial fibrillation Status: Chronic Response to Treatment: Stable Problem Text: continue home metoprolol (4) Septic encephalopathy Status: Acute Response to Treatment: Stable Problem Text: suspect will likely improve once infection improves continue to monitor (5) Cellulitis Status: Acute Response to Treatment: Stable Problem Text: IV doxy scheduled one dose of IV vanco in ED MSIR for pain control 7.5 mg (6) Hypertension Status: Chronic Response to Treatment: Stable Problem Text: continue home medications (7) Hypothyroid Status: Chronic Response to Treatment: Stable Problem Text: continue home mediation (8) DVT prophylaxis Status: Chronic Response to Treatment: Stable Problem Text: scd teds Plan / VTE VTE Prophylaxis Ordered?: Yes GME ATTESTATION GME ATTESTATION My preceptor for this patient encounter was physically present in the building during the encounter and was fully available. As needed, all aspects of the patient interview, examination, medical decision making process, and medical care plan development were reviewed and approved by the preceptor. Preceptor is aware and concurs with the plan as stated in the body of this note and will attest to such by his/her cosignature. ATTENDING NOTE Pt seen and examined by me. Findings and plan reviewed with resident. Resident note reviewed and agree with documented findings and plan. 1. Cellulitis with sepsis (leukocytosis, tachycardia, septic encephalopathy) Continue iv abx-changed from vanc to doxy-given pt's pcn allergy, doxy reasonable choice which also covers community acquired MRSA F/u wbc trend, fever curve, cx's Local care 2. HTN Continue bb 3. Chronic persistent afib Continue bb Continue eliquis 4. chronic systolic hf (30%) Continue bb Continue torsemide 5. hypothyroidism continue sythroid TSH nml (03/06) VIOLETTE PEÑA DO Apr 24, 2017 23:02 Chan Carvalho MD Apr 25, 2017 07:34
[2017-04-24] MEDS: METOPROLOL TART 50 MG TAB PO SCH (23:40)
[2017-04-24] MEDS: APIXABAN 2.5 MG TAB (ELIQUIS) PO SCH (23:40)
[2017-04-24] MEDS: traMADol 50 MG TAB PO SCH (23:41)
[2017-04-24 23:59] VITALS: BP 129/81
[2017-04-25] MEDS ORDERED: SLF 3 ML SYR IV PRN
[2017-04-25] MEDS: DOXYCYCLINE HYCLATE 100 MG in D5W MINI-BAG PLUS 100 ML IV SCH (02:14)
[2017-04-25] MEDS: NORTRIPTYLINE 25 MG CAP PO SCH ×3 (02:14→21:27)
[2017-04-25 04:00] VITALS: BP 164/74
[2017-04-25 05:03] LABS: LARGE UNSTAINED CELL # 0.1 K/mm3 (0.0-0.4); LARGE UNSTAINED CELL % 0.9 % (0.0-4.0); LYMPH # 0.5 K/mm3 (1.5-4.5); LYMPH % 3.6 % (24.0-44.0); MEAN CORPUSCULAR HGB CONC 34.5 g/dl (32.0-36.5); MEAN CORPUSCULAR VOLUME 98.5 fl (80.0-96.0); MONO # 0.4 K/mm3 (0.0-0.8); MONO % 3.4 % (0.0-5.0); NEUTROPHILS # 10.7 K/mm3 (1.8-7.7); PLATELET COUNT, AUTOMATED 201 k/mm3 (150-450); RED CELL DISTRIBUTION WIDTH 13.2 % (11.5-14.5); WHITE BLOOD COUNT 11.6 K/mm3 (4.0-10.0)
[2017-04-25 05:18] LABS: CREATININE FOR GFR 1.63 MG/DL (0.55-1.02); GLOMERULAR FILTRATION RATE 31.8 (>32)
[2017-04-25] MEDS: LEVOTHYROXINE 88MCG TABLET (0.088 MG) PO SCH (06:21)
[2017-04-25] MEDS: traMADol 50 MG TAB PO SCH ×3 (06:21→17:58)
[2017-04-25] MEDS: SLF 3 ML SYR IV SCH ×3 (06:21→21:29)
[2017-04-25] MEDS: FORMOTEROL FUMARATE 20 MCG/2 ML INHALATION SOLUTION (PERFOROMIST) INH SCH ×2 (07:31→20:51)
--- NOTE | 2017-04-25 07:41 | ECGEPIP ---
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
[2017-04-25 08:00] VITALS: BP 124/73
[2017-04-25] MEDS: DOCUSATE SODIUM 100 MG CAP PO SCH (09:10)
[2017-04-25] MEDS: APIXABAN 2.5 MG TAB (ELIQUIS) PO SCH ×2 (09:10→21:28)
[2017-04-25] MEDS: METOPROLOL TART 50 MG TAB PO SCH ×2 (09:11→21:28)
[2017-04-25] MEDS: TORSEMIDE 20 MG TAB PO SCH ×2 (09:11→16:57)
[2017-04-25] MEDS: NYSTATIN 100,000 UNITS/GM TOPICAL PWD 15 GM TOP SCH ×2 (09:11→21:28)
--- NOTE | 2017-04-25 12:20 | IPNPDOC ---
Subjective Date Seen The patient was seen on 04/25/17. Subjective Chief Complaint/HPI The patient is a 86-year-old female admitted with a reason for visit of Cellulitis. Events since last encounter Pt is working with PT. Daughter at bedside. Pt had had some confusion yesterday. Pt and daughter both state that the confusion has resolved and her mental status is back to baseline. Pt still with right lower extremity erythema and swelling. She states that it might be a little better compared to yesterday by the lines of demarkation drawn yesterday. She notes intermittent pain in the leg. Pt denies CP, SOB, Abd pain. Constitutional: Denies: Chills, Fever Pulmonary: Denies: Dyspnea Cardiovascular: Denies: Chest Pain Gastrointestinal: Denies: Nausea, Vomiting, Abdominal Pain Objective Physical Examination General Exam: Positive: Alert, Cooperative, No Acute Distress Eye Exam: Positive: Conjunctiva & lids normal, EOMI, Negative: Sclera icteric, Ptosis ENT Exam: Positive: Atraumatic, Mucous membr. moist/pink, Pharynx Normal Neck Exam: Positive: Supple Chest Exam: Positive: Rales, Diminished, Negative: Clear to auscultation Heart Exam: Positive: Irregular Rhythm, Normal S1, Normal S2, Negative: Gallops, Murmurs Telemetry: Positive: Atrial fibrillation Abdomen Exam: Positive: Normal bowel sounds, Soft, Negative: Tenderness, Hepatospenomegaly Extremity Exam: Positive: Cyanosis (left hand finger tips and toes cyanotic- raynaud), Swelling (+1 pitting b/l LE, R>L), Other (right extremity to mid rm , erythema, hot, 2 in by 1.5 in stage 1 ulcer on rm bone, minimal drainage of serous liquid. Within marked margins.), Negative: Clubbing Skin Exam: Positive: Breakdown Psych Exam: Positive: Mental status NL Assessment /Plan Problems (1) Sepsis Status: Acute Response to Treatment: Stable Problem Text: 04/25 - On IV Doxy. WBC 11.6 (12.4 yesterday). Afebrile. Blood cxs pending. Will send urine for cx. 04/24 - HR 110-115 WBC 12.4 source likely ulcer on right rm blood culture, UA pending pt received vanco. in ED., will schedule Doxy (2) Cellulitis Status: Acute Response to Treatment: Stable Problem Text: 04/25 - IV Doxy 04/24 - IV doxy scheduled one dose of IV vanco in ED MSIR for pain control 7.5 mg (3) Septic encephalopathy Status: Acute Response to Treatment: Improving Problem Text: 04/25 - Mental status improved to baseline per daughter and pt. 04/24 - suspect will likely improve once infection improves continue to monitor (4) CHF (congestive heart failure) Permanent Comment: Echo 10/2016 1. Study is of fair technical quality. 2. Normal LV size with mild LVH, global hypokinesis and more pronounced hypokinesis of the septum and apex and overall EF estimated around 30-35%. 3. Aortic sclerosis but no significant stenosis. 4. At least moderate mitral insufficiency. 5. Moderate tricuspid insufficiency. 6. Unable to estimate central venous pressure. 7. At least mild pulmonary hypertension. Last Edited By: Nicole Rice NP on March 20, 2017 10:57 Status: Chronic Response to Treatment: Stable Problem Text: 04/25 - On Torsemide 20 mg BID. Monitor fluid status. 04/24 - continue home diuretics (5) Atrial fibrillation Status: Chronic Response to Treatment: Stable Problem Text: 04/25 - On Lopressor 50 mg BID. 04/24 - continue home metoprolol (6) Hypertension Status: Chronic Response to Treatment: Stable Problem Text: continue home medications (7) Hypothyroid Status: Chronic Response to Treatment: Stable Problem Text: continue home mediation (8) DVT prophylaxis Status: Chronic Response to Treatment: Stable Problem Text: scd teds Plan/VTE VTE Prophylaxis Ordered?: Yes Plan Family Medicine Attending Note: I saw and examined Ms. Linda, discussed with YU Hansen. Agree with their note as documented. Her cellulitis is clearly within the marked limits which is good. Her mental status does seem to be restabilize, but we should be vigilant for hospital-acquired delirium. We'll continue her current regimen and monitor carefully. 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, Fishbone Vital Signs/I&O Vital Signs Date Time Temp Pulse Resp B/P (MAP) Pulse Ox O2 Delivery O2 Flow Rate FiO2 04/25/17 12:02 18 04/25/17 09:11 107 124/73 04/25/17 08:00 97.1 95 Room Air I&O- Last 24 Hours up to 6 AM 04/25/17 06:00 Intake Total 180 ml Output Total 0 ml Balance 180 ml Laboratory Data 24H LABS Laboratory Tests 2 04/24/17 16:33: White Blood Count 12.4H, Red Blood Count 4.58, Hemoglobin 15.9, Hematocrit 46.0 , Mean Corpuscular Volume 100.4H, Mean Corpuscular Hemoglobin 34.7H, Mean Corpuscular Hemoglobin Concent 34.6, Red Cell Distribution Width 12.8, Platelet Count 234, Neutrophils (%) (Auto) 92.0H, Lymphocytes (%) (Auto) 2.9L, Monocytes (%) (Auto) 3.9, Eosinophils (%) (Auto) 0.0, Basophils (%) (Auto) 0.1, Neutrophils # (Auto) 11.4H, Lymphocytes # (Auto) 0.4L, Monocytes # (Auto) 0.5, Eosinophils # (Auto) 0.0, Basophils # (Auto) 0.0, Large Unclassified Cells % 1.1 , Large Unclassified Cells # 0.1, Erythrocyte Sedimentation Rate 41, Prothrombin Time 18.4H, Prothromb Time International Ratio 1.49, Lactic Acid Level 1.9 04/24/17 18:24: Anion Gap 11, Glomerular Filtration Rate 27.1L, Calcium Level 9.5, Aspartate Amino Transf (AST/SGOT) 43H, Alanine Aminotransferase (ALT/SGPT) 43, Alkaline Phosphatase 97, Total Bilirubin 1.8H, Direct Bilirubin 0.4H, Total Creatine Kinase 157, Creatine Kinase MB 4.4H, Creatine Kinase MB Relative Index 2.80, Troponin I 0.66H, C-Reactive Protein, Quantitative 12.70H, Total Protein 7.4, Albumin 3.1L, Albumin/Globulin Ratio 0.72L 04/25/17 04:36: White Blood Count 11.6H, Red Blood Count 4.07, Hemoglobin 13.8#, Hematocrit 40.1 , Mean Corpuscular Volume 98.5H, Mean Corpuscular Hemoglobin 34.0H, Mean Corpuscular Hemoglobin Concent 34.5, Red Cell Distribution Width 13.2, Platelet Count 201, Neutrophils (%) (Auto) 92.0H, Lymphocytes (%) (Auto) 3.6L, Monocytes (%) (Auto) 3.4, Eosinophils (%) (Auto) 0.0, Basophils (%) (Auto) 0.0, Neutrophils # (Auto) 10.7H, Lymphocytes # (Auto) 0.5L, Monocytes # (Auto) 0.4, Eosinophils # (Auto) 0.0, Basophils # (Auto) 0.0, Large Unclassified Cells % 0.9 , Large Unclassified Cells # 0.1, Anion Gap 9, Glomerular Filtration Rate 31.8L , Calcium Level 9.0, Blood Urea Nitrogen 68H, Creatinine 1.63H, Sodium Level 136 , Potassium Level 4.0, Chloride Level 97L, Carbon Dioxide Level 30 04/25/17 11:07: Urine Appearance TURBIDH, Urine Color ADEBAYO, Urine pH 5.0, Urine Specific [place] 1.011, Urine Protein 2+H, Urine Glucose (UA) NEGATIVE, Urine Ketones NEGATIVE, Urine Urobilinogen 0.2, Urine Bilirubin NEGATIVE, Urine Leukocyte Esterase 3+H, Urine Blood 1+H, Urine Nitrite NEGATIVE, Urine WBC (Auto) TNTCH, Urine RBC (Auto) 18H, Urine Hyaline Casts (Auto) 0, Urine Bacteria (Auto) 2+H, Urine Squamous Epithelial Cells 3, Urine Sperm (Auto) CBC/BMP Laboratory Tests 04/24/17 16:33 Red Blood Count 4.58, Mean Corpuscular Volume 100.4 H, Mean Corpuscular Hemoglobin 34.7 H, Mean Corpuscular Hemoglobin Concent 34.6, Red Cell Distribution Width 12.8, Neutrophils (%) (Auto) 92.0 H, Lymphocytes (%) (Auto) 2.9 L, Monocytes (%) (Auto) 3.9, Eosinophils (%) (Auto) 0.0, Basophils (%) (Auto ) 0.1, Neutrophils # (Auto) 11.4 H, Lymphocytes # (Auto) 0.4 L, Monocytes # ( Auto) 0.5, Eosinophils # (Auto) 0.0, Basophils # (Auto) 0.0 04/24/17 18:24 04/25/17 04:36 Red Blood Count 4.07, Mean Corpuscular Volume 98.5 H, Mean Corpuscular Hemoglobin 34.0 H, Mean Corpuscular Hemoglobin Concent 34.5, Red Cell Distribution Width 13.2, Neutrophils (%) (Auto) 92.0 H, Lymphocytes (%) (Auto) 3.6 L, Monocytes (%) (Auto) 3.4, Eosinophils (%) (Auto) 0.0, Basophils (%) (Auto ) 0.0, Neutrophils # (Auto) 10.7 H, Lymphocytes # (Auto) 0.5 L, Monocytes # ( Auto) 0.4, Eosinophils # (Auto) 0.0, Basophils # (Auto) 0.0, Calcium Level 9.0 Microbiology Microbiology 04/24/17 Blood Culture, Received Pending 04/24/17 Blood Culture, Received Pending Renato Allen Apr 25, 2017 12:20 Conor Echeverria MD Apr 26, 2017 00:03
[2017-04-25 16:00] VITALS: BP 119/90
[2017-04-25 20:00] VITALS: BP 120/79
[2017-04-25] MEDS: MULTIVITAMINS/MINERALS THERAP 1 TAB PO SCH (21:27)
[2017-04-26] MEDS: DOXYCYCLINE HYCLATE 100 MG in D5W MINI-BAG PLUS 100 ML IV SCH (00:36)
[2017-04-26] MEDS: traMADol 50 MG TAB PO SCH ×4 (00:38→17:38)
[2017-04-26 04:00] VITALS: BP 121/91
[2017-04-26 05:31] LABS: BASO % 0.1 % (0.0-1.0); EOS % 0.2 % (0.0-3.0); LARGE UNSTAINED CELL # 0.1 K/mm3 (0.0-0.4); LYMPH # 0.6 K/mm3 (1.5-4.5); LYMPH % 4.5 % (24.0-44.0); MEAN CORPUSCULAR HEMOGLOBIN 34.1 pg (27.0-33.0); MEAN CORPUSCULAR HGB CONC 33.7 g/dl (32.0-36.5); MEAN CORPUSCULAR VOLUME 101.3 fl (80.0-96.0); MONO # 0.4 K/mm3 (0.0-0.8); MONO % 4.3 % (0.0-5.0); NEUTROPHILS # 9.1 K/mm3 (1.8-7.7); NEUTROPHILS % 89.8 % (36.0-66.0); PLATELET COUNT, AUTOMATED 208 k/mm3 (150-450); RED CELL DISTRIBUTION WIDTH 13.3 % (11.5-14.5); WHITE BLOOD COUNT 10.1 K/mm3 (4.0-10.0)
[2017-04-26] MEDS: LEVOTHYROXINE 88MCG TABLET (0.088 MG) PO SCH (05:44)
[2017-04-26] MEDS: SLF 3 ML SYR IV SCH ×3 (05:44→20:46)
[2017-04-26 05:45] LABS: CREATININE FOR GFR 1.95 MG/DL (0.55-1.02); GLOMERULAR FILTRATION RATE 25.8 (>32); POTASSIUM SERUM 4.6 MEQ/L (3.5-5.1)
[2017-04-26 06:10] LABS: ERYTHROCYTE SEDIMENTATION RATE 34 mm/hr (0-42)
[2017-04-26] MEDS: FORMOTEROL FUMARATE 20 MCG/2 ML INHALATION SOLUTION (PERFOROMIST) INH SCH ×2 (07:04→19:59)
[2017-04-26 08:00] VITALS: BP 117/94
[2017-04-26] MEDS: TORSEMIDE 20 MG TAB PO SCH ×2 (09:40→17:38)
[2017-04-26] MEDS: NORTRIPTYLINE 25 MG CAP PO SCH ×2 (09:40→20:44)
[2017-04-26] MEDS: APIXABAN 2.5 MG TAB (ELIQUIS) PO SCH ×2 (09:40→20:45)
[2017-04-26] MEDS: DOCUSATE SODIUM 100 MG CAP PO SCH (09:40)
[2017-04-26] MEDS: METOPROLOL TART 50 MG TAB PO SCH ×2 (09:40→20:45)
[2017-04-26] MEDS: NYSTATIN 100,000 UNITS/GM TOPICAL PWD 15 GM TOP SCH ×2 (09:41→20:45)
--- NOTE | 2017-04-26 10:45 | IPNPDOC ---
Subjective Date Seen The patient was seen on 04/26/17. Subjective Chief Complaint/HPI The patient is a 86-year-old female admitted with a reason for visit of Cellulitis. Events since last encounter RLE cellulitis with mild improvement. WBC improving. Daughter concerned about lethargy and confusion. Constitutional: Denies: Chills, Fever, Night Sweats ENT: Denies: Head Aches, Ear Pain, Dysphagia Skin: Denies: Rash, Lesions, Breakdown Pulmonary: Denies: Dyspnea, Cough Cardiovascular: Reports: Edema, Denies: Chest Pain, Palpitations, Orthopnea, Paroxysmal Noc. Dyspnea, Lt Headedness Gastrointestinal: Denies: Nausea, Vomiting, Abdominal Pain, Diarrhea, Constipation Genitourinary: Denies: Dysuria, Frequency, Incontinence, Retention Neurological: Reports: Weakness, Confusion Psych: Reports: Mood Normal, Denies: Depression, Memory Issues Objective Physical Examination General Exam: Positive: Alert, Cooperative, No Acute Distress, Other (lethargic , falling asleep during conversation. ) Eye Exam: Positive: Conjunctiva & lids normal, EOMI, Negative: Sclera icteric, Ptosis ENT Exam: Positive: Atraumatic, Mucous membr. moist/pink, Pharynx Normal Neck Exam: Positive: Supple Chest Exam: Positive: Rales, Diminished, Negative: Clear to auscultation Heart Exam: Positive: Irregular Rhythm, Normal S1, Normal S2, Negative: Gallops, Murmurs Telemetry: Positive: Atrial fibrillation Abdomen Exam: Positive: Normal bowel sounds, Soft, Negative: Tenderness, Hepatospenomegaly Extremity Exam: Positive: Cyanosis (left hand finger tips and toes cyanotic- raynaud), Swelling (+1 pitting b/l LE, R>L), Other (right extremity to mid rm , erythema, hot, 2 in by 1.5 in stage 1 ulcer on rm bone, minimal drainage of serous liquid. Now receding from the marked margins.), Negative: Clubbing Skin Exam: Positive: Breakdown Psych Exam: Positive: Mental status NL Assessment /Plan Problems (1) Cellulitis Status: Acute Response to Treatment: Stable Problem Text: 04/26/17: chaneg to po doxy 04/25 - IV Doxy 04/24 - IV doxy scheduled one dose of IV vanco in ED MSIR for pain control 7.5 mg (2) Hyponatremia Problem Text: Current sodium level is 133. Baseline is 140. may be related to infectious process. Fluid Restriction decreased to 1200 ml. Regular diet. monitor levels. (3) Septic encephalopathy Status: Acute Response to Treatment: Improving Problem Text: 04/26/17: lethargy and fatigue noted. may be related to hyponatremia. 04/25 - Mental status improved to baseline per daughter and pt. 04/24 - suspect will likely improve once infection improves continue to monitor (4) Sepsis Status: Resolved Response to Treatment: Stable Problem Text: 04/26/17: will mold changer to po doxycycline. WBC 10,000. Bl Cx. negative. urine cx pending. 04/25 - On IV Doxy. WBC 11.6 (12.4 yesterday). Afebrile. Blood cxs pending. Will send urine for cx. 04/24 - HR 110-115 WBC 12.4 source likely ulcer on right rm blood culture, UA pending pt received vanco. in ED., will schedule Doxy (5) CHF (congestive heart failure) Permanent Comment: Echo 10/2016 1. Study is of fair technical quality. 2. Normal LV size with mild LVH, global hypokinesis and more pronounced hypokinesis of the septum and apex and overall EF estimated around 30-35%. 3. Aortic sclerosis but no significant stenosis. 4. At least moderate mitral insufficiency. 5. Moderate tricuspid insufficiency. 6. Unable to estimate central venous pressure. 7. At least mild pulmonary hypertension. Last Edited By: Nicole Rice NP on March 20, 2017 10:57 Status: Chronic Response to Treatment: Stable Problem Text: On Torsemide 20 mg BID. Monitor fluid status. (6) Atrial fibrillation Status: Chronic Response to Treatment: Stable Problem Text: 04/25 - On Lopressor 50 mg BID. 04/24 - continue home metoprolol (7) Hypertension Status: Chronic Response to Treatment: Stable Problem Text: continue home medications (8) Hypothyroid Status: Chronic Response to Treatment: Stable Problem Text: continue home mediation (9) DVT prophylaxis Status: Chronic Response to Treatment: Stable Problem Text: scd teds Plan/VTE VTE Prophylaxis Ordered?: Yes Plan Family Medicine Attending Note: I saw and examined Ms. Linda, discussed with LUPILLO Mckeon. Agree with their note as documented. She seems to making slow progress on her cellulitis. I'm not sure if her confusion is related to the hospital environment, fluctuations in her electrolytes, or infectious process. It is not severe. We'll monitor carefully. 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, 24H, Fishbone Vital Signs/I&O Vital Signs Date Time Temp Pulse Resp B/P (MAP) Pulse Ox O2 Delivery O2 Flow Rate FiO2 04/26/17 09:40 98 117/94 04/26/17 08:00 97.7 18 98 Room Air I&O- Last 24 Hours up to 6 AM 04/26/17 06:00 Intake Total 500 ml Output Total 450 ml Balance 50 ml Laboratory Data 24H LABS Laboratory Tests 2 04/25/17 11:07: Urine Appearance TURBIDH, Urine Color ADEBAYO, Urine pH 5.0, Urine Specific [place] 1.011, Urine Protein 2+H, Urine Glucose (UA) NEGATIVE, Urine Ketones NEGATIVE, Urine Urobilinogen 0.2, Urine Bilirubin NEGATIVE, Urine Leukocyte Esterase 3+H, Urine Blood 1+H, Urine Nitrite NEGATIVE, Urine WBC (Auto) TNTCH, Urine RBC (Auto) 18H, Urine Hyaline Casts (Auto) 0, Urine Bacteria (Auto) 2+H, Urine Squamous Epithelial Cells 3, Urine Sperm (Auto) 04/26/17 04:57: White Blood Count 10.1H, Red Blood Count 4.31, Hemoglobin 14.7, Hematocrit 43.7 , Mean Corpuscular Volume 101.3H, Mean Corpuscular Hemoglobin 34.1H, Mean Corpuscular Hemoglobin Concent 33.7, Red Cell Distribution Width 13.3, Platelet Count 208, Neutrophils (%) (Auto) 89.8H, Lymphocytes (%) (Auto) 4.5L, Monocytes (%) (Auto) 4.3, Eosinophils (%) (Auto) 0.2, Basophils (%) (Auto) 0.1, Neutrophils # (Auto) 9.1H, Lymphocytes # (Auto) 0.6L, Monocytes # (Auto) 0.4, Eosinophils # (Auto) 0.0, Basophils # (Auto) 0.0, Large Unclassified Cells % 1.0 , Large Unclassified Cells # 0.1, Erythrocyte Sedimentation Rate 34, Anion Gap 10, Glomerular Filtration Rate 25.8L, Blood Urea Nitrogen 78H, Creatinine 1.95H , Sodium Level 133L, Potassium Level 4.6, Chloride Level 94L, Carbon Dioxide Level 29, Calcium Level 9.0, C-Reactive Protein, Quantitative 20.70H CBC/BMP Laboratory Tests 04/26/17 04:57 Red Blood Count 4.31, Mean Corpuscular Volume 101.3 H, Mean Corpuscular Hemoglobin 34.1 H, Mean Corpuscular Hemoglobin Concent 33.7, Red Cell Distribution Width 13.3, Neutrophils (%) (Auto) 89.8 H, Lymphocytes (%) (Auto) 4.5 L, Monocytes (%) (Auto) 4.3, Eosinophils (%) (Auto) 0.2, Basophils (%) (Auto ) 0.1, Neutrophils # (Auto) 9.1 H, Lymphocytes # (Auto) 0.6 L, Monocytes # (Auto ) 0.4, Eosinophils # (Auto) 0.0, Basophils # (Auto) 0.0, Calcium Level 9.0 Microbiology Microbiology 04/24/17 Blood Culture - Preliminary, Resulted No growth after 24 hours . All specim... 04/24/17 Blood Culture - Preliminary, Resulted No growth after 24 hours . All specim... 04/25/17 Urine Culture, Received Pending Nicole Rice Apr 26, 2017 10:44 Conor Echeverria MD Apr 26, 2017 20:51
[2017-04-26 15:30] VITALS: BP 120/64
[2017-04-26 20:00] VITALS: BP_SYST 110; BP_SYST 121; BP_DIAS 59; BP_DIAS 85
[2017-04-26] MEDS: MULTIVITAMINS/MINERALS THERAP 1 TAB PO SCH (20:45)
[2017-04-27] MEDS: DOXYCYCLINE HYCLATE 100 MG in D5W MINI-BAG PLUS 100 ML IV SCH (00:13)
[2017-04-27] MEDS: traMADol 50 MG TAB PO SCH ×5 (00:14→23:23)
[2017-04-27 03:07] VITALS: BP 111/80
[2017-04-27 05:08] LABS: BASO % 0.1 % (0.0-1.0); EOS % 0.4 % (0.0-3.0); LARGE UNSTAINED CELL # 0.2 K/mm3 (0.0-0.4); LARGE UNSTAINED CELL % 1.6 % (0.0-4.0); LYMPH # 0.7 K/mm3 (1.5-4.5); LYMPH % 4.2 % (24.0-44.0); MEAN CORPUSCULAR HEMOGLOBIN 34.4 pg (27.0-33.0); MEAN CORPUSCULAR HGB CONC 34.1 g/dl (32.0-36.5); MEAN CORPUSCULAR VOLUME 100.9 fl (80.0-96.0); MONO # 0.6 K/mm3 (0.0-0.8); MONO % 5.1 % (0.0-5.0); NEUTROPHILS % 88.6 % (36.0-66.0); PLATELET COUNT, AUTOMATED 205 k/mm3 (150-450); RED CELL DISTRIBUTION WIDTH 13.3 % (11.5-14.5); WHITE BLOOD COUNT 12.5 K/mm3 (4.0-10.0)
[2017-04-27 05:21] LABS: CALCIUM LEVEL 8.9 MG/DL (8.8-10.2); CREATININE FOR GFR 1.73 MG/DL (0.55-1.02); GLOMERULAR FILTRATION RATE 29.7 (>32)
[2017-04-27] MEDS: LEVOTHYROXINE 88MCG TABLET (0.088 MG) PO SCH (06:00)
[2017-04-27] MEDS: SLF 3 ML SYR IV SCH ×3 (06:00→21:24)
[2017-04-27] MEDS: FORMOTEROL FUMARATE 20 MCG/2 ML INHALATION SOLUTION (PERFOROMIST) INH SCH ×2 (07:32→20:28)
[2017-04-27 07:48] VITALS: BP 112/79
--- NOTE | 2017-04-27 08:30 | IPNPDOC ---
Subjective Date Seen The patient was seen on 04/27/17. Subjective Chief Complaint/HPI The patient is a 86-year-old female admitted with a reason for visit of Cellulitis. ENT: Denies: Head Aches Pulmonary: Denies: Dyspnea, Pleuritic Chest Pain Cardiovascular: Denies: Chest Pain, Orthopnea Gastrointestinal: Denies: Nausea, Vomiting, Abdominal Pain Genitourinary: Reports: Other Symptoms (denies flank pain or suprapubic discomfort) Objective Physical Examination General Exam: Positive: Alert, Cooperative, No Acute Distress, Other (lethargic , falling asleep during conversation. ) Eye Exam: Positive: Conjunctiva & lids normal, EOMI, Negative: Sclera icteric, Ptosis ENT Exam: Positive: Atraumatic, Mucous membr. moist/pink, Pharynx Normal Neck Exam: Positive: Supple Chest Exam: Positive: Rales, Diminished, Negative: Clear to auscultation Heart Exam: Positive: Irregular Rhythm, Normal S1, Normal S2, Negative: Gallops, Murmurs Telemetry: Positive: Atrial fibrillation Abdomen Exam: Positive: Normal bowel sounds, Soft, Negative: Tenderness, Hepatospenomegaly Extremity Exam: Positive: Cyanosis (left hand finger tips and toes cyanotic- raynaud), Swelling (Erythematous zone is smaller Stage 2 ulcers on skin of lower right rm), Other, Negative: Clubbing Skin Exam: Positive: Breakdown, Lesion (superficial ulcerations on skin overlying right lower rm (pointedly there is no ulcer of her "rm bone") the previously demarcated zone of erythema seems to be smaller than previously indicated by indelible marker line.) Psych Exam: Positive: Mental status NL Assessment /Plan Problems (1) Cellulitis Status: Acute Response to Treatment: Stable Problem Text: 04/27/17. based on size of erythema, things seem to be improving. no cultures available. C reactive protein is still elevated and climbing. blood cultures were negative. 04/26/17: change to po doxy 04/25 - IV Doxy 04/24 - IV doxy scheduled one dose of IV vanco in ED MSIR for pain control 7.5 mg (2) Hyponatremia Problem Text: 04/27/17: today her sodium is 138, will continue to monitor. if stable then can liberalize fluid intake. Current sodium level is 133. Baseline is 140. may be related to infectious process. Fluid Restriction decreased to 1200 ml. Regular diet. monitor levels. (3) Septic encephalopathy Status: Acute Response to Treatment: Improving Problem Text: 04/26/17: lethargy and fatigue noted. may be related to hyponatremia. 04/25 - Mental status improved to baseline per daughter and pt. 04/24 - suspect will likely improve once infection improves continue to monitor (4) Sepsis Status: Resolved Response to Treatment: Stable Problem Text: 04/27/17: urine showed significant leukocyte burden suggestive of UTI. not exactly "asymptomatic bactiuria" if we have signs of encephalopathy. The doxycycline which appears to be improving the skin problem will not likely be effective for a urinary infection due to poor urinary penetration of this agent. Tetracycline would be better for this purpose but is generally not available. Culture of urine is pending at this time. The nature of her allergy to penicillin needs to be better understood so that use of a beta lactam agent might be considered if needed after culture is available. 04/26/17: will oil changer to po doxycycline. WBC 10,000. Bl Cx. negative. urine cx pending. 04/25 - On IV Doxy. WBC 11.6 (12.4 yesterday). Afebrile. Blood cxs pending. Will send urine for cx. 04/24 - HR 110-115 WBC 12.4 source likely ulcer on right rm blood culture, UA pending pt received vanco. in ED., will schedule Doxy (5) CHF (congestive heart failure) Permanent Comment: Echo 10/2016 1. Study is of fair technical quality. 2. Normal LV size with mild LVH, global hypokinesis and more pronounced hypokinesis of the septum and apex and overall EF estimated around 30-35%. 3. Aortic sclerosis but no significant stenosis. 4. At least moderate mitral insufficiency. 5. Moderate tricuspid insufficiency. 6. Unable to estimate central venous pressure. 7. At least mild pulmonary hypertension. Last Edited By: Nicole Rice NP on March 20, 2017 10:57 Status: Chronic Response to Treatment: Stable Problem Text: On Torsemide 20 mg BID. Monitor fluid status. (6) Atrial fibrillation Status: Chronic Response to Treatment: Stable Problem Text: 04/25 - On Lopressor 50 mg BID. 04/24 - continue home metoprolol (7) Hypertension Status: Chronic Response to Treatment: Stable Problem Text: continue home medications (8) Hypothyroid Status: Chronic Response to Treatment: Stable Problem Text: continue home mediation (9) DVT prophylaxis Status: Chronic Response to Treatment: Stable Problem Text: scd teds (10) Chronic kidney disease, stage 4 (severe) Status: Chronic Response to Treatment: Stable Problem Text: Calculated clearance of 19.7 based on labs of 04/27/17 with creatinine 1.73 Plan/VTE VTE Prophylaxis Ordered?: Yes Plan Diet: Continue Current Diagnostics: Check Labs VS, I&O, 24H, Fishbone Vital Signs/I&O Vital Signs Date Time Temp Pulse Resp B/P (MAP) Pulse Ox O2 Delivery O2 Flow Rate FiO2 04/27/17 07:48 97.7 67 18 112/79 (90) 97 Nasal Cannula 3.0 I&O- Last 24 Hours up to 6 AM 04/27/17 06:00 Intake Total 1300 ml Output Total 1000 ml Balance 300 ml Laboratory Data 24H LABS Laboratory Tests 2 04/27/17 02:47: Urine Appearance HAZY, Urine Color YELLOW, Urine pH 5.0, Urine Specific [place] 1.010, Urine Protein NEGATIVE, Urine Glucose (UA) NEGATIVE, Urine Ketones NEGATIVE, Urine Urobilinogen 0.2, Urine Bilirubin NEGATIVE, Urine Leukocyte Esterase 3+H, Urine Blood NEGATIVE, Urine Nitrite NEGATIVE, Urine WBC (Auto) 62H , Urine RBC (Auto) 6H, Urine Hyaline Casts (Auto) 0, Urine Bacteria (Auto) 1+H, Urine Squamous Epithelial Cells 0, Urine Sperm (Auto) 04/27/17 04:40: White Blood Count 12.5H, Red Blood Count 4.21, Hemoglobin 14.5, Hematocrit 42.5 , Mean Corpuscular Volume 100.9H, Mean Corpuscular Hemoglobin 34.4H, Mean Corpuscular Hemoglobin Concent 34.1, Red Cell Distribution Width 13.3, Platelet Count 205, Neutrophils (%) (Auto) 88.6H, Lymphocytes (%) (Auto) 4.2L, Monocytes (%) (Auto) 5.1H, Eosinophils (%) (Auto) 0.4, Basophils (%) (Auto) 0.1, Neutrophils # (Auto) 11.0H, Lymphocytes # (Auto) 0.7L, Monocytes # (Auto) 0.6, Eosinophils # (Auto) 0.0, Basophils # (Auto) 0.0, Large Unclassified Cells % 1.6 , Large Unclassified Cells # 0.2, Anion Gap 10, Glomerular Filtration Rate 29.7L , Blood Urea Nitrogen 81H, Creatinine 1.73H, Sodium Level 138, Potassium Level 4.0, Chloride Level 100, Carbon Dioxide Level 28, Calcium Level 8.9 CBC/BMP Laboratory Tests 04/27/17 04:40 Red Blood Count 4.21, Mean Corpuscular Volume 100.9 H, Mean Corpuscular Hemoglobin 34.4 H, Mean Corpuscular Hemoglobin Concent 34.1, Red Cell Distribution Width 13.3, Neutrophils (%) (Auto) 88.6 H, Lymphocytes (%) (Auto) 4.2 L, Monocytes (%) (Auto) 5.1 H, Eosinophils (%) (Auto) 0.4, Basophils (%) ( Auto) 0.1, Neutrophils # (Auto) 11.0 H, Lymphocytes # (Auto) 0.7 L, Monocytes # (Auto) 0.6, Eosinophils # (Auto) 0.0, Basophils # (Auto) 0.0, Calcium Level 8.9 Microbiology Microbiology 04/24/17 Blood Culture - Preliminary, Resulted No Growth after 48 hours. All Specime... 04/24/17 Blood Culture - Preliminary, Resulted No Growth after 48 hours. All Specime... 04/27/17 Urine Culture, Received Pending 04/25/17 Urine Culture, Received Pending Sarwat Ibarra MD Apr 27, 2017 08:30
[2017-04-27] MEDS: NYSTATIN 100,000 UNITS/GM TOPICAL PWD 15 GM TOP SCH ×2 (09:00→21:31)
[2017-04-27] MEDS: APIXABAN 2.5 MG TAB (ELIQUIS) PO SCH ×2 (09:23→21:23)
[2017-04-27] MEDS: DOCUSATE SODIUM 100 MG CAP PO SCH (09:23)
[2017-04-27] MEDS: METOPROLOL TART 50 MG TAB PO SCH ×2 (09:23→21:23)
[2017-04-27] MEDS: NORTRIPTYLINE 25 MG CAP PO SCH ×2 (09:23→21:23)
[2017-04-27] MEDS: TORSEMIDE 20 MG TAB PO SCH ×2 (09:23→18:05)
[2017-04-27 16:00] VITALS: BP 135/101
[2017-04-27 20:00] VITALS: BP 128/79
[2017-04-27 21:19] VITALS: BP 108/72
[2017-04-27] MEDS: DOXYCYCLINE HYCLATE 100 MG TAB PO SCH (21:21)
[2017-04-27] MEDS: MULTIVITAMINS/MINERALS THERAP 1 TAB PO SCH (21:23)
[2017-04-27 23:59] VITALS: BP 115/77
[2017-04-28] MEDS: traMADol 50 MG TAB PO SCH (05:16)
[2017-04-28] MEDS: SLF 3 ML SYR IV SCH ×3 (05:19→21:30)
[2017-04-28] MEDS: LEVOTHYROXINE 88MCG TABLET (0.088 MG) PO SCH (05:19)
[2017-04-28 05:34] LABS: BASO % 0.1 % (0.0-1.0); EOS % 0.4 % (0.0-3.0); LARGE UNSTAINED CELL # 0.1 K/mm3 (0.0-0.4); LYMPH # 0.8 K/mm3 (1.5-4.5); LYMPH % 6.1 % (24.0-44.0); MEAN CORPUSCULAR HEMOGLOBIN 34.4 pg (27.0-33.0); MEAN CORPUSCULAR HGB CONC 34.3 g/dl (32.0-36.5); MEAN CORPUSCULAR VOLUME 100.5 fl (80.0-96.0); MONO # 0.6 K/mm3 (0.0-0.8); MONO % 4.8 % (0.0-5.0); NEUTROPHILS % 87.6 % (36.0-66.0); PLATELET COUNT, AUTOMATED 229 k/mm3 (150-450); RED CELL DISTRIBUTION WIDTH 13.3 % (11.5-14.5); WHITE BLOOD COUNT 11.4 K/mm3 (4.0-10.0)
[2017-04-28 05:53] LABS: CALCIUM LEVEL 9.4 MG/DL (8.8-10.2); CREATININE FOR GFR 2.11 MG/DL (0.55-1.02); GLOMERULAR FILTRATION RATE 23.6 (>32); POTASSIUM SERUM 4.6 MEQ/L (3.5-5.1)
[2017-04-28] MEDS: FORMOTEROL FUMARATE 20 MCG/2 ML INHALATION SOLUTION (PERFOROMIST) INH SCH ×2 (07:31→19:34)
[2017-04-28 08:00] VITALS: BP 140/102
[2017-04-28] MEDS: TORSEMIDE 20 MG TAB PO SCH (08:59)
[2017-04-28] MEDS: APIXABAN 2.5 MG TAB (ELIQUIS) PO SCH ×2 (08:59→21:29)
[2017-04-28] MEDS: DOCUSATE SODIUM 100 MG CAP PO SCH (08:59)
[2017-04-28] MEDS: NORTRIPTYLINE 25 MG CAP PO SCH ×2 (08:59→21:28)
[2017-04-28] MEDS: DOXYCYCLINE HYCLATE 100 MG TAB PO SCH ×2 (08:59→21:28)
[2017-04-28] MEDS: METOPROLOL TART 50 MG TAB PO SCH ×2 (09:00→21:29)
[2017-04-28] MEDS: NYSTATIN 100,000 UNITS/GM TOPICAL PWD 15 GM TOP SCH ×2 (09:04→21:30)
[2017-04-28] MEDS: CIPROFLOXACIN 500 MG TAB PO SCH (11:44)
--- NOTE | 2017-04-28 13:46 | IPNPDOC ---
Subjective Date Seen The patient was seen on 04/28/17. Subjective Chief Complaint/HPI The patient is a 86-year-old female admitted with a reason for visit of Cellulitis. General: Denies: Chills ENT: Denies: Head Aches Pulmonary: Denies: Dyspnea, Cough Cardiovascular: Denies: Chest Pain Gastrointestinal: Denies: Nausea, Vomiting, Abdominal Pain Objective Physical Examination General Exam: Positive: Alert, Cooperative, No Acute Distress, Other (lethargic , falling asleep during conversation. ) Eye Exam: Positive: Conjunctiva & lids normal, EOMI, Negative: Sclera icteric, Ptosis ENT Exam: Positive: Atraumatic, Mucous membr. moist/pink, Pharynx Normal Neck Exam: Positive: Supple Chest Exam: Positive: Rales, Diminished, Negative: Clear to auscultation Heart Exam: Positive: Irregular Rhythm, Normal S1, Normal S2, Negative: Gallops, Murmurs Telemetry: Positive: Atrial fibrillation Abdomen Exam: Positive: Normal bowel sounds, Soft, Negative: Tenderness, Hepatospenomegaly Extremity Exam: Positive: Cyanosis (left hand finger tips and toes cyanotic- raynaud), Swelling (Erythematous zone is smaller Stage 2 ulcers on skin of lower right rm), Other, Negative: Clubbing Skin Exam: Positive: Breakdown, Lesion (area of redness unchanged from 04/27/17. ulcer on medial lower leg unchanged. no significant drainage visible.) Psych Exam: Positive: Mental status NL (family feels she isn't quite as sharp as usual and occasionally confused.) Assessment /Plan Problems (1) Cellulitis Status: Acute Response to Treatment: Stable Problem Text: 04/27/17. based on size of erythema, things seem to be improving. no cultures available. C reactive protein is still elevated and climbing. blood cultures were negative. 04/26/17: change to po doxy 04/25 - IV Doxy 04/24 - IV doxy scheduled one dose of IV vanco in ED MSIR for pain control 7.5 mg (2) Hyponatremia Problem Text: 04/27/17: today her sodium is 138, will continue to monitor. if stable then can liberalize fluid intake. Current sodium level is 133. Baseline is 140. may be related to infectious process. Fluid Restriction decreased to 1200 ml. Regular diet. monitor levels. (3) Septic encephalopathy Status: Acute Response to Treatment: Improving Problem Text: 04/26/17: lethargy and fatigue noted. may be related to hyponatremia. 04/25 - Mental status improved to baseline per daughter and pt. 04/24 - suspect will likely improve once infection improves continue to monitor (4) Sepsis Status: Resolved Response to Treatment: Stable Problem Text: 04/28/17 cipro started 500mg every 18 hours. if increase confusion , hallucinations occur, etc then reduce to 250mg every 18 hours. when ready for discharge reduce to every 24 hours for easier administration at home. 04/27/17: urine showed significant leukocyte burden suggestive of UTI. not exactly "asymptomatic bactiuria" if we have signs of encephalopathy. The doxycycline which appears to be improving the skin problem will not likely be effective for a urinary infection due to poor urinary penetration of this agent. Tetracycline would be better for this purpose but is generally not available. Culture of urine is pending at this time. The nature of her allergy to penicillin needs to be better understood so that use of a beta lactam agent might be considered if needed after culture is available. 04/26/17: will foreign exchange student coordinator to po doxycycline. WBC 10,000. Bl Cx. negative. urine cx pending. 04/25 - On IV Doxy. WBC 11.6 (12.4 yesterday). Afebrile. Blood cxs pending. Will send urine for cx. 04/24 - HR 110-115 WBC 12.4 source likely ulcer on right rm blood culture, UA pending pt received vanco. in ED., will schedule Doxy (5) CHF (congestive heart failure) Permanent Comment: Echo 10/2016 1. Study is of fair technical quality. 2. Normal LV size with mild LVH, global hypokinesis and more pronounced hypokinesis of the septum and apex and overall EF estimated around 30-35%. 3. Aortic sclerosis but no significant stenosis. 4. At least moderate mitral insufficiency. 5. Moderate tricuspid insufficiency. 6. Unable to estimate central venous pressure. 7. At least mild pulmonary hypertension. Last Edited By: Nicole Rice NP on March 20, 2017 10:57 Status: Chronic Response to Treatment: Stable Problem Text: 04/28/17 torsemide held due to rising creatinine. amlodipine added at 2.5 due to elevated pressures. On Torsemide 20 mg BID. Monitor fluid status. (6) Atrial fibrillation Status: Chronic Response to Treatment: Stable Problem Text: 04/25 - On Lopressor 50 mg BID. 04/24 - continue home metoprolol (7) Hypertension Status: Chronic Response to Treatment: Stable Problem Text: continue home medications (8) Hypothyroid Status: Chronic Response to Treatment: Stable Problem Text: continue home mediation (9) DVT prophylaxis Status: Chronic Response to Treatment: Stable Problem Text: scd teds (10) Chronic kidney disease, stage 4 (severe) Status: Chronic Response to Treatment: Stable Problem Text: 04/28/17: creatinine climbing so hold torsemide for now. 04/27/17:Calculated clearance of 19.7 based on labs of 04/27/17 with creatinine 1.73 Plan/VTE VTE Prophylaxis Ordered?: Yes Plan Diet: Continue Current Diagnostics: Check Labs VS, I&O, 24H, Fishbone Vital Signs/I&O Vital Signs Date Time Temp Pulse Resp B/P (MAP) Pulse Ox O2 Delivery O2 Flow Rate FiO2 04/28/17 11:44 70 122/72 04/28/17 08:06 Room Air 04/28/17 08:00 96.4 18 93 04/27/17 23:59 I&O- Last 24 Hours up to 6 AM 04/28/17 06:00 Intake Total 480 ml Output Total 800 ml Balance -320 ml Laboratory Data 24H LABS Laboratory Tests 2 04/28/17 05:19: White Blood Count 11.4H, Red Blood Count 4.45, Hemoglobin 15.3, Hematocrit 44.8 , Mean Corpuscular Volume 100.5H, Mean Corpuscular Hemoglobin 34.4H, Mean Corpuscular Hemoglobin Concent 34.3, Red Cell Distribution Width 13.3, Platelet Count 229, Neutrophils (%) (Auto) 87.6H, Lymphocytes (%) (Auto) 6.1L, Monocytes (%) (Auto) 4.8, Eosinophils (%) (Auto) 0.4, Basophils (%) (Auto) 0.1, Neutrophils # (Auto) 10.0H, Lymphocytes # (Auto) 0.8L, Monocytes # (Auto) 0.6, Eosinophils # (Auto) 0.0, Basophils # (Auto) 0.0, Large Unclassified Cells % 1.0 , Large Unclassified Cells # 0.1, Anion Gap 10, Glomerular Filtration Rate 23.6L , Blood Urea Nitrogen 96H, Creatinine 2.11H, Sodium Level 135L, Potassium Level 4.6, Chloride Level 96L, Carbon Dioxide Level 29, Calcium Level 9.4 CBC/BMP Laboratory Tests 04/28/17 05:19 Red Blood Count 4.45, Mean Corpuscular Volume 100.5 H, Mean Corpuscular Hemoglobin 34.4 H, Mean Corpuscular Hemoglobin Concent 34.3, Red Cell Distribution Width 13.3, Neutrophils (%) (Auto) 87.6 H, Lymphocytes (%) (Auto) 6.1 L, Monocytes (%) (Auto) 4.8, Eosinophils (%) (Auto) 0.4, Basophils (%) (Auto ) 0.1, Neutrophils # (Auto) 10.0 H, Lymphocytes # (Auto) 0.8 L, Monocytes # ( Auto) 0.6, Eosinophils # (Auto) 0.0, Basophils # (Auto) 0.0, Calcium Level 9.4 Microbiology Microbiology 04/24/17 Blood Culture - Preliminary, Resulted No Growth after 72 hours. All specime... 04/24/17 Blood Culture - Preliminary, Resulted No Growth after 72 hours. All specime... 04/27/17 Urine Culture, Received Pending 04/25/17 Urine Culture - Final, Complete Enterococcus Faecium Sarwat Ibarra MD Apr 28, 2017 13:46
[2017-04-28 16:00] VITALS: BP 125/92
[2017-04-28 17:30] VITALS: BP 125/89
[2017-04-28] MEDS: MULTIVITAMINS/MINERALS THERAP 1 TAB PO SCH (21:29)
[2017-04-28 22:00] VITALS: BP 120/90
[2017-04-29] MEDS: LEVOTHYROXINE 88MCG TABLET (0.088 MG) PO SCH (05:34)
[2017-04-29] MEDS: SLF 3 ML SYR IV SCH ×3 (05:34→21:13)
[2017-04-29] MEDS: CIPROFLOXACIN 500 MG TAB PO SCH (05:34)
[2017-04-29 06:00] VITALS: BP 122/76
[2017-04-29 06:04] LABS: BASO % 0.1 % (0.0-1.0); EOS % 0.6 % (0.0-3.0); LARGE UNSTAINED CELL # 0.1 K/mm3 (0.0-0.4); LARGE UNSTAINED CELL % 1.1 % (0.0-4.0); LYMPH # 0.7 K/mm3 (1.5-4.5); LYMPH % 6.2 % (24.0-44.0); MEAN CORPUSCULAR HEMOGLOBIN 34.1 pg (27.0-33.0); MEAN CORPUSCULAR HGB CONC 33.7 g/dl (32.0-36.5); MONO # 0.6 K/mm3 (0.0-0.8); MONO % 6.4 % (0.0-5.0); NEUTROPHILS # 7.8 K/mm3 (1.8-7.7); NEUTROPHILS % 85.5 % (36.0-66.0); PLATELET COUNT, AUTOMATED 213 k/mm3 (150-450); RED CELL DISTRIBUTION WIDTH 13.5 % (11.5-14.5); WHITE BLOOD COUNT 9.1 K/mm3 (4.0-10.0)
[2017-04-29 06:10] LABS: CALCIUM LEVEL 8.6 MG/DL (8.8-10.2); CREATININE FOR GFR 1.85 MG/DL (0.55-1.02); GLOMERULAR FILTRATION RATE 27.5 (>32); POTASSIUM SERUM 3.6 MEQ/L (3.5-5.1)
[2017-04-29] MEDS: FORMOTEROL FUMARATE 20 MCG/2 ML INHALATION SOLUTION (PERFOROMIST) INH SCH ×2 (07:06→19:50)
--- NOTE | 2017-04-29 10:38 | IPNPDOC ---
Subjective Date Seen The patient was seen on 04/29/17. Subjective Chief Complaint/HPI The patient is a 86-year-old female admitted with a reason for visit of Cellulitis. Events since last encounter Pt's dgt Kristina is at bedside. Notes that pt is notably weaker and unstable than prior to admission. She had been living at home alone. Supportive family/ friends. General: Denies: Fatigue Constitutional: Denies: Chills, Fever Pulmonary: Denies: Dyspnea, Cough Cardiovascular: Denies: Chest Pain, Palpitations Gastrointestinal: Denies: Nausea, Vomiting, Diarrhea Neurological: Denies: Weakness Psych: Reports: Mood Normal Objective Physical Examination General Exam: Positive: Cooperative, No Acute Distress, Other (lethargic, falling asleep during conversation. ), Negative: Alert Eye Exam: Positive: Conjunctiva & lids normal, EOMI, Negative: Sclera icteric, Ptosis ENT Exam: Positive: Mucous membr. moist/pink, Pharynx Normal Neck Exam: Positive: Supple Chest Exam: Positive: Rales (fibrotic rales at both bases), Diminished, Negative: Clear to auscultation Heart Exam: Positive: Irregular Rhythm, Normal S1, Normal S2, Negative: Gallops, Murmurs Telemetry: Positive: Atrial fibrillation Abdomen Exam: Positive: Normal bowel sounds, Soft, Negative: Tenderness, Hepatospenomegaly Extremity Exam: Positive: Cyanosis (left hand finger tips and toes cyanotic- raynaud), Swelling (Erythematous zone is smaller Stage 2 ulcers on skin of lower right rm), Other, Negative: Clubbing Skin Exam: Positive: Breakdown, Lesion (area of redness unchanged from 04/27/17. ulcer on medial lower leg unchanged. no significant drainage visible.) Psych Exam: Positive: Mental status NL (family feels she isn't quite as sharp as usual and occasionally confused.) Assessment /Plan Problems (1) Cellulitis Status: Acute Response to Treatment: Stable Problem Text: 04/29 - Cultures neg, Cipro/ Doxy po, CRP 9.4, down from 20. Afebrile, leukocytosis improved 04/27/17. based on size of erythema, things seem to be improving. no cultures available. C reactive protein is still elevated and climbing. blood cultures were negative. 04/26/17: change to po doxy 04/25 - IV Doxy 04/24 - IV doxy scheduled one dose of IV vanco in ED MSIR for pain control 7.5 mg (2) Hyponatremia Problem Text: 04/29 - Stable 04/27/17: today her sodium is 138, will continue to monitor. if stable then can liberalize fluid intake. Current sodium level is 133. Baseline is 140. may be related to infectious process. Fluid Restriction decreased to 1200 ml. Regular diet. monitor levels. (3) Septic encephalopathy Status: Acute Response to Treatment: Improving Problem Text: 04/29 - remains quite lethargic/fatigued despite improvement and stabilization in her labs 04/26/17: lethargy and fatigue noted. may be related to hyponatremia. 04/25 - Mental status improved to baseline per daughter and pt. 04/24 - suspect will likely improve once infection improves continue to monitor (4) Sepsis Status: Resolved Response to Treatment: Stable Problem Text: 04/29 - MS remains as it has been, cont to monitor. 04/28/17 cipro started 500mg every 18 hours. if increase confusion, hallucinations occur, etc then reduce to 250mg every 18 hours. when ready for discharge reduce to every 24 hours for easier administration at home. 04/27/17: urine showed significant leukocyte burden suggestive of UTI. not exactly "asymptomatic bactiuria" if we have signs of encephalopathy. The doxycycline which appears to be improving the skin problem will not likely be effective for a urinary infection due to poor urinary penetration of this agent. Tetracycline would be better for this purpose but is generally not available. Culture of urine is pending at this time. The nature of her allergy to penicillin needs to be better understood so that use of a beta lactam agent might be considered if needed after culture is available. 04/26/17: will change manager to po doxycycline. WBC 10,000. Bl Cx. negative. urine cx pending. 04/25 - On IV Doxy. WBC 11.6 (12.4 yesterday). Afebrile. Blood cxs pending. Will send urine for cx. 04/24 - HR 110-115 WBC 12.4 source likely ulcer on right rm blood culture, UA pending pt received vanco. in ED., will schedule Doxy (5) CHF (congestive heart failure) Permanent Comment: Echo 10/2016 1. Study is of fair technical quality. 2. Normal LV size with mild LVH, global hypokinesis and more pronounced hypokinesis of the septum and apex and overall EF estimated around 30-35%. 3. Aortic sclerosis but no significant stenosis. 4. At least moderate mitral insufficiency. 5. Moderate tricuspid insufficiency. 6. Unable to estimate central venous pressure. 7. At least mild pulmonary hypertension. Last Edited By: Nicole Rice NP on March 20, 2017 10:57 Status: Chronic Response to Treatment: Stable Problem Text: 04/29 - Torsemide remains on hold, scr has improved slightly today. 04/28/17 torsemide held due to rising creatinine. amlodipine added at 2.5 due to elevated pressures. On Torsemide 20 mg BID. Monitor fluid status. (6) Atrial fibrillation Status: Chronic Response to Treatment: Stable Problem Text: 04/25 - On Lopressor 50 mg BID. 04/24 - continue home metoprolol (7) Hypertension Status: Chronic Response to Treatment: Stable Problem Text: continue home medications (8) Hypothyroid Status: Chronic Response to Treatment: Stable Problem Text: continue home medication (9) DVT prophylaxis Status: Chronic Response to Treatment: Stable Problem Text: scd teds (10) Chronic kidney disease, stage 4 (severe) Status: Chronic Response to Treatment: Stable Problem Text: 04/28/17: creatinine climbing so hold torsemide for now. 04/27/17:Calculated clearance of 19.7 based on labs of 04/27/17 with creatinine 1.73 (11) Left hip pain Status: Acute Problem Text: 04/29 - Patient c/o worse left hip pain today; of note, she rolled out of bed onto her left side on day of admission. She states pain is worse with walking and standing. Hip x-ray was done in the ED and showed degenerative hip disease, and could not rule-out fracture. CT of left hip was done today and was negative for a fracture. Pain is likely due to OA and possibly bruising due to fall. Will monitor. (KES) Plan/VTE VTE Prophylaxis Ordered?: Yes Plan Diet: Continue Current Diagnostics: Check Labs Family Medicine Attending Note: I saw and examined Ms. Linda this afternoon; I d/w YU Klein and I agree with her note with noted additions. As her sodium is now normal, I increased her fluid restriction back to 1800 ml a day, which is her home fluid restriction. Will monitor Cr and continue PT until she is safe for discharge (not yet safe per last PT note). (KES) VS, I&O, 24H, Fishbone Vital Signs/I&O Vital Signs Date Time Temp Pulse Resp B/P (MAP) Pulse Ox O2 Delivery O2 Flow Rate FiO2 04/29/17 06:00 97.8 84 20 122/76 (91) 93 Room Air 04/27/17 23:59 I&O- Last 24 Hours up to 6 AM 04/29/17 06:00 Intake Total 1060 ml Output Total 1300 ml Balance -240 ml Laboratory Data 24H LABS Laboratory Tests 2 04/29/17 05:30: White Blood Count 9.1, Red Blood Count 4.20, Hemoglobin 14.3, Hematocrit 42.5, Mean Corpuscular Volume 101.0H, Mean Corpuscular Hemoglobin 34.1H, Mean Corpuscular Hemoglobin Concent 33.7, Red Cell Distribution Width 13.5, Platelet Count 213, Neutrophils (%) (Auto) 85.5H, Lymphocytes (%) (Auto) 6.2L, Monocytes (%) (Auto) 6.4H, Eosinophils (%) (Auto) 0.6, Basophils (%) (Auto) 0.1, Neutrophils # (Auto) 7.8H, Lymphocytes # (Auto) 0.7L, Monocytes # (Auto) 0.6, Eosinophils # (Auto) 0.0, Basophils # (Auto) 0.0, Large Unclassified Cells % 1.1 , Large Unclassified Cells # 0.1, Anion Gap 9, Glomerular Filtration Rate 27.5L , Blood Urea Nitrogen 98H, Creatinine 1.85H, Sodium Level 137, Potassium Level 3.6#, Chloride Level 99, Carbon Dioxide Level 29, Calcium Level 8.6L, C- Reactive Protein, Quantitative 9.41H CBC/BMP Laboratory Tests 04/29/17 05:30 Red Blood Count 4.20, Mean Corpuscular Volume 101.0 H, Mean Corpuscular Hemoglobin 34.1 H, Mean Corpuscular Hemoglobin Concent 33.7, Red Cell Distribution Width 13.5, Neutrophils (%) (Auto) 85.5 H, Lymphocytes (%) (Auto) 6.2 L, Monocytes (%) (Auto) 6.4 H, Eosinophils (%) (Auto) 0.6, Basophils (%) ( Auto) 0.1, Neutrophils # (Auto) 7.8 H, Lymphocytes # (Auto) 0.7 L, Monocytes # ( Auto) 0.6, Eosinophils # (Auto) 0.0, Basophils # (Auto) 0.0, Calcium Level 8.6 L Microbiology Microbiology 04/24/17 Blood Culture - Preliminary, Resulted No Growth after 72 hours. All specime... 04/24/17 Blood Culture - Preliminary, Resulted No Growth after 72 hours. All specime... 04/27/17 Urine Culture, Received Pending 04/25/17 Urine Culture - Final, Complete Enterococcus Faecium KEIHT PARIKH PA-C Apr 29, 2017 10:38 PAIGE SAMPSON MD Apr 29, 2017 16:41
[2017-04-29] MEDS: APIXABAN 2.5 MG TAB (ELIQUIS) PO SCH ×2 (10:47→21:12)
[2017-04-29] MEDS: NYSTATIN 100,000 UNITS/GM TOPICAL PWD 15 GM TOP SCH ×2 (10:47→21:12)
[2017-04-29] MEDS: DOXYCYCLINE HYCLATE 100 MG TAB PO SCH ×2 (10:47→21:12)
[2017-04-29] MEDS: NORTRIPTYLINE 25 MG CAP PO SCH ×2 (10:48→21:12)
[2017-04-29] MEDS: DOCUSATE SODIUM 100 MG CAP PO SCH ×2 (10:51→21:12)
[2017-04-29] MEDS: METOPROLOL TART 50 MG TAB PO SCH ×2 (11:29→21:13)
[2017-04-29 14:00] VITALS: BP 128/99
--- NOTE | 2017-04-29 15:15 | REP ---
CT STUDY LEFT HIP WITHOUT CONTRAST: HISTORY: Left hip pain after a fall. Inconclusive radiograph. TECHNIQUE: Helical scanning is acquired and 3 mm axial images are reformatted. Coronal and sagittal multiplanar re-formation images are generated and reviewed. CT FINDINGS: There is left hip osteoarthritis with acetabular and femoral spurring. No fracture is evident. There is some tendon insertion site greater trochanteric spurring. There are a few soft tissue calcifications, which appear to be dystrophic anterior to the intertrochanteric portion of the femur. No fracture is seen. The visualized left hemipelvic structures are intact. Vascular calcifications noted. 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 No fracture seen. Signed by Nilesh Zavaleta MD 04/29/2017 03:51 P
[2017-04-29] MEDS: MULTIVITAMINS/MINERALS THERAP 1 TAB PO SCH (21:12)
[2017-04-29 22:00] VITALS: BP 127/83
[2017-04-30] MEDS: CIPROFLOXACIN 500 MG TAB PO SCH ×2 (00:11→18:14)
[2017-04-30] MEDS: LEVOTHYROXINE 88MCG TABLET (0.088 MG) PO SCH (05:44)
[2017-04-30] MEDS: SLF 3 ML SYR IV SCH ×3 (05:45→20:47)
[2017-04-30 06:00] VITALS: BP 127/79
[2017-04-30] MEDS: FORMOTEROL FUMARATE 20 MCG/2 ML INHALATION SOLUTION (PERFOROMIST) INH SCH ×2 (07:15→19:53)
[2017-04-30 07:27] LABS: BASO % 0.1 % (0.0-1.0); EOS # 0.1 K/mm3 (0.0-0.50); EOS % 0.9 % (0.0-3.0); LARGE UNSTAINED CELL # 0.1 K/mm3 (0.0-0.4); LYMPH # 0.6 K/mm3 (1.5-4.5); MEAN CORPUSCULAR HEMOGLOBIN 34.4 pg (27.0-33.0); MEAN CORPUSCULAR HGB CONC 33.6 g/dl (32.0-36.5); MEAN CORPUSCULAR VOLUME 102.5 fl (80.0-96.0); MONO # 0.5 K/mm3 (0.0-0.8); MONO % 5.3 % (0.0-5.0); NEUTROPHILS # 7.5 K/mm3 (1.8-7.7); NEUTROPHILS % 86.7 % (36.0-66.0); PLATELET COUNT, AUTOMATED 228 k/mm3 (150-450); RED CELL DISTRIBUTION WIDTH 13.3 % (11.5-14.5); WHITE BLOOD COUNT 8.7 K/mm3 (4.0-10.0)
[2017-04-30 07:44] LABS: CALCIUM LEVEL 9.4 MG/DL (8.8-10.2); CREATININE FOR GFR 1.44 MG/DL (0.55-1.02); GLOMERULAR FILTRATION RATE 36.7 (>32); POTASSIUM SERUM 3.7 MEQ/L (3.5-5.1)
[2017-04-30] MEDS: DOCUSATE SODIUM 100 MG CAP PO SCH ×2 (10:38→20:45)
[2017-04-30] MEDS: METOPROLOL TART 50 MG TAB PO SCH ×2 (10:38→20:46)
[2017-04-30] MEDS: NORTRIPTYLINE 25 MG CAP PO SCH (10:38)
[2017-04-30] MEDS: DOXYCYCLINE HYCLATE 100 MG TAB PO SCH ×2 (10:39→20:45)
[2017-04-30] MEDS: APIXABAN 2.5 MG TAB (ELIQUIS) PO SCH ×2 (10:39→20:45)
[2017-04-30] MEDS: NYSTATIN 100,000 UNITS/GM TOPICAL PWD 15 GM TOP SCH ×2 (10:40→20:47)
[2017-04-30] MEDS: MOM 30ML SUSPENSION UDC PO PRN (10:40)
[2017-04-30 14:00] VITALS: BP 119/80
[2017-04-30] MEDS: MULTIVITAMINS/MINERALS THERAP 1 TAB PO SCH (20:45)
[2017-04-30 22:00] VITALS: BP 152/98
--- NOTE | 2017-05-01 02:33 | IPNPDOC ---
Subjective Date Seen The patient was seen on 04/30/17. Subjective Chief Complaint/HPI The patient is a 86-year-old female admitted with a reason for visit of Cellulitis. Events since last encounter Patient stated she was doing fairly well, though she complained of fatigue. Not yet cleared by PT for DC home. She has been having some trouble with urinary retention, yesterday worse than today. General: Reports: Fatigue, Denies: Malaise Constitutional: Denies: Chills, Fever Skin: Denies: Rash Pulmonary: Denies: Dyspnea, Cough Cardiovascular: Denies: Chest Pain, Palpitations Gastrointestinal: Denies: Nausea, Vomiting, Diarrhea, Constipation Genitourinary: Reports: Retention Psych: Reports: Mood Normal Objective Physical Examination General Exam: Positive: Cooperative, No Acute Distress, Other (lethargic, falling asleep during conversation. ), Negative: Alert Eye Exam: Positive: Conjunctiva & lids normal, EOMI, Negative: Sclera icteric, Ptosis ENT Exam: Positive: Mucous membr. moist/pink, Pharynx Normal Neck Exam: Positive: Supple Chest Exam: Positive: Rales (fibrotic rales at both bases), Diminished, Negative: Clear to auscultation Heart Exam: Positive: Irregular Rhythm, Normal S1, Normal S2, Negative: Gallops, Murmurs Telemetry: Positive: Atrial fibrillation Abdomen Exam: Positive: Normal bowel sounds, Soft, Negative: Tenderness, Hepatospenomegaly Extremity Exam: Positive: Cyanosis (left hand finger tips and toes cyanotic- raynaud), Swelling (Erythematous zone is smaller Stage 2 ulcers on skin of lower right rm), Other, Negative: Clubbing Skin Exam: Positive: Breakdown, Lesion (area of redness unchanged from 04/27/17. ulcer on medial lower leg unchanged. no significant drainage visible.) Psych Exam: Positive: Mental status NL Assessment /Plan Problems (1) Cellulitis Status: Acute Response to Treatment: Stable Problem Text: 04/30 -- continuing abx as below 04/29 - Cultures neg, Cipro/ Doxy po, CRP 9.4, down from 20. Afebrile, leukocytosis improved 04/27/17. based on size of erythema, things seem to be improving. no cultures available. C reactive protein is still elevated and climbing. blood cultures were negative. 04/26/17: change to po doxy 04/25 - IV Doxy 04/24 - IV doxy scheduled one dose of IV vanco in ED MSIR for pain control 7.5 mg (2) Hyponatremia Problem Text: 04/29 - Stable 04/27/17: today her sodium is 138, will continue to monitor. if stable then can liberalize fluid intake. Current sodium level is 133. Baseline is 140. may be related to infectious process. Fluid Restriction decreased to 1200 ml. Regular diet. monitor levels. (3) Septic encephalopathy Status: Acute Response to Treatment: Improving Problem Text: 04/30 -- admits fatigue but does not seem lethargic on exam today 04/29 - remains quite lethargic/fatigued despite improvement and stabilization in her labs 04/26/17: lethargy and fatigue noted. may be related to hyponatremia. 04/25 - Mental status improved to baseline per daughter and pt. 04/24 - suspect will likely improve once infection improves continue to monitor (4) Sepsis Status: Resolved Response to Treatment: Stable Problem Text: 04/29 - MS remains as it has been, cont to monitor. 04/28/17 cipro started 500mg every 18 hours. if increase confusion, hallucinations occur, etc then reduce to 250mg every 18 hours. when ready for discharge reduce to every 24 hours for easier administration at home. 04/27/17: urine showed significant leukocyte burden suggestive of UTI. not exactly "asymptomatic bactiuria" if we have signs of encephalopathy. The doxycycline which appears to be improving the skin problem will not likely be effective for a urinary infection due to poor urinary penetration of this agent. Tetracycline would be better for this purpose but is generally not available. Culture of urine is pending at this time. The nature of her allergy to penicillin needs to be better understood so that use of a beta lactam agent might be considered if needed after culture is available. 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 WBC 10,000. Bl Cx. negative. urine cx pending. 04/25 - On IV Doxy. WBC 11.6 (12.4 yesterday). Afebrile. Blood cxs pending. Will send urine for cx. 04/24 - HR 110-115 WBC 12.4 source likely ulcer on right rm blood culture, UA pending pt received vanco. in ED., will schedule Doxy (5) CHF (congestive heart failure) Permanent Comment: Echo 10/2016 1. Study is of fair technical quality. 2. Normal LV size with mild LVH, global hypokinesis and more pronounced hypokinesis of the septum and apex and overall EF estimated around 30-35%. 3. Aortic sclerosis but no significant stenosis. 4. At least moderate mitral insufficiency. 5. Moderate tricuspid insufficiency. 6. Unable to estimate central venous pressure. 7. At least mild pulmonary hypertension. Last Edited By: Nicole Rice NP on March 20, 2017 10:57 Status: Chronic Response to Treatment: Stable Problem Text: 04/29 - Torsemide remains on hold, scr has improved slightly today. 04/28/17 torsemide held due to rising creatinine. amlodipine added at 2.5 due to elevated pressures. On Torsemide 20 mg BID. Monitor fluid status. (6) Atrial fibrillation Status: Chronic Response to Treatment: Stable Problem Text: 04/25 - On Lopressor 50 mg BID. 04/24 - continue home metoprolol (7) Hypertension Status: Chronic Response to Treatment: Stable Problem Text: continue home medications (8) Hypothyroid Status: Chronic Response to Treatment: Stable Problem Text: continue home medication (9) DVT prophylaxis Status: Chronic Response to Treatment: Stable Problem Text: scd teds (10) Chronic kidney disease, stage 4 (severe) Status: Chronic Response to Treatment: Stable Problem Text: 04/28/17: creatinine climbing so hold torsemide for now. 04/27/17:Calculated clearance of 19.7 based on labs of 04/27/17 with creatinine 1.73 (11) Left hip pain Status: Acute Problem Text: 04/29 - Patient c/o worse left hip pain today; of note, she rolled out of bed onto her left side on day of admission. She states pain is worse with walking and standing. Hip x-ray was done in the ED and showed degenerative hip disease, and could not rule-out fracture. CT of left hip was done today and was negative for a fracture. Pain is likely due to OA and possibly bruising due to fall. Will monitor. (KES) (12) Retention of urine Problem Text: 04/30 -- Held nortriptyline, as retention can be a side effect. Plan/VTE VTE Prophylaxis Ordered?: Yes Plan Diet: Continue Current Diagnostics: Check Labs VS, I&O, 24H, Fishbone Vital Signs/I&O Vital Signs Date Time Temp Pulse Resp B/P (MAP) Pulse Ox O2 Delivery O2 Flow Rate FiO2 04/30/17 22:00 97.3 60 16 152/98 (116) 98 Room Air 04/27/17 23:59 I&O- Last 24 Hours up to 6 AM 05/01/17 06:00 Intake Total 1360 ml Output Total 1650 ml Balance -290 ml Laboratory Data 24H LABS Laboratory Tests 2 04/30/17 06:46: White Blood Count 8.7, Red Blood Count 4.30, Hemoglobin 14.8, Hematocrit 44.0, Mean Corpuscular Volume 102.5H, Mean Corpuscular Hemoglobin 34.4H, Mean Corpuscular Hemoglobin Concent 33.6, Red Cell Distribution Width 13.3, Platelet Count 228, Neutrophils (%) (Auto) 86.7H, Lymphocytes (%) (Auto) 6.0L, Monocytes (%) (Auto) 5.3H, Eosinophils (%) (Auto) 0.9, Basophils (%) (Auto) 0.1, Neutrophils # (Auto) 7.5, Lymphocytes # (Auto) 0.6L, Monocytes # (Auto) 0.5, Eosinophils # (Auto) 0.1, Basophils # (Auto) 0.0, Large Unclassified Cells % 1.0 , Large Unclassified Cells # 0.1, Anion Gap 8, Glomerular Filtration Rate 36.7, Blood Urea Nitrogen 93H, Creatinine 1.44H, Sodium Level 137, Potassium Level 3.7 , Chloride Level 98, Carbon Dioxide Level 31, Calcium Level 9.4 CBC/BMP Laboratory Tests 04/30/17 06:46 Red Blood Count 4.30, Mean Corpuscular Volume 102.5 H, Mean Corpuscular Hemoglobin 34.4 H, Mean Corpuscular Hemoglobin Concent 33.6, Red Cell Distribution Width 13.3, Neutrophils (%) (Auto) 86.7 H, Lymphocytes (%) (Auto) 6.0 L, Monocytes (%) (Auto) 5.3 H, Eosinophils (%) (Auto) 0.9, Basophils (%) ( Auto) 0.1, Neutrophils # (Auto) 7.5, Lymphocytes # (Auto) 0.6 L, Monocytes # ( Auto) 0.5, Eosinophils # (Auto) 0.1, Basophils # (Auto) 0.0, Calcium Level 9.4 Microbiology Microbiology 04/24/17 Blood Culture - Final, Complete NO GROWTH AFTER 5 DAYS 04/24/17 Blood Culture - Final, Complete NO GROWTH AFTER 5 DAYS 04/27/17 Urine Culture - Final, Complete Enterococcus Faecium 04/25/17 Urine Culture - Final, Complete Enterococcus Faecium ELIESER JIM DO May 01, 2017 02:33
[2017-05-01] MEDS: LEVOTHYROXINE 88MCG TABLET (0.088 MG) PO SCH (05:38)
[2017-05-01] MEDS: SLF 3 ML SYR IV SCH ×3 (05:38→21:46)
[2017-05-01 06:00] VITALS: BP 131/90
[2017-05-01 06:22] LABS: BASO % 0.3 % (0.0-1.0); EOS % 0.4 % (0.0-3.0); LARGE UNSTAINED CELL # 0.2 K/mm3 (0.0-0.4); LYMPH # 0.8 K/mm3 (1.5-4.5); LYMPH % 7.3 % (24.0-44.0); MEAN CORPUSCULAR HEMOGLOBIN 34.4 pg (27.0-33.0); MEAN CORPUSCULAR VOLUME 104.1 fl (80.0-96.0); MONO # 0.7 K/mm3 (0.0-0.8); MONO % 7.6 % (0.0-5.0); NEUTROPHILS # 7.1 K/mm3 (1.8-7.7); NEUTROPHILS % 82.4 % (36.0-66.0); PLATELET COUNT, AUTOMATED 180 k/mm3 (150-450); RED CELL DISTRIBUTION WIDTH 13.5 % (11.5-14.5); WHITE BLOOD COUNT 8.6 K/mm3 (4.0-10.0)
[2017-05-01 06:37] LABS: CREATININE FOR GFR 1.28 MG/DL (0.55-1.02)
[2017-05-01] MEDS: FORMOTEROL FUMARATE 20 MCG/2 ML INHALATION SOLUTION (PERFOROMIST) INH SCH ×2 (07:13→19:35)
[2017-05-01] MEDS: MOM 30ML SUSPENSION UDC PO PRN (09:25)
[2017-05-01] MEDS: METOPROLOL TART 50 MG TAB PO SCH ×2 (09:26→21:45)
[2017-05-01] MEDS: APIXABAN 2.5 MG TAB (ELIQUIS) PO SCH ×2 (09:26→21:45)
[2017-05-01] MEDS: DOXYCYCLINE HYCLATE 100 MG TAB PO SCH ×2 (09:26→21:45)
[2017-05-01] MEDS: DOCUSATE SODIUM 100 MG CAP PO SCH ×2 (09:26→21:45)
[2017-05-01] MEDS: NYSTATIN 100,000 UNITS/GM TOPICAL PWD 15 GM TOP SCH ×2 (09:27→21:46)
[2017-05-01] MEDS ORDERED: FLEET ENEMA PR PRN (10:15)
--- NOTE | 2017-05-01 10:35 | IPNPDOC ---
Subjective Date Seen The patient was seen on 05/01/17. Subjective Chief Complaint/HPI The patient is a 86-year-old female admitted with a reason for visit of Cellulitis. Events since last encounter No BM since admission. Denies n/v or abd pain. Nurses have been straight cathing patient due to urinary retention Constitutional: Denies: Chills, Fever Pulmonary: Denies: Dyspnea, Cough Cardiovascular: Denies: Chest Pain Gastrointestinal: Reports: Constipation, Denies: Nausea, Vomiting, Abdominal Pain, Diarrhea Genitourinary: Reports: Retention Objective Physical Examination General Exam: Positive: Cooperative, No Acute Distress, Other (Awake, laert, sitting up in chair, NAD), Negative: Alert Eye Exam: Negative: Sclera icteric, Ptosis Neck Exam: Positive: Supple Chest Exam: Positive: Rales (fibrotic rales at both bases), Diminished, Negative: Clear to auscultation Heart Exam: Positive: Irregular Rhythm, Normal S1, Normal S2, Negative: Gallops, Murmurs Abdomen Exam: Positive: Normal bowel sounds, Soft, Negative: Tenderness, Hepatospenomegaly Extremity Exam: Positive: Cyanosis (left hand finger tips and toes cyanotic- raynaud), Swelling (erythematous area now with only faint erythema. 1 = edema right leg. No edema left,. Stage 2 ulcers on skin of lower right rm without surrounding erythema or drainage), Negative: Clubbing Skin Exam: Positive: Breakdown, Lesion (ulcer on medial lower leg unchanged. no significant drainage visible.) Assessment /Plan Problems (1) Cellulitis Status: Acute Response to Treatment: Stable Problem Text: 05/01 - Improved significantly. Continue oral Doxy/Cipro - this is day 8 of doxycycline for cellulitis. (2) UTI (urinary tract infection) Status: Acute Response to Treatment: Improving Problem Text: U/C grew Enterococcus Faecium - Sensitive to Quinolones - continue Cipro - this is day 4 of cipro for UTI. (3) Retention of urine Problem Text: 05/01 - No BM since admission - Constipation may be contributing to urinary retention or perhaps the urinary retention is causing constipation. Regardless, I will increase bowel care. Continue colace and MOM. Add Miralax and Fleets Continue to straight cath prn 04/30 -- Held nortriptyline, as retention can be a side effect. (4) Constipation Status: Acute Problem Text: see above. Add Miralalax and Fleets (5) Ulcer of rm Status: Chronic Response to Treatment: Improving Problem Text: Continue wound care (6) CHF (congestive heart failure) Permanent Comment: Echo 10/2016 1. Study is of fair technical quality. 2. Normal LV size with mild LVH, global hypokinesis and more pronounced hypokinesis of the septum and apex and overall EF estimated around 30-35%. 3. Aortic sclerosis but no significant stenosis. 4. At least moderate mitral insufficiency. 5. Moderate tricuspid insufficiency. 6. Unable to estimate central venous pressure. 7. At least mild pulmonary hypertension. Last Edited By: Nicole Rice NP on March 20, 2017 10:57 Status: Chronic Response to Treatment: Stable Problem Text: 05/01 - Torsemide remains on hold. Renal function improving. Remains compensated clinically 04/28/17 torsemide held due to rising creatinine. Amlodipine added at 2.5 due to elevated pressures. (7) Hyponatremia Status: Resolved Problem Text: 04/29 - Stable; fluid restriction increased to 1800 ml (baseline) 04/27/17: today her sodium is 138, will continue to monitor. if stable then can liberalize fluid intake. Current sodium level is 133. Baseline is 140. may be related to infectious process. Fluid Restriction decreased to 1200 ml. Regular diet. monitor levels. (8) Septic encephalopathy Status: Resolved Response to Treatment: Improving Problem Text: 05/01 - Mental status seems to have improved to baseline today 04/30 -- admits fatigue but does not seem lethargic on exam today 04/29 - remains quite lethargic/fatigued despite improvement and stabilization in her labs 04/26/17: lethargy and fatigue noted. may be related to hyponatremia. 04/25 - Mental status improved to baseline per daughter and pt. 04/24 - suspect will likely improve once infection improves continue to monitor (9) Sepsis Status: Resolved Response to Treatment: Stable Problem Text: 04/29 - MS remains as it has been, cont to monitor. 04/28/17 cipro started 500mg every 18 hours. if increase confusion, hallucinations occur, etc then reduce to 250mg every 18 hours. when ready for discharge reduce to every 24 hours for easier administration at home. 04/27/17: urine showed significant leukocyte burden suggestive of UTI. not exactly "asymptomatic bactiuria" if we have signs of encephalopathy. The doxycycline which appears to be improving the skin problem will not likely be effective for a urinary infection due to poor urinary penetration of this agent. Tetracycline would be better for this purpose but is generally not available. Culture of urine is pending at this time. The nature of her allergy to penicillin needs to be better understood so that use of a beta lactam agent might be considered if needed after culture is available. 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 WBC 10,000. Bl Cx. negative. urine cx pending. 04/25 - On IV Doxy. WBC 11.6 (12.4 yesterday). Afebrile. Blood cxs pending. Will send urine for cx. 04/24 - HR 110-115 WBC 12.4 source likely ulcer on right rm blood culture, UA pending pt received vanco. in ED., will schedule Doxy (10) Atrial fibrillation Status: Chronic Response to Treatment: Stable Problem Text: 04/25 - On Lopressor 50 mg BID. 04/24 - continue home metoprolol (11) Hypertension Status: Chronic Response to Treatment: Stable Problem Text: continue home medications (12) Hypothyroid Status: Chronic Response to Treatment: Stable Problem Text: continue home medication (13) DVT prophylaxis Status: Chronic Response to Treatment: Stable Problem Text: scd teds (14) Chronic kidney disease, stage 4 (severe) Status: Chronic Response to Treatment: Stable Problem Text: Torsemide held for increased Cr; Cr steadily improving. (15) Left hip pain Status: Acute Problem Text: 04/29 - Patient c/o worse left hip pain today; of note, she rolled out of bed onto her left side on day of admission. She states pain is worse with walking and standing. Hip x-ray was done in the ED and showed degenerative hip disease, and could not rule-out fracture. CT of left hip was done today and was negative for a fracture. Pain is likely due to OA and possibly bruising due to fall. Will monitor. Plan/VTE VTE Prophylaxis Ordered?: Yes Plan Diet: Continue Current Diagnostics: Check Labs Family medicine attending note: I examined Ms. Linda this morning and I d/w YU Cornelius and I agree with her note above. I agree with treating constipation and continuing UTI treatment to see if this improves her urinary retention. PT note from today still pending - will hopefully be able to discharge her home in the next 1-2 days once deemed safe by PT, and I will arrange for outpatient PT as well. Kidney function is steadily improving. (BRIELLE ) Disposition Needs one to 2 more days of PT to be safe. Also need to monitor urinary retention issues VS, I&O, 24H, Fishbone Vital Signs/I&O Vital Signs Date Time Temp Pulse Resp B/P (MAP) Pulse Ox O2 Delivery O2 Flow Rate FiO2 05/01/17 09:26 70 131/90 05/01/17 06:00 97.0 18 98 Room Air 04/27/17 23:59 I&O- Last 24 Hours up to 6 AM 05/01/17 06:00 Intake Total 1360 ml Output Total 2850 ml Balance -1490 ml Laboratory Data 24H LABS Laboratory Tests 2 05/01/17 05:56: White Blood Count 8.6, Red Blood Count 4.41, Hemoglobin 15.1, Hematocrit 45.9, Mean Corpuscular Volume 104.1H, Mean Corpuscular Hemoglobin 34.4H, Mean Corpuscular Hemoglobin Concent 33.0, Red Cell Distribution Width 13.5, Platelet Count 180, Neutrophils (%) (Auto) 82.4H, Lymphocytes (%) (Auto) 7.3L, Monocytes (%) (Auto) 7.6H, Eosinophils (%) (Auto) 0.4, Basophils (%) (Auto) 0.3, Neutrophils # (Auto) 7.1, Lymphocytes # (Auto) 0.8L, Monocytes # (Auto) 0.7, Eosinophils # (Auto) 0.0, Basophils # (Auto) 0.0, Large Unclassified Cells % 2.0 , Large Unclassified Cells # 0.2, Anion Gap 7L, Glomerular Filtration Rate 42.0 , Blood Urea Nitrogen 76H, Creatinine 1.28H, Sodium Level 138, Potassium Level 4.0, Chloride Level 103, Carbon Dioxide Level 28, Calcium Level 9.0 CBC/BMP Laboratory Tests 05/01/17 05:56 Red Blood Count 4.41, Mean Corpuscular Volume 104.1 H, Mean Corpuscular Hemoglobin 34.4 H, Mean Corpuscular Hemoglobin Concent 33.0, Red Cell Distribution Width 13.5, Neutrophils (%) (Auto) 82.4 H, Lymphocytes (%) (Auto) 7.3 L, Monocytes (%) (Auto) 7.6 H, Eosinophils (%) (Auto) 0.4, Basophils (%) ( Auto) 0.3, Neutrophils # (Auto) 7.1, Lymphocytes # (Auto) 0.8 L, Monocytes # ( Auto) 0.7, Eosinophils # (Auto) 0.0, Basophils # (Auto) 0.0, Calcium Level 9.0 Microbiology Microbiology 04/24/17 Blood Culture - Final, Complete NO GROWTH AFTER 5 DAYS 04/24/17 Blood Culture - Final, Complete NO GROWTH AFTER 5 DAYS 04/27/17 Urine Culture - Final, Complete Enterococcus Faecium 04/25/17 Urine Culture - Final, Complete Enterococcus Faecium MARTY MOSQUEDA PA-C May 01, 2017 10:35 PAIGE SAMPSON MD May 01, 2017 14:11
[2017-05-01] MEDS: MIRALAX *UNIT DOSE* 17GM PACKET PO SCH (11:50)
[2017-05-01] MEDS: CIPROFLOXACIN 500 MG TAB PO SCH (12:43)
[2017-05-01 14:00] VITALS: BP 134/91
[2017-05-01] MEDS: MULTIVITAMINS/MINERALS THERAP 1 TAB PO SCH (21:44)
[2017-05-01 22:00] VITALS: BP 140/94
[2017-05-02] MEDS: CIPROFLOXACIN 500 MG TAB PO SCH (05:35)
[2017-05-02] MEDS: LEVOTHYROXINE 88MCG TABLET (0.088 MG) PO SCH (05:35)
[2017-05-02] MEDS: SLF 3 ML SYR IV SCH (05:35)
[2017-05-02 06:00] VITALS: BP 128/76
[2017-05-02] MEDS: FORMOTEROL FUMARATE 20 MCG/2 ML INHALATION SOLUTION (PERFOROMIST) INH SCH (07:16)
[2017-05-02] MEDS: DOCUSATE SODIUM 100 MG CAP PO SCH (08:57)
[2017-05-02] MEDS: MIRALAX *UNIT DOSE* 17GM PACKET PO SCH (08:57)
[2017-05-02] MEDS: NYSTATIN 100,000 UNITS/GM TOPICAL PWD 15 GM TOP SCH (08:57)
[2017-05-02 08:58] VITALS: BP 135/91
[2017-05-02] MEDS: DOXYCYCLINE HYCLATE 100 MG TAB PO SCH (08:58)
[2017-05-02] MEDS: APIXABAN 2.5 MG TAB (ELIQUIS) PO SCH (08:58)
[2017-05-02] MEDS: METOPROLOL TART 50 MG TAB PO SCH (08:58)
[2017-05-02] MEDS ORDERED: CIPR-249 PO (10:47)
[2017-05-02] MEDS ORDERED: MILKSUS PO (10:47)
[2017-05-02] MEDS ORDERED: DOXY100T2 PO (10:47)
[2017-05-02] MEDS ORDERED: PEG1POW PO (10:47)
[2017-05-02] MEDS ORDERED: AMLO25TA PO (10:47)
[2017-05-02] MEDS ORDERED: COLA100C5 PO (10:47)
--- NOTE | 2017-05-03 06:33 | DSES ---
DATE OF ADMISSION: 04/24/2017 DATE OF DISCHARGE: 05/02/2017 HISTORY: This is an 86-year-old female patient who lives at home independently, who came into the hospital for altered mental status, increased volume and redness of her right lower extremity, as well as increased fatigue. She was admitted to the hospital for cellulitis, sepsis, altered mental status. HOSPITAL COURSE: During her hospitalization, she has remained medically stable. Blood cultures times two were negative. Urine culture grew Enterococcus faecium. She was treated with intravenous (IV) Cipro for doxycycline for skin and urinary infection. Her white blood cell count has trended down from 12,000 to 8.6 yesterday, the day prior to her discharge. She also had some mild acute renal failure which has steadily improved during her hospitalization as well. She complained of some left hip pain and underwent imaging, which was initially of advanced osteoarthritic changes. Followup CT to ensure no fracture as the patient did suffer a fall was obtained and was also benign. She has been seen by physical therapy who feel as though she would benefit from continued rehabilitation. Her daughter has arranged for her to have 24-hour care at home and will continue with outpatient physical therapy and [facility] services in the home. The patient developed some urinary retention, although she had not had a bowel movement since admission. As soon as she started moving her bowels, she had improved urinary output as well. DISCHARGE DIAGNOSES: 1. Cellulitis. 2. Urinary tract infection. 3. Urinary retention. 4. Constipation. 5. Congestive heart failure. 6. Hyponatremia. 7. Sepsis secondary to skin and urinary infection. 8. Atrial fibrillation. DISCHARGE PLAN: Will be to followup with Dr. Mann in one week. Her activity should be as tolerated. Her diet should be [id number] with 1800 mL fluid restriction. MTDD
== END 2017-05-02 11:50 | disposition home health service (06) | DRG 871 ==
LOC: M ED 15:26 → M ED INP 19:50 → M PCU 23:06 → M MSPAV 04-28 17:27
PROVIDERS: ATTEND Family Medicine
DX: A41.9 Sepsis, unspecified organism (principal); G93.41 Metabolic encephalopathy; L03.115 Cellulitis of right lower limb; I50.22 Chronic systolic (congestive) heart failure; I48.1 Persistent atrial fibrillation; E87.1 Hypo-osmolality and hyponatremia; N39.0 Urinary tract infection, site not specified; N18.4 Chronic kidney disease, stage 4 (severe); I13.0 Hypertensive heart and chronic kidney disease with heart failure and stage 1 through stage 4 chronic kidney disease, or unspecified chronic kidney disease; I73.00 Raynaud's syndrome without gangrene; J84.10 Pulmonary fibrosis, unspecified; B95.2 Enterococcus as the cause of diseases classified elsewhere; Z66 Do not resuscitate; M25.552 Pain in left hip; E03.9 Hypothyroidism, unspecified; R33.9 Retention of urine, unspecified; I27.2 Other secondary pulmonary hypertension; G62.9 Polyneuropathy, unspecified; M81.0 Age-related osteoporosis without current pathological fracture; I73.9 Peripheral vascular disease, unspecified; N26.1 Atrophy of kidney (terminal); Z86.73 Personal history of transient ischemic attack (TIA), and cerebral infarction without residual deficits; Z98.62 Peripheral vascular angioplasty status; Z79.899 Other long term (current) drug therapy; Z88.0 Allergy status to penicillin; Z88.6 Allergy status to analgesic agent; Z88.8 Allergy status to other drugs, medicaments and biological substances

== ENCOUNTER → 2017-05-09 | Outpatient (REF) | payer MEDICARE, OTHER ==
[~2017-05-09] MED LIST changes: +CIPR-249 PO; +DOXY100T2 PO; +ELIQ2.5T PO; +MILKSUS PO; +PEG1POW PO; +TORS20TA2 PO
[2017-05-09 18:12] LABS: CALCIUM LEVEL 9.3 MG/DL (8.8-10.2); CREATININE FOR GFR 1.16 MG/DL (0.55-1.02); POTASSIUM SERUM 3.2 MEQ/L (3.5-5.1)
== END ==
LOC: M SFHCPLAZ 11:33
PROVIDERS: ATTEND Family Medicine
DX: N18.3 Chronic kidney disease, stage 3 (moderate) (principal)
CPT/HCPCS: 36415; 80048; G0463

== ENCOUNTER → 2017-08-21 | Outpatient (REF) | payer MEDICARE, OTHER ==
[2017-08-21 14:10] LABS: CREATININE FOR GFR 1.11 MG/DL (0.55-1.02); GLOMERULAR FILTRATION RATE 49.5 (>32); POTASSIUM SERUM 3.8 MEQ/L (3.5-5.1)
== END ==
LOC: M SFHCPLAZ 11:32
PROVIDERS: ATTEND Family Medicine
DX: E87.6 Hypokalemia (principal); E03.9 Hypothyroidism, unspecified; Z23 Encounter for immunization
CPT/HCPCS: 80048; 84443; 90662; G0008; G0463

== ENCOUNTER → 2017-10-07 | Outpatient (REF) | payer MEDICARE, OTHER | LOC: M SFHCPLAZ 12:51 | PROVIDERS: ATTEND Family Medicine | DX: R35.0 Frequency of micturition (principal) ==

== ENCOUNTER 2017-11-20 17:19 | Inpatient (IN) | payer MEDICARE, OTHER ==
[2017-11-20] MEDS: FUROSEMIDE 40 MG/4 ML VIAL (J1940) IV ×3 (16:00→20:02)
[2017-11-20 18:58] LABS: NT-PRO BNP 40482 PG/ML (<450)
[2017-11-20 18:58] LABS: MAGNESIUM LEVEL 2.5 MG/DL (1.8-2.4)
[2017-11-20 19:04] LABS: HEMATOCRIT 41.1 % (36.0-47.0); HEMOGLOBIN 13.9 g/dl (12.0-16.0); MEAN CORPUSCULAR HEMOGLOBIN 33.5 pg (27.0-33.0); MEAN CORPUSCULAR HGB CONC 33.8 g/dl (32.0-36.5); PLATELET COUNT, AUTOMATED 216 10^3/uL (150-450); RED BLOOD COUNT 4.15 10^6/uL (4.00-5.40); RED CELL DISTRIBUTION WIDTH 15.4 % (11.5-14.5); WHITE BLOOD COUNT 7.6 10^3/uL (4.0-10.0)
[2017-11-20] MEDS: APIXABAN 2.5 MG TAB (ELIQUIS) PO (20:03)
[2017-11-20] MEDS: NORTRIPTYLINE 25 MG CAP PO (20:03)
[2017-11-20] MEDS: METOPROLOL TART 50 MG TAB PO (20:03)
[2017-11-20] MEDS: FORMOTEROL FUMARATE 20 MCG/2 ML INHALATION SOLUTION (PERFOROMIST) INH (21:24)
[2017-11-21] MEDS: FUROSEMIDE 40 MG/4 ML VIAL (J1940) IV ×6 (00:07→20:15)
[2017-11-21 06:07] LABS: ANION GAP 11 MEQ/L (8-16); BLOOD UREA NITROGEN 48 MG/DL (7-18); CALCIUM LEVEL 9.2 MG/DL (8.8-10.2); CARBON DIOXIDE LEVEL 24 MEQ/L (21-32); CHLORIDE LEVEL 101 MEQ/L (98-107); CREATININE FOR GFR 1.46 MG/DL (0.55-1.30); GLUCOSE, FASTING 96 MG/DL (70-100); POTASSIUM SERUM 3.9 MEQ/L (3.5-5.1); SODIUM LEVEL 136 MEQ/L (136-145)
[2017-11-21] MEDS: LEVOTHYROXINE 88MCG TABLET (0.088 MG) PO (06:31)
[2017-11-21] MEDS: FORMOTEROL FUMARATE 20 MCG/2 ML INHALATION SOLUTION (PERFOROMIST) INH ×2 (08:45→20:11)
[2017-11-21] MEDS: DOCUSATE SODIUM 100 MG CAP PO (09:06)
[2017-11-21] MEDS: APIXABAN 2.5 MG TAB (ELIQUIS) PO ×2 (09:06→20:16)
[2017-11-21] MEDS: METOPROLOL TART 50 MG TAB PO ×2 (09:06→20:16)
[2017-11-21] MEDS: POTASSIUM CHLORIDE 10 MEQ SR TABLET PO (09:06)
[2017-11-21] MEDS: NORTRIPTYLINE 25 MG CAP PO (20:15)
[2017-11-21 20:40] LABS: KETONE, URINE AUTO RFX NEGATIVE (NEGATIVE); NITRITE, URINE AUTO RFX NEGATIVE (NEGATIVE); RBC, URINE AUTO RFX 54 /HPF (0-3); SPECIFIC GRAVITY UR AUTO RFX 1.009 (1.002-1.035); SQUAM EPITHELIAL CELL UR AURFX 1 /HPF (0-6)
[2017-11-21 20:41] LABS: LEUKOCYTE ESTERASE UR AUTO RFX 3+ (NEGATIVE); WBC, URINE AUTO RFX TNTC /HPF (0-3)
[2017-11-22] MEDS: FUROSEMIDE 40 MG/4 ML VIAL (J1940) IV ×4 (00:16→16:00)
[2017-11-22] MEDS: LEVOTHYROXINE 88MCG TABLET (0.088 MG) PO (05:24)
[2017-11-22 06:18] LABS: ANION GAP 10 MEQ/L (8-16); BLOOD UREA NITROGEN 45 MG/DL (7-18); CALCIUM LEVEL 8.3 MG/DL (8.8-10.2); CARBON DIOXIDE LEVEL 31 MEQ/L (21-32); CHLORIDE LEVEL 100 MEQ/L (98-107); CREATININE FOR GFR 1.21 MG/DL (0.55-1.30); GLOMERULAR FILTRATION RATE 44.7 (>32); GLUCOSE, FASTING 100 MG/DL (70-100); POTASSIUM SERUM 2.8 MEQ/L (3.5-5.1); SODIUM LEVEL 141 MEQ/L (136-145)
[2017-11-22] MEDS: POTASSIUM CHLORIDE 10 MEQ SR TABLET PO ×3 (08:45→20:33)
[2017-11-22] MEDS: DOCUSATE SODIUM 100 MG CAP PO (08:46)
[2017-11-22] MEDS: METOPROLOL TART 50 MG TAB PO ×2 (08:46→20:34)
[2017-11-22] MEDS: APIXABAN 2.5 MG TAB (ELIQUIS) PO ×2 (08:46→20:34)
[2017-11-22] MEDS: FORMOTEROL FUMARATE 20 MCG/2 ML INHALATION SOLUTION (PERFOROMIST) INH ×2 (09:17→20:19)
[2017-11-22] MEDS: DOXYCYCLINE HYCLATE 100 MG TAB PO ×2 (10:07→20:34)
[2017-11-22 12:36] LABS: ANION GAP 8 MEQ/L (8-16); BLOOD UREA NITROGEN 48 MG/DL (7-18); CARBON DIOXIDE LEVEL 33 MEQ/L (21-32); CHLORIDE LEVEL 97 MEQ/L (98-107); CREATININE FOR GFR 1.61 MG/DL (0.55-1.30); GLOMERULAR FILTRATION RATE 32.2 (>32); GLUCOSE, FASTING 161 MG/DL (70-100); MAGNESIUM LEVEL 2.4 MG/DL (1.8-2.4); POTASSIUM SERUM 4.8 MEQ/L (3.5-5.1); SODIUM LEVEL 138 MEQ/L (136-145)
[2017-11-22] MEDS: ACETAMINOPHEN TAB 650MG DOSE (2X325MG) PO (14:52)
[2017-11-22] MEDS: DIGOXIN INJ 0.5 MG/2 ML AMP (J1160) IV ×2 (14:52→20:36)
[2017-11-22] MEDS: NORTRIPTYLINE 25 MG CAP PO (20:33)
[2017-11-23] MEDS: FUROSEMIDE 40 MG/4 ML VIAL (J1940) IV ×3 (00:11→16:28)
[2017-11-23 05:32] LABS: ANION GAP 8 MEQ/L (8-16); BLOOD UREA NITROGEN 53 MG/DL (7-18); CALCIUM LEVEL 8.2 MG/DL (8.8-10.2); CARBON DIOXIDE LEVEL 33 MEQ/L (21-32); CHLORIDE LEVEL 104 MEQ/L (98-107); CREATININE FOR GFR 1.56 MG/DL (0.55-1.30); DIGOXIN LEVEL 1.7 NG/ML (0.5-2.0); GLOMERULAR FILTRATION RATE 33.3 (>32); GLUCOSE, FASTING 74 MG/DL (70-100); POTASSIUM SERUM 4.2 MEQ/L (3.5-5.1); SODIUM LEVEL 145 MEQ/L (136-145)
[2017-11-23] MEDS: LEVOTHYROXINE 88MCG TABLET (0.088 MG) PO (06:27)
[2017-11-23] MEDS: FORMOTEROL FUMARATE 20 MCG/2 ML INHALATION SOLUTION (PERFOROMIST) INH ×2 (08:09→20:20)
[2017-11-23] MEDS: DOXYCYCLINE HYCLATE 100 MG TAB PO ×2 (08:45→20:44)
[2017-11-23] MEDS: APIXABAN 2.5 MG TAB (ELIQUIS) PO ×2 (08:45→20:43)
[2017-11-23] MEDS: POTASSIUM CHLORIDE 10 MEQ SR TABLET PO ×2 (08:45→20:43)
[2017-11-23] MEDS: DOCUSATE SODIUM 100 MG CAP PO (08:45)
[2017-11-23] MEDS: METOPROLOL TART 50 MG TAB PO ×2 (08:46→20:43)
[2017-11-23] MEDS: NORTRIPTYLINE 25 MG CAP PO (20:43)
[2017-11-23] MEDS: ACETAMINOPHEN TAB 650MG DOSE (2X325MG) PO (20:47)
[2017-11-24] MEDS: FUROSEMIDE 40 MG/4 ML VIAL (J1940) IV ×3 (00:12→16:44)
[2017-11-24 04:26] LABS: ANION GAP 5 MEQ/L (8-16); BLOOD UREA NITROGEN 52 MG/DL (7-18); CALCIUM LEVEL 8.4 MG/DL (8.8-10.2); CARBON DIOXIDE LEVEL 33 MEQ/L (21-32); CHLORIDE LEVEL 105 MEQ/L (98-107); CREATININE FOR GFR 1.31 MG/DL (0.55-1.30); GLOMERULAR FILTRATION RATE 40.8 (>32); GLUCOSE, FASTING 80 MG/DL (70-100); POTASSIUM SERUM 4.2 MEQ/L (3.5-5.1); SODIUM LEVEL 143 MEQ/L (136-145)
[2017-11-24] MEDS: LEVOTHYROXINE 88MCG TABLET (0.088 MG) PO (06:17)
[2017-11-24] MEDS: FORMOTEROL FUMARATE 20 MCG/2 ML INHALATION SOLUTION (PERFOROMIST) INH ×2 (08:17→20:38)
[2017-11-24] MEDS: DOXYCYCLINE HYCLATE 100 MG TAB PO ×2 (08:23→20:40)
[2017-11-24] MEDS: POTASSIUM CHLORIDE 10 MEQ SR TABLET PO (08:23)
[2017-11-24] MEDS: DIGOXIN 0.125 MG TAB PO (08:23)
[2017-11-24] MEDS: DOCUSATE SODIUM 100 MG CAP PO (08:23)
[2017-11-24] MEDS: APIXABAN 2.5 MG TAB (ELIQUIS) PO ×2 (08:24→20:40)
[2017-11-24] MEDS: METOPROLOL TART 50 MG TAB PO ×2 (08:24→20:43)
[2017-11-24] MEDS: MIRALAX *UNIT DOSE* 17GM PACKET PO ×2 (10:37→20:40)
[2017-11-24] MEDS: SENOKOT S TAB PO (10:37)
[2017-11-24] MEDS: SPIRONOLACTONE 25 MG TAB PO (13:19)
[2017-11-24] MEDS: guaiFENesin ER 600 MG TAB PO ×2 (14:54→20:40)
[2017-11-24] MEDS: NORTRIPTYLINE 25 MG CAP PO (20:39)
[2017-11-24] MEDS: ACETAMINOPHEN TAB 650MG DOSE (2X325MG) PO (20:40)
[2017-11-25] MEDS: FUROSEMIDE 40 MG/4 ML VIAL (J1940) IV ×4 (00:39→23:57)
[2017-11-25] MEDS: LEVOTHYROXINE 88MCG TABLET (0.088 MG) PO (05:06)
[2017-11-25 05:15] LABS: HEMATOCRIT 41.9 % (36.0-47.0); HEMOGLOBIN 13.7 g/dl (12.0-16.0); MEAN CORPUSCULAR HGB CONC 32.7 g/dl (32.0-36.5); PLATELET COUNT, AUTOMATED 140 10^3/uL (150-450); RED BLOOD COUNT 4.15 10^6/uL (4.00-5.40); RED CELL DISTRIBUTION WIDTH 15.4 % (11.5-14.5); WHITE BLOOD COUNT 5.8 10^3/uL (4.0-10.0)
[2017-11-25 05:30] LABS: ANION GAP 7 MEQ/L (8-16); BLOOD UREA NITROGEN 47 MG/DL (7-18); CALCIUM LEVEL 8.2 MG/DL (8.8-10.2); CARBON DIOXIDE LEVEL 32 MEQ/L (21-32); CHLORIDE LEVEL 105 MEQ/L (98-107); CREATININE FOR GFR 1.21 MG/DL (0.55-1.30); GLOMERULAR FILTRATION RATE 44.7 (>32); GLUCOSE, FASTING 82 MG/DL (70-100); NT-PRO BNP 28772 PG/ML (<450); POTASSIUM SERUM 3.9 MEQ/L (3.5-5.1); SODIUM LEVEL 144 MEQ/L (136-145)
[2017-11-25] MEDS: FORMOTEROL FUMARATE 20 MCG/2 ML INHALATION SOLUTION (PERFOROMIST) INH ×2 (08:18→21:40)
[2017-11-25] MEDS: guaiFENesin ER 600 MG TAB PO ×2 (08:47→20:27)
[2017-11-25] MEDS: APIXABAN 2.5 MG TAB (ELIQUIS) PO ×2 (08:47→20:27)
[2017-11-25] MEDS: DOCUSATE SODIUM 100 MG CAP PO (08:47)
[2017-11-25] MEDS: METOPROLOL TART 50 MG TAB PO ×2 (08:47→20:27)
[2017-11-25] MEDS: DOXYCYCLINE HYCLATE 100 MG TAB PO ×2 (08:47→20:27)
[2017-11-25] MEDS: SPIRONOLACTONE 25 MG TAB PO (08:47)
[2017-11-25] MEDS: MIRALAX *UNIT DOSE* 17GM PACKET PO ×2 (08:48→20:26)
[2017-11-25] MEDS: NORTRIPTYLINE 25 MG CAP PO (20:26)
[2017-11-26] MEDS: LEVOTHYROXINE 88MCG TABLET (0.088 MG) PO (05:25)
[2017-11-26 05:45] LABS: ANION GAP 7 MEQ/L (8-16); BLOOD UREA NITROGEN 45 MG/DL (7-18); CALCIUM LEVEL 8.9 MG/DL (8.8-10.2); CARBON DIOXIDE LEVEL 35 MEQ/L (21-32); CHLORIDE LEVEL 101 MEQ/L (98-107); CREATININE FOR GFR 1.15 MG/DL (0.55-1.30); GLOMERULAR FILTRATION RATE 47.4 (>32); GLUCOSE, FASTING 76 MG/DL (70-100); SODIUM LEVEL 143 MEQ/L (136-145)
[2017-11-26] MEDS: FUROSEMIDE 40 MG/4 ML VIAL (J1940) IV ×2 (07:45→15:11)
[2017-11-26] MEDS: FORMOTEROL FUMARATE 20 MCG/2 ML INHALATION SOLUTION (PERFOROMIST) INH ×2 (07:49→19:55)
[2017-11-26] MEDS: DOXYCYCLINE HYCLATE 100 MG TAB PO ×2 (08:24→20:04)
[2017-11-26] MEDS: METOPROLOL TART 50 MG TAB PO ×2 (08:24→20:04)
[2017-11-26] MEDS: MIRALAX *UNIT DOSE* 17GM PACKET PO ×2 (08:25→20:04)
[2017-11-26] MEDS: DOCUSATE SODIUM 100 MG CAP PO (08:25)
[2017-11-26] MEDS: DIGOXIN 0.125 MG TAB PO (08:25)
[2017-11-26] MEDS: guaiFENesin ER 600 MG TAB PO ×2 (08:25→20:04)
[2017-11-26] MEDS: APIXABAN 2.5 MG TAB (ELIQUIS) PO ×2 (08:25→20:01)
[2017-11-26] MEDS: SPIRONOLACTONE 12.5MG PER 1/2 TABLET PO (11:01)
[2017-11-26] MEDS: VALSARTAN 40MG TABLET (DIOVAN) PO (11:01)
[2017-11-26] MEDS: NORTRIPTYLINE 25 MG CAP PO (20:08)
[2017-11-27] MEDS: FUROSEMIDE 40 MG/4 ML VIAL (J1940) IV ×3 (00:09→17:01)
[2017-11-27] MEDS: LEVOTHYROXINE 88MCG TABLET (0.088 MG) PO (05:06)
[2017-11-27 05:40] LABS: ANION GAP 8 MEQ/L (8-16); BLOOD UREA NITROGEN 55 MG/DL (7-18); CALCIUM LEVEL 8.2 MG/DL (8.8-10.2); CARBON DIOXIDE LEVEL 32 MEQ/L (21-32); CHLORIDE LEVEL 102 MEQ/L (98-107); GLOMERULAR FILTRATION RATE 34.9 (>32); GLUCOSE, FASTING 76 MG/DL (70-100); POTASSIUM SERUM 3.6 MEQ/L (3.5-5.1); SODIUM LEVEL 142 MEQ/L (136-145)
[2017-11-27] MEDS: FORMOTEROL FUMARATE 20 MCG/2 ML INHALATION SOLUTION (PERFOROMIST) INH ×2 (07:47→21:03)
[2017-11-27] MEDS: guaiFENesin ER 600 MG TAB PO ×2 (08:49→20:36)
[2017-11-27] MEDS: APIXABAN 2.5 MG TAB (ELIQUIS) PO ×2 (08:49→20:36)
[2017-11-27] MEDS: DOXYCYCLINE HYCLATE 100 MG TAB PO ×2 (08:49→20:36)
[2017-11-27] MEDS: METOPROLOL TART 50 MG TAB PO ×2 (08:50→20:36)
[2017-11-27] MEDS: SPIRONOLACTONE 12.5MG PER 1/2 TABLET PO (08:50)
[2017-11-27] MEDS: DOCUSATE SODIUM 100 MG CAP PO (08:50)
[2017-11-27] MEDS: MIRALAX *UNIT DOSE* 17GM PACKET PO (08:51)
[2017-11-27] MEDS: VALSARTAN 40MG TABLET (DIOVAN) PO (08:51)
[2017-11-27] MEDS: NORTRIPTYLINE 25 MG CAP PO (20:36)
[2017-11-28] MEDS: LEVOTHYROXINE 88MCG TABLET (0.088 MG) PO (05:20)
[2017-11-28 06:20] LABS: ANION GAP 8 MEQ/L (8-16); BLOOD UREA NITROGEN 67 MG/DL (7-18); CALCIUM LEVEL 8.4 MG/DL (8.8-10.2); CARBON DIOXIDE LEVEL 33 MEQ/L (21-32); CHLORIDE LEVEL 98 MEQ/L (98-107); CREATININE FOR GFR 2.17 MG/DL (0.55-1.30); GLOMERULAR FILTRATION RATE 22.8 (>32); GLUCOSE, FASTING 78 MG/DL (70-100); POTASSIUM SERUM 3.7 MEQ/L (3.5-5.1); SODIUM LEVEL 139 MEQ/L (136-145)
[2017-11-28] MEDS: FORMOTEROL FUMARATE 20 MCG/2 ML INHALATION SOLUTION (PERFOROMIST) INH ×2 (07:45→20:13)
[2017-11-28] MEDS: DIGOXIN 0.125 MG TAB PO (08:50)
[2017-11-28] MEDS: guaiFENesin ER 600 MG TAB PO ×2 (08:50→20:47)
[2017-11-28] MEDS: METOPROLOL TART 50 MG TAB PO ×2 (08:50→20:47)
[2017-11-28] MEDS: APIXABAN 2.5 MG TAB (ELIQUIS) PO ×2 (08:51→20:47)
[2017-11-28] MEDS: DOXYCYCLINE HYCLATE 100 MG TAB PO ×2 (08:52→20:46)
[2017-11-28] MEDS: SENOKOT S TAB PO (20:46)
[2017-11-28] MEDS: NORTRIPTYLINE 25 MG CAP PO (20:47)
[2017-11-29] MEDS: LEVOTHYROXINE 88MCG TABLET (0.088 MG) PO (05:47)
[2017-11-29 06:18] LABS: ANION GAP 11 MEQ/L (8-16); BLOOD UREA NITROGEN 87 MG/DL (7-18); CALCIUM LEVEL 8.1 MG/DL (8.8-10.2); CARBON DIOXIDE LEVEL 29 MEQ/L (21-32); CHLORIDE LEVEL 99 MEQ/L (98-107); CREATININE FOR GFR 2.63 MG/DL (0.55-1.30); GLOMERULAR FILTRATION RATE 18.2 (>32); GLUCOSE, FASTING 78 MG/DL (70-100); SODIUM LEVEL 139 MEQ/L (136-145)
[2017-11-29] MEDS: FORMOTEROL FUMARATE 20 MCG/2 ML INHALATION SOLUTION (PERFOROMIST) INH ×2 (07:12→20:31)
[2017-11-29] MEDS: DOXYCYCLINE HYCLATE 100 MG TAB PO ×2 (11:05→21:13)
[2017-11-29] MEDS: APIXABAN 2.5 MG TAB (ELIQUIS) PO ×2 (11:05→21:13)
[2017-11-29] MEDS: guaiFENesin ER 600 MG TAB PO ×2 (11:05→21:13)
[2017-11-29] MEDS: METOPROLOL TART 50 MG TAB PO ×2 (11:05→21:13)
[2017-11-29 14:16] LABS: HEMATOCRIT 47.7 % (36.0-47.0); HEMOGLOBIN 15.9 g/dl (12.0-16.0); MEAN CORPUSCULAR HEMOGLOBIN 32.9 pg (27.0-33.0); MEAN CORPUSCULAR HGB CONC 33.3 g/dl (32.0-36.5); MEAN CORPUSCULAR VOLUME 98.8 fl (80.0-96.0); PLATELET COUNT, AUTOMATED 162 10^3/uL (150-450); RED BLOOD COUNT 4.83 10^6/uL (4.00-5.40); RED CELL DISTRIBUTION WIDTH 14.9 % (11.5-14.5); WHITE BLOOD COUNT 9.6 10^3/uL (4.0-10.0)
[2017-11-29] MEDS: NORTRIPTYLINE 25 MG CAP PO (21:12)
[2017-11-30 04:31] LABS: ANION GAP 9 MEQ/L (8-16); BLOOD UREA NITROGEN 106 MG/DL (7-18); CALCIUM LEVEL 8.5 MG/DL (8.8-10.2); CARBON DIOXIDE LEVEL 30 MEQ/L (21-32); CHLORIDE LEVEL 98 MEQ/L (98-107); CREATININE FOR GFR 3.25 MG/DL (0.55-1.30); GLOMERULAR FILTRATION RATE 14.3 (>32); GLUCOSE, FASTING 82 MG/DL (70-100); SODIUM LEVEL 137 MEQ/L (136-145)
[2017-11-30] MEDS: LEVOTHYROXINE 88MCG TABLET (0.088 MG) PO (05:08)
[2017-11-30] MEDS: FORMOTEROL FUMARATE 20 MCG/2 ML INHALATION SOLUTION (PERFOROMIST) INH ×2 (07:11→20:08)
[2017-11-30] MEDS: guaiFENesin ER 600 MG TAB PO ×2 (09:35→20:29)
[2017-11-30] MEDS: APIXABAN 2.5 MG TAB (ELIQUIS) PO ×2 (09:35→20:29)
[2017-11-30] MEDS: DOXYCYCLINE HYCLATE 100 MG TAB PO ×2 (09:36→20:29)
[2017-11-30] MEDS: METOPROLOL TART 50 MG TAB PO ×2 (09:37→20:29)
[2017-11-30 13:25] LABS: SODIUM,RANDOM URINE 11 MEQ/L
[2017-11-30 13:26] LABS: APPEARANCE, URINE CLOUDY (CLEAR); BACTERIA, URINE AUTO 1+ (NEGATIVE); BILIRUBIN, URINE AUTO NEGATIVE (NEGATIVE); BLOOD, URINE BLOOD 1+ (NEGATIVE); COLOR, URINE YELLOW (YELLOW); GLUCOSE, URINE (UA) AUTO NEGATIVE (NEGATIVE); KETONE, URINE AUTO NEGATIVE (NEGATIVE); LEUKOCYTE ESTERASE, URINE AUTO 3+ (NEGATIVE); NITRITE, URINE AUTO NEGATIVE (NEGATIVE); PROTEIN, URINE AUTO NEGATIVE (NEGATIVE); RBC, URINE AUTO 14 /HPF (0-3); SPECIFIC GRAVITY URINE AUTO 1.014 (1.002-1.035); SQUAMOUS EPITHELIAL CELL UR AU 3 /HPF (0-6); UROBILINOGEN, URINE AUTO 0.2 mg/dL (0.0-2.0); WBC, URINE AUTO 138 /HPF (0-3)
[2017-11-30 14:24] LABS: CHLORIDE,RANDOM URINE < 10 MEQ/L
[2017-11-30] MEDS ORDERED: NS 500 ML IV (17:15)
[2017-11-30] MEDS: SODIUM CHLORIDE 0.9% 1000 ML IV (17:45)
[2017-11-30] MEDS: NORTRIPTYLINE 25 MG CAP PO (20:29)
[2017-11-30] MEDS: NS 250 ML IV (21:30)
[2017-12-01 04:22] LABS: ANION GAP 13 MEQ/L (8-16); BLOOD UREA NITROGEN 113 MG/DL (7-18); CALCIUM LEVEL 7.9 MG/DL (8.8-10.2); CARBON DIOXIDE LEVEL 27 MEQ/L (21-32); CHLORIDE LEVEL 99 MEQ/L (98-107); CREATININE FOR GFR 2.96 MG/DL (0.55-1.30); GLOMERULAR FILTRATION RATE 15.9 (>32); GLUCOSE, FASTING 82 MG/DL (70-100); POTASSIUM SERUM 3.8 MEQ/L (3.5-5.1); SODIUM LEVEL 139 MEQ/L (136-145)
[2017-12-01] MEDS: LEVOTHYROXINE 88MCG TABLET (0.088 MG) PO (05:59)
[2017-12-01] MEDS: FORMOTEROL FUMARATE 20 MCG/2 ML INHALATION SOLUTION (PERFOROMIST) INH ×2 (07:04→20:32)
[2017-12-01] MEDS: guaiFENesin ER 600 MG TAB PO ×2 (08:55→20:49)
[2017-12-01] MEDS: APIXABAN 2.5 MG TAB (ELIQUIS) PO ×2 (08:55→20:49)
[2017-12-01] MEDS: DOXYCYCLINE HYCLATE 100 MG TAB PO ×2 (08:55→20:49)
[2017-12-01] MEDS: METOPROLOL TART 50 MG TAB PO ×2 (08:56→20:49)
[2017-12-01] MEDS: ISOSORBIDE DIN (ISORDIL) 10 MG TAB PO ×2 (11:54→20:50)
[2017-12-01] MEDS: **hydrALAZINE** 10 MG TAB PO ×2 (11:55→20:49)
[2017-12-01] MEDS: NS 500 ML IV (19:00)
[2017-12-01] MEDS: NORTRIPTYLINE 25 MG CAP PO (20:49)
[2017-12-01] MEDS: NYSTATIN 100,000 UNITS/GM TOPICAL PWD 15 GM TOP (20:50)
[2017-12-02] MEDS: ISOSORBIDE DIN (ISORDIL) 10 MG TAB PO ×3 (04:58→21:04)
[2017-12-02] MEDS: **hydrALAZINE** 10 MG TAB PO ×3 (04:58→21:03)
[2017-12-02] MEDS: LEVOTHYROXINE 88MCG TABLET (0.088 MG) PO (05:00)
[2017-12-02 05:30] LABS: ANION GAP 12 MEQ/L (8-16); BLOOD UREA NITROGEN 118 MG/DL (7-18); CALCIUM LEVEL 8.1 MG/DL (8.8-10.2); CARBON DIOXIDE LEVEL 26 MEQ/L (21-32); CHLORIDE LEVEL 101 MEQ/L (98-107); CREATININE FOR GFR 2.34 MG/DL (0.55-1.30); GLOMERULAR FILTRATION RATE 20.9 (>32); GLUCOSE, FASTING 81 MG/DL (70-100); POTASSIUM SERUM 3.3 MEQ/L (3.5-5.1); SODIUM LEVEL 139 MEQ/L (136-145)
[2017-12-02] MEDS: FORMOTEROL FUMARATE 20 MCG/2 ML INHALATION SOLUTION (PERFOROMIST) INH ×2 (08:45→19:38)
[2017-12-02 09:23] LABS: BASO % 0.3 % (0.0-1.0); EOS % 0.4 % (0.0-3.0); HEMATOCRIT 38.1 % (36.0-47.0); HEMOGLOBIN 12.9 g/dl (12.0-16.0); IMMATURE GRANULOCYTE % 0.3 % (0-3.0); LYMPH # 0.8 10^3/uL (1.5-4.5); LYMPH % 11.2 % (24.0-44.0); MEAN CORPUSCULAR HEMOGLOBIN 32.2 pg (27.0-33.0); MEAN CORPUSCULAR HGB CONC 33.9 g/dl (32.0-36.5); MONO # 0.9 10^3/uL (0.0-0.8); MONO % 13.2 % (0.0-5.0); NEUTROPHILS # 5.3 10^3/uL (1.8-7.7); NEUTROPHILS % 74.6 % (36.0-66.0); PLATELET COUNT, AUTOMATED 193 10^3/uL (150-450); RED BLOOD COUNT 4.01 10^6/uL (4.00-5.40); RED CELL DISTRIBUTION WIDTH 14.6 % (11.5-14.5); WHITE BLOOD COUNT 7.1 10^3/uL (4.0-10.0)
[2017-12-02] MEDS: POTASSIUM CHLORIDE 10 MEQ SR TABLET PO (10:39)
[2017-12-02] MEDS: DOXYCYCLINE HYCLATE 100 MG TAB PO ×2 (10:40→21:04)
[2017-12-02] MEDS: METOPROLOL TART 50 MG TAB PO ×2 (10:41→21:04)
[2017-12-02] MEDS: APIXABAN 2.5 MG TAB (ELIQUIS) PO ×2 (10:42→21:04)
[2017-12-02] MEDS: guaiFENesin ER 600 MG TAB PO ×2 (10:43→21:04)
[2017-12-02] MEDS: NYSTATIN 100,000 UNITS/GM TOPICAL PWD 15 GM TOP ×2 (10:44→21:04)
[2017-12-02] MEDS ORDERED: SLF 3 ML SYR IV (11:15)
[2017-12-02] MEDS: SLF 3 ML SYR IV ×2 (14:52→21:05)
[2017-12-02] MEDS: NORTRIPTYLINE 25 MG CAP PO (21:03)
[2017-12-03] MEDS: **hydrALAZINE** 10 MG TAB PO ×3 (04:54→19:26)
[2017-12-03] MEDS: ISOSORBIDE DIN (ISORDIL) 10 MG TAB PO ×3 (04:55→19:26)
[2017-12-03] MEDS: LEVOTHYROXINE 88MCG TABLET (0.088 MG) PO (05:00)
[2017-12-03] MEDS: SLF 3 ML SYR IV ×3 (05:00→21:10)
[2017-12-03 06:19] LABS: HEMATOCRIT 35.8 % (36.0-47.0); HEMOGLOBIN 12.4 g/dl (12.0-16.0); MEAN CORPUSCULAR HEMOGLOBIN 32.8 pg (27.0-33.0); MEAN CORPUSCULAR HGB CONC 34.6 g/dl (32.0-36.5); MEAN CORPUSCULAR VOLUME 94.7 fl (80.0-96.0); PLATELET COUNT, AUTOMATED 186 10^3/uL (150-450); RED BLOOD COUNT 3.78 10^6/uL (4.00-5.40); RED CELL DISTRIBUTION WIDTH 14.5 % (11.5-14.5); WHITE BLOOD COUNT 7.6 10^3/uL (4.0-10.0)
[2017-12-03 06:31] LABS: ANION GAP 13 MEQ/L (8-16); BLOOD UREA NITROGEN 124 MG/DL (7-18); CALCIUM LEVEL 8.2 MG/DL (8.8-10.2); CARBON DIOXIDE LEVEL 25 MEQ/L (21-32); CHLORIDE LEVEL 101 MEQ/L (98-107); CREATININE FOR GFR 2.36 MG/DL (0.55-1.30); GLOMERULAR FILTRATION RATE 20.7 (>32); GLUCOSE, FASTING 84 MG/DL (70-100); POTASSIUM SERUM 3.4 MEQ/L (3.5-5.1); SODIUM LEVEL 139 MEQ/L (136-145)
[2017-12-03] MEDS: FORMOTEROL FUMARATE 20 MCG/2 ML INHALATION SOLUTION (PERFOROMIST) INH ×2 (07:14→18:07)
[2017-12-03] MEDS: APIXABAN 2.5 MG TAB (ELIQUIS) PO ×2 (08:49→21:10)
[2017-12-03] MEDS: METOPROLOL TART 50 MG TAB PO ×2 (08:50→21:12)
[2017-12-03] MEDS: NYSTATIN 100,000 UNITS/GM TOPICAL PWD 15 GM TOP ×2 (08:50→21:10)
[2017-12-03] MEDS: guaiFENesin ER 600 MG TAB PO ×2 (08:50→21:10)
[2017-12-03] MEDS: POTASSIUM CHLORIDE 10% LIQ 20 MEQ/15 ML UDC PO (11:40)
[2017-12-03] MEDS: TAMSULOSIN 0.4 MG CAP PO (11:41)
[2017-12-03] MEDS ORDERED: ISOVUE-300 61% 50ML VIAL (Q9967) As Ordered (12:25)
[2017-12-03] MEDS: NORTRIPTYLINE 25 MG CAP PO (21:10)
[2017-12-03] MEDS: FUROSEMIDE 40 MG/4 ML VIAL (J1940) IV (21:20)
[2017-12-04] MEDS: ISOSORBIDE DIN (ISORDIL) 10 MG TAB PO ×3 (03:39→19:57)
[2017-12-04] MEDS: SLF 3 ML SYR IV ×3 (03:39→21:09)
[2017-12-04] MEDS: **hydrALAZINE** 10 MG TAB PO ×3 (03:39→19:56)
[2017-12-04] MEDS: LEVOTHYROXINE 88MCG TABLET (0.088 MG) PO (05:08)
[2017-12-04 06:24] LABS: ANION GAP 12 MEQ/L (8-16); BLOOD UREA NITROGEN 138 MG/DL (7-18); CALCIUM LEVEL 7.7 MG/DL (8.8-10.2); CARBON DIOXIDE LEVEL 23 MEQ/L (21-32); CHLORIDE LEVEL 102 MEQ/L (98-107); CREATININE FOR GFR 2.65 MG/DL (0.55-1.30); GLOMERULAR FILTRATION RATE 18.1 (>32); GLUCOSE, FASTING 95 MG/DL (70-100); POTASSIUM SERUM 3.6 MEQ/L (3.5-5.1); SODIUM LEVEL 137 MEQ/L (136-145)
[2017-12-04] MEDS: FORMOTEROL FUMARATE 20 MCG/2 ML INHALATION SOLUTION (PERFOROMIST) INH ×2 (07:49→20:38)
[2017-12-04] MEDS: TAMSULOSIN 0.4 MG CAP PO (09:07)
[2017-12-04] MEDS: METOPROLOL TART 50 MG TAB PO ×2 (09:07→21:00)
[2017-12-04] MEDS: APIXABAN 2.5 MG TAB (ELIQUIS) PO ×2 (09:07→21:08)
[2017-12-04] MEDS: NYSTATIN 100,000 UNITS/GM TOPICAL PWD 15 GM TOP ×2 (09:08→21:08)
[2017-12-04] MEDS: guaiFENesin ER 600 MG TAB PO ×2 (09:08→21:08)
[2017-12-04] MEDS ORDERED: HEPARIN 1,000 UNITS/ML 10ML VIAL (FOR RADIOLOGY& DIALYSIS ONLY) As Ordered (12:44)
[2017-12-04] MEDS ORDERED: ISOVUE-300 61% 50ML VIAL (Q9967) As Ordered (12:44)
[2017-12-04] MEDS: ACETAMINOPHEN TAB 650MG DOSE (2X325MG) PO (16:03)
[2017-12-04] MEDS ORDERED: SODIUM CHLORIDE NASAL 0.65% SPRAY BTL (OCEAN) (17:00)
[2017-12-04] MEDS: NORTRIPTYLINE 25 MG CAP PO (21:08)
[2017-12-05] MEDS: ISOSORBIDE DIN (ISORDIL) 10 MG TAB PO ×3 (04:00→20:01)
[2017-12-05] MEDS: **hydrALAZINE** 10 MG TAB PO ×3 (04:00→20:02)
[2017-12-05] MEDS: LEVOTHYROXINE 88MCG TABLET (0.088 MG) PO (05:38)
[2017-12-05] MEDS: SLF 3 ML SYR IV ×3 (05:38→20:02)
[2017-12-05 05:39] LABS: HEMATOCRIT 35.5 % (36.0-47.0); HEMOGLOBIN 12.4 g/dl (12.0-16.0); MEAN CORPUSCULAR HEMOGLOBIN 32.4 pg (27.0-33.0); MEAN CORPUSCULAR HGB CONC 34.9 g/dl (32.0-36.5); MEAN CORPUSCULAR VOLUME 92.7 fl (80.0-96.0); PLATELET COUNT, AUTOMATED 191 10^3/uL (150-450); RED BLOOD COUNT 3.83 10^6/uL (4.00-5.40); RED CELL DISTRIBUTION WIDTH 14.3 % (11.5-14.5)
[2017-12-05 05:55] LABS: ANION GAP 12 MEQ/L (8-16); BLOOD UREA NITROGEN 131 MG/DL (7-18); CALCIUM LEVEL 8.2 MG/DL (8.8-10.2); CARBON DIOXIDE LEVEL 24 MEQ/L (21-32); CHLORIDE LEVEL 102 MEQ/L (98-107); CREATININE FOR GFR 2.44 MG/DL (0.55-1.30); GLOMERULAR FILTRATION RATE 19.9 (>32); GLUCOSE, FASTING 71 MG/DL (70-100); POTASSIUM SERUM 3.5 MEQ/L (3.5-5.1); SODIUM LEVEL 138 MEQ/L (136-145)
[2017-12-05] MEDS: FORMOTEROL FUMARATE 20 MCG/2 ML INHALATION SOLUTION (PERFOROMIST) INH ×2 (07:10→20:29)
[2017-12-05] MEDS: NYSTATIN 100,000 UNITS/GM TOPICAL PWD 15 GM TOP ×2 (10:08→20:00)
[2017-12-05] MEDS: TAMSULOSIN 0.4 MG CAP PO (10:09)
[2017-12-05] MEDS: METOPROLOL TART 50 MG TAB PO ×2 (10:09→20:01)
[2017-12-05] MEDS: guaiFENesin ER 600 MG TAB PO ×2 (10:09→20:01)
[2017-12-05] MEDS: APIXABAN 2.5 MG TAB (ELIQUIS) PO ×2 (10:09→20:02)
[2017-12-05] MEDS: NORTRIPTYLINE 25 MG CAP PO (20:00)
[2017-12-06] MEDS: **hydrALAZINE** 10 MG TAB PO ×3 (03:50→20:03)
[2017-12-06] MEDS: ISOSORBIDE DIN (ISORDIL) 10 MG TAB PO ×3 (03:50→20:03)
[2017-12-06] MEDS: LEVOTHYROXINE 88MCG TABLET (0.088 MG) PO (05:40)
[2017-12-06] MEDS: SLF 3 ML SYR IV ×3 (05:40→21:09)
[2017-12-06] MEDS: METOPROLOL TART 50 MG TAB PO ×2 (09:08→21:08)
[2017-12-06] MEDS: TAMSULOSIN 0.4 MG CAP PO (09:08)
[2017-12-06] MEDS: guaiFENesin ER 600 MG TAB PO ×2 (09:09→21:09)
[2017-12-06] MEDS: APIXABAN 2.5 MG TAB (ELIQUIS) PO ×2 (09:09→21:09)
[2017-12-06] MEDS: NYSTATIN 100,000 UNITS/GM TOPICAL PWD 15 GM TOP ×2 (09:09→21:09)
[2017-12-06 10:04] LABS: ALBUMIN 2.6 GM/DL (3.2-5.2); ANION GAP 14 MEQ/L (8-16); BLOOD UREA NITROGEN 140 MG/DL (7-18); CALCIUM LEVEL 7.8 MG/DL (8.8-10.2); CARBON DIOXIDE LEVEL 24 MEQ/L (21-32); CHLORIDE LEVEL 101 MEQ/L (98-107); CREATININE FOR GFR 2.26 MG/DL (0.55-1.30); GLOMERULAR FILTRATION RATE 21.7 (>32); GLUCOSE, FASTING 84 MG/DL (70-100); PHOSPHORUS LEVEL 5.9 MG/DL (2.5-4.9); POTASSIUM SERUM 3.5 MEQ/L (3.5-5.1); SODIUM LEVEL 139 MEQ/L (136-145)
[2017-12-06] MEDS: FORMOTEROL FUMARATE 20 MCG/2 ML INHALATION SOLUTION (PERFOROMIST) INH ×2 (11:37→20:38)
[2017-12-06] MEDS: NORTRIPTYLINE 25 MG CAP PO (21:09)
[2017-12-07] MEDS: **hydrALAZINE** 10 MG TAB PO ×3 (04:10→21:07)
[2017-12-07] MEDS: ISOSORBIDE DIN (ISORDIL) 10 MG TAB PO ×3 (04:10→21:06)
[2017-12-07 05:03] LABS: HEMATOCRIT 32.4 % (36.0-47.0); HEMOGLOBIN 11.5 g/dl (12.0-16.0); MEAN CORPUSCULAR HEMOGLOBIN 32.5 pg (27.0-33.0); MEAN CORPUSCULAR HGB CONC 35.5 g/dl (32.0-36.5); MEAN CORPUSCULAR VOLUME 91.5 fl (80.0-96.0); PLATELET COUNT, AUTOMATED 180 10^3/uL (150-450); RED BLOOD COUNT 3.54 10^6/uL (4.00-5.40); WHITE BLOOD COUNT 5.4 10^3/uL (4.0-10.0)
[2017-12-07 05:24] LABS: ALBUMIN 2.3 GM/DL (3.2-5.2); ANION GAP 13 MEQ/L (8-16); BLOOD UREA NITROGEN 142 MG/DL (7-18); CALCIUM LEVEL 7.7 MG/DL (8.8-10.2); CARBON DIOXIDE LEVEL 24 MEQ/L (21-32); CHLORIDE LEVEL 100 MEQ/L (98-107); GLOMERULAR FILTRATION RATE 19.3 (>32); GLUCOSE, FASTING 81 MG/DL (70-100); PHOSPHORUS LEVEL 6.4 MG/DL (2.5-4.9); POTASSIUM SERUM 3.4 MEQ/L (3.5-5.1); SODIUM LEVEL 137 MEQ/L (136-145)
[2017-12-07] MEDS: SLF 3 ML SYR IV ×3 (06:07→21:07)
[2017-12-07] MEDS: LEVOTHYROXINE 88MCG TABLET (0.088 MG) PO (06:07)
[2017-12-07] MEDS: FORMOTEROL FUMARATE 20 MCG/2 ML INHALATION SOLUTION (PERFOROMIST) INH ×2 (06:55→20:28)
[2017-12-07] MEDS: guaiFENesin ER 600 MG TAB PO ×2 (08:19→21:05)
[2017-12-07] MEDS: METOPROLOL TART 50 MG TAB PO ×2 (08:19→21:06)
[2017-12-07] MEDS: TAMSULOSIN 0.4 MG CAP PO (08:19)
[2017-12-07] MEDS: NYSTATIN 100,000 UNITS/GM TOPICAL PWD 15 GM TOP ×2 (08:19→21:07)
[2017-12-07] MEDS: APIXABAN 2.5 MG TAB (ELIQUIS) PO ×2 (08:19→21:05)
[2017-12-07] MEDS: LIDOCAINE 1% MDV 20ML VIAL As Ordered (16:40)
[2017-12-07] MEDS: BUPIVACAINE HCL 0.5% 10 ML VIAL As Ordered (16:40)
[2017-12-07] MEDS: HEPARIN SOD (PORCINE) 5000 UNITS/ML VIAL As Ordered (16:40)
[2017-12-07] MEDS ORDERED: fentaNYL 100 MCG/2 ML INJECTION (J3010) As Ordered (18:47)
[2017-12-07] MEDS ORDERED: MIDAZOLAM INJ 2 MG/2 ML VIAL (J2250) As Ordered (18:47)
[2017-12-07] MEDS ORDERED: LIDOCAINE 2% INJ 100 MG/5 ML SDV (FOR ANES.) As Ordered (18:47)
[2017-12-07] MEDS ORDERED: PROPOFOL 200 MG/20 ML VIAL As Ordered (18:47)
[2017-12-07] MEDS: NORTRIPTYLINE 25 MG CAP PO (21:06)
[2017-12-07] MEDS: POTASSIUM CHLORIDE 10 MEQ SR TABLET PO (21:06)
[2017-12-08] MEDS: **hydrALAZINE** 10 MG TAB PO ×3 (04:59→20:11)
[2017-12-08] MEDS: SLF 3 ML SYR IV ×3 (05:00→21:01)
[2017-12-08] MEDS: LEVOTHYROXINE 88MCG TABLET (0.088 MG) PO (05:00)
[2017-12-08] MEDS: ISOSORBIDE DIN (ISORDIL) 10 MG TAB PO ×3 (05:00→20:11)
[2017-12-08 06:38] LABS: HEMATOCRIT 32.3 % (36.0-47.0); HEMOGLOBIN 11.4 g/dl (12.0-16.0); MEAN CORPUSCULAR HGB CONC 35.3 g/dl (32.0-36.5); MEAN CORPUSCULAR VOLUME 93.6 fl (80.0-96.0); PLATELET COUNT, AUTOMATED 168 10^3/uL (150-450); RED BLOOD COUNT 3.45 10^6/uL (4.00-5.40); WHITE BLOOD COUNT 5.3 10^3/uL (4.0-10.0)
[2017-12-08 06:56] LABS: ALBUMIN 2.4 GM/DL (3.2-5.2); ANION GAP 14 MEQ/L (8-16); BLOOD UREA NITROGEN 140 MG/DL (7-18); CALCIUM LEVEL 7.9 MG/DL (8.8-10.2); CARBON DIOXIDE LEVEL 21 MEQ/L (21-32); CHLORIDE LEVEL 102 MEQ/L (98-107); CREATININE FOR GFR 2.21 MG/DL (0.55-1.30); GLOMERULAR FILTRATION RATE 22.3 (>32); GLUCOSE, FASTING 70 MG/DL (70-100); PHOSPHORUS LEVEL 5.9 MG/DL (2.5-4.9); POTASSIUM SERUM 3.5 MEQ/L (3.5-5.1); SODIUM LEVEL 137 MEQ/L (136-145)
[2017-12-08] MEDS: FORMOTEROL FUMARATE 20 MCG/2 ML INHALATION SOLUTION (PERFOROMIST) INH ×2 (07:45→20:19)
[2017-12-08] MEDS: NYSTATIN 100,000 UNITS/GM TOPICAL PWD 15 GM TOP ×2 (09:00→20:10)
[2017-12-08] MEDS: guaiFENesin ER 600 MG TAB PO ×2 (11:16→20:10)
[2017-12-08] MEDS: METOPROLOL TART 50 MG TAB PO ×2 (11:17→20:11)
[2017-12-08] MEDS: POTASSIUM CHLORIDE 10 MEQ SR TABLET PO ×2 (11:17→20:11)
[2017-12-08] MEDS: APIXABAN 2.5 MG TAB (ELIQUIS) PO ×2 (11:17→20:10)
[2017-12-08] MEDS: TAMSULOSIN 0.4 MG CAP PO (11:17)
[2017-12-08] MEDS: NORTRIPTYLINE 25 MG CAP PO (20:10)
[2017-12-09] MEDS: **hydrALAZINE** 10 MG TAB PO ×3 (04:04→20:30)
[2017-12-09] MEDS: ISOSORBIDE DIN (ISORDIL) 10 MG TAB PO ×3 (04:05→20:30)
[2017-12-09 06:11] LABS: HEMATOCRIT 34.8 % (36.0-47.0); HEMOGLOBIN 12.3 g/dl (12.0-16.0); MEAN CORPUSCULAR HEMOGLOBIN 32.8 pg (27.0-33.0); MEAN CORPUSCULAR HGB CONC 35.3 g/dl (32.0-36.5); MEAN CORPUSCULAR VOLUME 92.8 fl (80.0-96.0); PLATELET COUNT, AUTOMATED 183 10^3/uL (150-450); RED BLOOD COUNT 3.75 10^6/uL (4.00-5.40); RED CELL DISTRIBUTION WIDTH 14.1 % (11.5-14.5); WHITE BLOOD COUNT 7.5 10^3/uL (4.0-10.0)
[2017-12-09] MEDS: APIXABAN 2.5 MG TAB (ELIQUIS) PO ×2 (06:17→20:28)
[2017-12-09] MEDS: LEVOTHYROXINE 88MCG TABLET (0.088 MG) PO (06:17)
[2017-12-09] MEDS: TAMSULOSIN 0.4 MG CAP PO (06:17)
[2017-12-09] MEDS: guaiFENesin ER 600 MG TAB PO ×2 (06:17→20:28)
[2017-12-09] MEDS: METOPROLOL TART 50 MG TAB PO ×2 (06:18→22:08)
[2017-12-09] MEDS: SLF 3 ML SYR IV ×3 (06:19→22:09)
[2017-12-09] MEDS: POTASSIUM CHLORIDE 10 MEQ SR TABLET PO ×2 (06:19→20:29)
[2017-12-09] MEDS: NYSTATIN 100,000 UNITS/GM TOPICAL PWD 15 GM TOP ×2 (06:29→20:31)
[2017-12-09 06:47] LABS: ALBUMIN 2.4 GM/DL (3.2-5.2); ANION GAP 13 MEQ/L (8-16); BLOOD UREA NITROGEN 150 MG/DL (7-18); CALCIUM LEVEL 8.1 MG/DL (8.8-10.2); CARBON DIOXIDE LEVEL 20 MEQ/L (21-32); CHLORIDE LEVEL 100 MEQ/L (98-107); CREATININE FOR GFR 2.63 MG/DL (0.55-1.30); GLOMERULAR FILTRATION RATE 18.2 (>32); GLUCOSE, FASTING 87 MG/DL (70-100); PHOSPHORUS LEVEL 6.3 MG/DL (2.5-4.9); POTASSIUM SERUM 4.2 MEQ/L (3.5-5.1); SODIUM LEVEL 133 MEQ/L (136-145)
[2017-12-09] MEDS: FORMOTEROL FUMARATE 20 MCG/2 ML INHALATION SOLUTION (PERFOROMIST) INH ×2 (07:29→19:52)
[2017-12-09] MEDS: HEPARIN 1,000 UNITS/ML 10ML VIAL (FOR RADIOLOGY& DIALYSIS ONLY) XX (11:30)
[2017-12-09 11:50] LABS: HEPATITIS B SURFACE ANTIBODY NEGATIVE (POSITIVE)
[2017-12-09 12:03] LABS: HEPATITIS B SURFACE ANTIGEN NEGATIVE (NEGATIVE)
[2017-12-09 12:25] LABS: HEPATITIS C VIRUS ABY INDEX 0.3 INDEX (<0.8)
[2017-12-09 12:26] LABS: HEPATITIS B CORE ANTIBODY IGM NEGATIVE (NEGATIVE)
[2017-12-09] MEDS: HEPARIN 1,000 UNITS/ML 10ML VIAL (FOR RADIOLOGY& DIALYSIS ONLY) IV (12:40)
[2017-12-09] MEDS: NORTRIPTYLINE 25 MG CAP PO (20:27)
[2017-12-10] MEDS: **hydrALAZINE** 10 MG TAB PO ×3 (04:09→20:18)
[2017-12-10] MEDS: ISOSORBIDE DIN (ISORDIL) 10 MG TAB PO ×3 (04:09→20:18)
[2017-12-10] MEDS: LEVOTHYROXINE 88MCG TABLET (0.088 MG) PO (06:17)
[2017-12-10] MEDS: TAMSULOSIN 0.4 MG CAP PO (06:17)
[2017-12-10] MEDS: guaiFENesin ER 600 MG TAB PO ×3 (06:18→20:44)
[2017-12-10] MEDS: POTASSIUM CHLORIDE 10 MEQ SR TABLET PO ×2 (06:18→20:19)
[2017-12-10] MEDS: SLF 3 ML SYR IV ×3 (06:19→22:00)
[2017-12-10] MEDS: APIXABAN 2.5 MG TAB (ELIQUIS) PO ×2 (06:19→20:19)
[2017-12-10] MEDS: METOPROLOL TART 50 MG TAB PO ×2 (06:19→21:00)
[2017-12-10 06:47] LABS: HEMATOCRIT 33.5 % (36.0-47.0); HEMOGLOBIN 11.7 g/dl (12.0-16.0); MEAN CORPUSCULAR HEMOGLOBIN 32.4 pg (27.0-33.0); MEAN CORPUSCULAR HGB CONC 34.9 g/dl (32.0-36.5); MEAN CORPUSCULAR VOLUME 92.8 fl (80.0-96.0); PLATELET COUNT, AUTOMATED 159 10^3/uL (150-450); RED BLOOD COUNT 3.61 10^6/uL (4.00-5.40); RED CELL DISTRIBUTION WIDTH 14.2 % (11.5-14.5); WHITE BLOOD COUNT 10.5 10^3/uL (4.0-10.0)
[2017-12-10 06:56] LABS: ALBUMIN 2.2 GM/DL (3.2-5.2); ANION GAP 11 MEQ/L (8-16); BLOOD UREA NITROGEN 96 MG/DL (7-18); CALCIUM LEVEL 8.4 MG/DL (8.8-10.2); CARBON DIOXIDE LEVEL 24 MEQ/L (21-32); CHLORIDE LEVEL 101 MEQ/L (98-107); CREATININE FOR GFR 2.13 MG/DL (0.55-1.30); GLOMERULAR FILTRATION RATE 23.3 (>32); GLUCOSE, FASTING 72 MG/DL (70-100); PHOSPHORUS LEVEL 5.1 MG/DL (2.5-4.9); POTASSIUM SERUM 4.7 MEQ/L (3.5-5.1); SODIUM LEVEL 136 MEQ/L (136-145)
[2017-12-10] MEDS: FORMOTEROL FUMARATE 20 MCG/2 ML INHALATION SOLUTION (PERFOROMIST) INH ×2 (07:21→22:45)
[2017-12-10 08:07] LABS: HEPATITIS B CORE ANTIBODY IGG Negative (Negative)
[2017-12-10] MEDS: NYSTATIN 100,000 UNITS/GM TOPICAL PWD 15 GM TOP ×2 (08:17→20:20)
[2017-12-10] MEDS: HEPARIN 1,000 UNITS/ML 10ML VIAL (FOR RADIOLOGY& DIALYSIS ONLY) IV (14:15)
[2017-12-10] MEDS: NORTRIPTYLINE 25 MG CAP PO (20:19)
[2017-12-11] MEDS: ISOSORBIDE DIN (ISORDIL) 10 MG TAB PO ×3 (04:16→19:44)
[2017-12-11] MEDS: **hydrALAZINE** 10 MG TAB PO ×3 (04:16→19:44)
[2017-12-11] MEDS: SLF 3 ML SYR IV (06:00)
[2017-12-11] MEDS: LEVOTHYROXINE 88MCG TABLET (0.088 MG) PO (06:00)
[2017-12-11 06:42] LABS: HEMATOCRIT 31.8 % (36.0-47.0); HEMOGLOBIN 11.2 g/dl (12.0-16.0); MEAN CORPUSCULAR HEMOGLOBIN 32.9 pg (27.0-33.0); MEAN CORPUSCULAR HGB CONC 35.2 g/dl (32.0-36.5); MEAN CORPUSCULAR VOLUME 93.5 fl (80.0-96.0); PLATELET COUNT, AUTOMATED 142 10^3/uL (150-450); RED CELL DISTRIBUTION WIDTH 14.5 % (11.5-14.5); WHITE BLOOD COUNT 10.5 10^3/uL (4.0-10.0)
[2017-12-11 06:58] LABS: ALBUMIN 2.1 GM/DL (3.2-5.2); ANION GAP 10 MEQ/L (8-16); BLOOD UREA NITROGEN 65 MG/DL (7-18); CALCIUM LEVEL 8.1 MG/DL (8.8-10.2); CARBON DIOXIDE LEVEL 25 MEQ/L (21-32); CHLORIDE LEVEL 102 MEQ/L (98-107); CREATININE FOR GFR 1.89 MG/DL (0.55-1.30); GLOMERULAR FILTRATION RATE 26.7 (>32); GLUCOSE, FASTING 83 MG/DL (70-100); PHOSPHORUS LEVEL 3.6 MG/DL (2.5-4.9); POTASSIUM SERUM 4.4 MEQ/L (3.5-5.1); SODIUM LEVEL 137 MEQ/L (136-145)
[2017-12-11] MEDS: POTASSIUM CHLORIDE 10 MEQ SR TABLET PO ×2 (09:00→14:53)
[2017-12-11] MEDS: METOPROLOL TART 50 MG TAB PO ×3 (09:00→21:57)
[2017-12-11] MEDS: APIXABAN 2.5 MG TAB (ELIQUIS) PO ×3 (09:00→21:57)
[2017-12-11] MEDS: guaiFENesin ER 600 MG TAB PO ×3 (09:00→21:00)
[2017-12-11] MEDS: TAMSULOSIN 0.4 MG CAP PO ×2 (09:00→14:54)
[2017-12-11] MEDS: NYSTATIN 100,000 UNITS/GM TOPICAL PWD 15 GM TOP ×2 (09:49→21:57)
[2017-12-11] MEDS: FORMOTEROL FUMARATE 20 MCG/2 ML INHALATION SOLUTION (PERFOROMIST) INH ×2 (13:18→21:18)
[2017-12-11] MEDS: ACETAMINOPHEN TAB 650MG DOSE (2X325MG) PO (19:45)
[2017-12-11] MEDS: NORTRIPTYLINE 25 MG CAP PO (21:57)
[2017-12-12] MEDS: ISOSORBIDE DIN (ISORDIL) 10 MG TAB PO ×3 (04:00→20:55)
[2017-12-12] MEDS: **hydrALAZINE** 10 MG TAB PO ×3 (04:00→20:55)
[2017-12-12] MEDS: LEVOTHYROXINE 88MCG TABLET (0.088 MG) PO (06:17)
[2017-12-12] MEDS: APIXABAN 2.5 MG TAB (ELIQUIS) PO ×2 (06:17→20:54)
[2017-12-12] MEDS: METOPROLOL TART 50 MG TAB PO ×2 (06:17→20:55)
[2017-12-12 06:22] LABS: HEMATOCRIT 29.2 % (36.0-47.0); HEMOGLOBIN 10.3 g/dl (12.0-16.0); MEAN CORPUSCULAR HEMOGLOBIN 32.6 pg (27.0-33.0); MEAN CORPUSCULAR HGB CONC 35.3 g/dl (32.0-36.5); MEAN CORPUSCULAR VOLUME 92.4 fl (80.0-96.0); PLATELET COUNT, AUTOMATED 150 10^3/uL (150-450); RED BLOOD COUNT 3.16 10^6/uL (4.00-5.40); RED CELL DISTRIBUTION WIDTH 14.3 % (11.5-14.5); WHITE BLOOD COUNT 8.6 10^3/uL (4.0-10.0)
[2017-12-12 06:39] LABS: ALBUMIN 2.1 GM/DL (3.2-5.2); ANION GAP 9 MEQ/L (8-16); BLOOD UREA NITROGEN 73 MG/DL (7-18); CALCIUM LEVEL 7.8 MG/DL (8.8-10.2); CARBON DIOXIDE LEVEL 25 MEQ/L (21-32); CHLORIDE LEVEL 102 MEQ/L (98-107); CREATININE FOR GFR 1.68 MG/DL (0.55-1.30); GLOMERULAR FILTRATION RATE 30.6 (>32); GLUCOSE, FASTING 77 MG/DL (70-100); POTASSIUM SERUM 4.2 MEQ/L (3.5-5.1); SODIUM LEVEL 136 MEQ/L (136-145)
[2017-12-12] MEDS: FORMOTEROL FUMARATE 20 MCG/2 ML INHALATION SOLUTION (PERFOROMIST) INH ×2 (07:24→21:04)
[2017-12-12] MEDS: guaiFENesin ER 600 MG TAB PO ×2 (09:00→20:54)
[2017-12-12] MEDS: NYSTATIN 100,000 UNITS/GM TOPICAL PWD 15 GM TOP ×2 (10:39→20:55)
[2017-12-12] MEDS: HEPARIN 1,000 UNITS/ML 10ML VIAL (FOR RADIOLOGY& DIALYSIS ONLY) IV (12:00)
[2017-12-12] MEDS: NORTRIPTYLINE 25 MG CAP PO (20:54)
[2017-12-13] MEDS: ISOSORBIDE DIN (ISORDIL) 10 MG TAB PO ×3 (04:23→19:53)
[2017-12-13] MEDS: **hydrALAZINE** 10 MG TAB PO ×3 (04:24→19:54)
[2017-12-13] MEDS: LEVOTHYROXINE 88MCG TABLET (0.088 MG) PO (06:28)
[2017-12-13] MEDS: METOPROLOL TART 50 MG TAB PO ×2 (06:28→20:01)
[2017-12-13] MEDS: APIXABAN 2.5 MG TAB (ELIQUIS) PO ×2 (06:28→20:00)
[2017-12-13] MEDS: guaiFENesin ER 600 MG TAB PO ×2 (06:29→20:00)
[2017-12-13 06:56] LABS: HEMATOCRIT 32.3 % (36.0-47.0); HEMOGLOBIN 11.2 g/dl (12.0-16.0); MEAN CORPUSCULAR HEMOGLOBIN 32.6 pg (27.0-33.0); MEAN CORPUSCULAR HGB CONC 34.7 g/dl (32.0-36.5); MEAN CORPUSCULAR VOLUME 93.9 fl (80.0-96.0); PLATELET COUNT, AUTOMATED 142 10^3/uL (150-450); RED BLOOD COUNT 3.44 10^6/uL (4.00-5.40); RED CELL DISTRIBUTION WIDTH 14.6 % (11.5-14.5); WHITE BLOOD COUNT 8.8 10^3/uL (4.0-10.0)
[2017-12-13 07:08] LABS: ALBUMIN 2.1 GM/DL (3.2-5.2); ANION GAP 5 MEQ/L (8-16); BLOOD UREA NITROGEN 41 MG/DL (7-18); CALCIUM LEVEL 8.1 MG/DL (8.8-10.2); CARBON DIOXIDE LEVEL 29 MEQ/L (21-32); CHLORIDE LEVEL 104 MEQ/L (98-107); CREATININE FOR GFR 1.24 MG/DL (0.55-1.30); GLOMERULAR FILTRATION RATE 43.5 (>32); GLUCOSE, FASTING 74 MG/DL (70-100); PHOSPHORUS LEVEL 2.3 MG/DL (2.5-4.9); POTASSIUM SERUM 4.3 MEQ/L (3.5-5.1); SODIUM LEVEL 138 MEQ/L (136-145)
[2017-12-13] MEDS: FORMOTEROL FUMARATE 20 MCG/2 ML INHALATION SOLUTION (PERFOROMIST) INH ×2 (07:21→20:11)
[2017-12-13] MEDS: NYSTATIN 100,000 UNITS/GM TOPICAL PWD 15 GM TOP ×2 (10:14→20:01)
[2017-12-13] MEDS: NORTRIPTYLINE 25 MG CAP PO (20:00)
[2017-12-14] MEDS: **hydrALAZINE** 10 MG TAB PO ×3 (04:19→20:11)
[2017-12-14] MEDS: ISOSORBIDE DIN (ISORDIL) 10 MG TAB PO ×3 (04:19→20:12)
[2017-12-14] MEDS: APIXABAN 2.5 MG TAB (ELIQUIS) PO ×2 (06:07→20:11)
[2017-12-14] MEDS: LEVOTHYROXINE 88MCG TABLET (0.088 MG) PO (06:07)
[2017-12-14] MEDS: METOPROLOL TART 50 MG TAB PO ×2 (06:08→20:12)
[2017-12-14] MEDS: guaiFENesin ER 600 MG TAB PO ×2 (06:08→20:11)
[2017-12-14 06:33] LABS: ANION GAP 6 MEQ/L (8-16); BLOOD UREA NITROGEN 42 MG/DL (7-18); CALCIUM LEVEL 7.7 MG/DL (8.8-10.2); CARBON DIOXIDE LEVEL 28 MEQ/L (21-32); CHLORIDE LEVEL 100 MEQ/L (98-107); CREATININE FOR GFR 1.15 MG/DL (0.55-1.30); GLOMERULAR FILTRATION RATE 47.4 (>32); GLUCOSE, FASTING 87 MG/DL (70-100); PHOSPHORUS LEVEL 1.8 MG/DL (2.5-4.9); POTASSIUM SERUM 4.1 MEQ/L (3.5-5.1); SODIUM LEVEL 134 MEQ/L (136-145)
[2017-12-14] MEDS: NYSTATIN 100,000 UNITS/GM TOPICAL PWD 15 GM TOP ×2 (06:39→20:13)
[2017-12-14] MEDS: FORMOTEROL FUMARATE 20 MCG/2 ML INHALATION SOLUTION (PERFOROMIST) INH ×2 (07:23→21:08)
[2017-12-14] MEDS: HEPARIN 1,000 UNITS/ML 10ML VIAL (FOR RADIOLOGY& DIALYSIS ONLY) IV (13:00)
[2017-12-14] MEDS: NORTRIPTYLINE 25 MG CAP PO (20:11)
[2017-12-15] MEDS: ISOSORBIDE DIN (ISORDIL) 10 MG TAB PO ×3 (04:28→20:08)
[2017-12-15] MEDS: **hydrALAZINE** 10 MG TAB PO ×3 (04:29→20:09)
[2017-12-15] MEDS: LEVOTHYROXINE 88MCG TABLET (0.088 MG) PO (05:44)
[2017-12-15] MEDS: FORMOTEROL FUMARATE 20 MCG/2 ML INHALATION SOLUTION (PERFOROMIST) INH ×2 (07:53→20:09)
[2017-12-15] MEDS: APIXABAN 2.5 MG TAB (ELIQUIS) PO (09:00)
[2017-12-15] MEDS: guaiFENesin ER 600 MG TAB PO ×2 (09:00→20:09)
[2017-12-15] MEDS: METOPROLOL TART 50 MG TAB PO ×2 (09:00→21:44)
[2017-12-15] MEDS: NYSTATIN 100,000 UNITS/GM TOPICAL PWD 15 GM TOP ×2 (09:00→20:10)
[2017-12-15 12:33] LABS: ALBUMIN 2.1 GM/DL (3.2-5.2); ALBUMIN/GLOBULIN RATIO 0.68 (1.00-1.93); ALKALINE PHOSPHATASE 169 U/L (45-117); ALT/SGPT 28 U/L (12-78); ANION GAP 6 MEQ/L (8-16); AST/SGOT 31 U/L (7-37); BILIRUBIN,TOTAL 0.7 MG/DL (0.2-1.0); BLOOD UREA NITROGEN 29 MG/DL (7-18); CALCIUM LEVEL 7.8 MG/DL (8.8-10.2); CARBON DIOXIDE LEVEL 29 MEQ/L (21-32); CHLORIDE LEVEL 102 MEQ/L (98-107); CREATININE FOR GFR 1.01 MG/DL (0.55-1.30); GLOMERULAR FILTRATION RATE 55.1 (>32); GLUCOSE, FASTING 84 MG/DL (70-100); POTASSIUM SERUM 4.3 MEQ/L (3.5-5.1); SODIUM LEVEL 137 MEQ/L (136-145); TOTAL PROTEIN 5.2 GM/DL (6.4-8.2)
[2017-12-15] MEDS: NORTRIPTYLINE 25 MG CAP PO (20:09)
[2017-12-16] MEDS: ISOSORBIDE DIN (ISORDIL) 10 MG TAB PO ×3 (03:49→21:13)
[2017-12-16] MEDS: **hydrALAZINE** 10 MG TAB PO ×3 (03:49→21:13)
[2017-12-16] MEDS: LEVOTHYROXINE 88MCG TABLET (0.088 MG) PO (05:31)
[2017-12-16 06:19] LABS: HEMATOCRIT 29.8 % (36.0-47.0); HEMOGLOBIN 10.3 g/dl (12.0-16.0); MEAN CORPUSCULAR HEMOGLOBIN 32.8 pg (27.0-33.0); MEAN CORPUSCULAR HGB CONC 34.6 g/dl (32.0-36.5); MEAN CORPUSCULAR VOLUME 94.9 fl (80.0-96.0); PLATELET COUNT, AUTOMATED 168 10^3/uL (150-450); RED BLOOD COUNT 3.14 10^6/uL (4.00-5.40); RED CELL DISTRIBUTION WIDTH 14.8 % (11.5-14.5); WHITE BLOOD COUNT 11.9 10^3/uL (4.0-10.0)
[2017-12-16 06:40] LABS: ANION GAP 7 MEQ/L (8-16); BLOOD UREA NITROGEN 32 MG/DL (7-18); CALCIUM LEVEL 7.9 MG/DL (8.8-10.2); CARBON DIOXIDE LEVEL 27 MEQ/L (21-32); CHLORIDE LEVEL 100 MEQ/L (98-107); CREATININE FOR GFR 1.07 MG/DL (0.55-1.30); GLOMERULAR FILTRATION RATE 51.5 (>32); GLUCOSE, FASTING 72 MG/DL (70-100); POTASSIUM SERUM 4.2 MEQ/L (3.5-5.1); SODIUM LEVEL 134 MEQ/L (136-145)
[2017-12-16] MEDS: guaiFENesin ER 600 MG TAB PO ×2 (08:59→21:13)
[2017-12-16] MEDS: METOPROLOL TART 50 MG TAB PO ×2 (08:59→22:26)
[2017-12-16] MEDS: NYSTATIN 100,000 UNITS/GM TOPICAL PWD 15 GM TOP ×2 (09:01→21:14)
[2017-12-16] MEDS: FORMOTEROL FUMARATE 20 MCG/2 ML INHALATION SOLUTION (PERFOROMIST) INH ×2 (09:12→20:58)
[2017-12-16] MEDS: APIXABAN 2.5 MG TAB (ELIQUIS) PO ×2 (12:34→21:12)
[2017-12-16] MEDS: ACETAMINOPHEN TAB 650MG DOSE (2X325MG) PO (12:36)
[2017-12-16] MEDS: NORTRIPTYLINE 25 MG CAP PO (21:13)
[2017-12-17] MEDS: ISOSORBIDE DIN (ISORDIL) 10 MG TAB PO ×3 (05:01→20:34)
[2017-12-17] MEDS: **hydrALAZINE** 10 MG TAB PO ×3 (05:01→20:34)
[2017-12-17] MEDS: NYSTATIN 100,000 UNITS/GM TOPICAL PWD 15 GM TOP ×2 (06:48→20:35)
[2017-12-17] MEDS: LEVOTHYROXINE 88MCG TABLET (0.088 MG) PO (06:48)
[2017-12-17] MEDS: SENOKOT S TAB PO (06:48)
[2017-12-17] MEDS: APIXABAN 2.5 MG TAB (ELIQUIS) PO ×2 (06:48→20:34)
[2017-12-17] MEDS: guaiFENesin ER 600 MG TAB PO ×2 (06:48→20:33)
[2017-12-17] MEDS: FORMOTEROL FUMARATE 20 MCG/2 ML INHALATION SOLUTION (PERFOROMIST) INH ×2 (09:01→21:06)
[2017-12-17] MEDS: METOPROLOL TART 50 MG TAB PO ×2 (09:17→20:33)
[2017-12-17 10:16] LABS: ANION GAP 7 MEQ/L (8-16); BLOOD UREA NITROGEN 31 MG/DL (7-18); CALCIUM LEVEL 7.5 MG/DL (8.8-10.2); CARBON DIOXIDE LEVEL 28 MEQ/L (21-32); CHLORIDE LEVEL 100 MEQ/L (98-107); CREATININE FOR GFR 0.98 MG/DL (0.55-1.30); GLUCOSE, FASTING 67 MG/DL (70-100); SODIUM LEVEL 135 MEQ/L (136-145)
[2017-12-17] MEDS: HEPARIN 1,000 UNITS/ML 10ML VIAL (FOR RADIOLOGY& DIALYSIS ONLY) XX (11:39)
[2017-12-17] MEDS: NORTRIPTYLINE 25 MG CAP PO (20:33)
[2017-12-18] MEDS: **hydrALAZINE** 10 MG TAB PO ×3 (04:20→20:08)
[2017-12-18] MEDS: ISOSORBIDE DIN (ISORDIL) 10 MG TAB PO ×3 (04:21→20:07)
[2017-12-18] MEDS: LEVOTHYROXINE 88MCG TABLET (0.088 MG) PO (06:10)
[2017-12-18 06:44] LABS: ANION GAP 10 MEQ/L (8-16); BLOOD UREA NITROGEN 28 MG/DL (7-18); CALCIUM LEVEL 7.7 MG/DL (8.8-10.2); CARBON DIOXIDE LEVEL 25 MEQ/L (21-32); CHLORIDE LEVEL 100 MEQ/L (98-107); CREATININE FOR GFR 0.83 MG/DL (0.55-1.30); GLOMERULAR FILTRATION RATE > 60.0 (>32); GLUCOSE, FASTING 81 MG/DL (70-100); POTASSIUM SERUM 3.9 MEQ/L (3.5-5.1); SODIUM LEVEL 135 MEQ/L (136-145)
[2017-12-18] MEDS: FORMOTEROL FUMARATE 20 MCG/2 ML INHALATION SOLUTION (PERFOROMIST) INH ×2 (09:14→20:57)
[2017-12-18] MEDS: NYSTATIN 100,000 UNITS/GM TOPICAL PWD 15 GM TOP ×2 (09:45→20:08)
[2017-12-18] MEDS: APIXABAN 2.5 MG TAB (ELIQUIS) PO ×2 (09:45→20:08)
[2017-12-18] MEDS: guaiFENesin ER 600 MG TAB PO ×2 (09:45→20:07)
[2017-12-18] MEDS: METOPROLOL TART 50 MG TAB PO ×2 (09:46→20:07)
[2017-12-18] MEDS: NORTRIPTYLINE 25 MG CAP PO (20:07)
[2017-12-19] MEDS: **hydrALAZINE** 10 MG TAB PO ×3 (04:00→20:31)
[2017-12-19] MEDS: ISOSORBIDE DIN (ISORDIL) 10 MG TAB PO ×3 (04:00→20:31)
[2017-12-19] MEDS: LEVOTHYROXINE 88MCG TABLET (0.088 MG) PO (06:09)
[2017-12-19] MEDS: FORMOTEROL FUMARATE 20 MCG/2 ML INHALATION SOLUTION (PERFOROMIST) INH ×2 (07:37→19:14)
[2017-12-19] MEDS: METOPROLOL TART 50 MG TAB PO ×2 (10:07→20:32)
[2017-12-19] MEDS: NYSTATIN 100,000 UNITS/GM TOPICAL PWD 15 GM TOP ×2 (10:07→20:32)
[2017-12-19] MEDS: APIXABAN 2.5 MG TAB (ELIQUIS) PO ×2 (10:07→20:31)
[2017-12-19] MEDS: guaiFENesin ER 600 MG TAB PO ×2 (10:07→20:31)
[2017-12-19] MEDS: NORTRIPTYLINE 25 MG CAP PO (20:31)
[2017-12-20] MEDS: **hydrALAZINE** 10 MG TAB PO (04:32)
[2017-12-20] MEDS: ISOSORBIDE DIN (ISORDIL) 10 MG TAB PO (04:32)
[2017-12-20] MEDS: LEVOTHYROXINE 88MCG TABLET (0.088 MG) PO (06:09)
[2017-12-20 06:31] LABS: HEMATOCRIT 29.6 % (36.0-47.0); HEMOGLOBIN 9.9 g/dl (12.0-16.0); MEAN CORPUSCULAR HEMOGLOBIN 32.7 pg (27.0-33.0); MEAN CORPUSCULAR HGB CONC 33.4 g/dl (32.0-36.5); MEAN CORPUSCULAR VOLUME 97.7 fl (80.0-96.0); PLATELET COUNT, AUTOMATED 229 10^3/uL (150-450); RED BLOOD COUNT 3.03 10^6/uL (4.00-5.40); RED CELL DISTRIBUTION WIDTH 15.2 % (11.5-14.5)
[2017-12-20 06:47] LABS: ANION GAP 5 MEQ/L (8-16); BLOOD UREA NITROGEN 21 MG/DL (7-18); CALCIUM LEVEL 8.1 MG/DL (8.8-10.2); CARBON DIOXIDE LEVEL 30 MEQ/L (21-32); CHLORIDE LEVEL 100 MEQ/L (98-107); GLOMERULAR FILTRATION RATE > 60.0 (>32); GLUCOSE, FASTING 77 MG/DL (70-100); POTASSIUM SERUM 4.3 MEQ/L (3.5-5.1); SODIUM LEVEL 135 MEQ/L (136-145)
[2017-12-20] MEDS: FORMOTEROL FUMARATE 20 MCG/2 ML INHALATION SOLUTION (PERFOROMIST) INH (07:28)
[2017-12-20] MEDS: guaiFENesin ER 600 MG TAB PO (09:35)
[2017-12-20] MEDS: APIXABAN 2.5 MG TAB (ELIQUIS) PO (09:36)
[2017-12-20] MEDS: METOPROLOL TART 50 MG TAB PO (09:36)
[2017-12-20] MEDS: NYSTATIN 100,000 UNITS/GM TOPICAL PWD 15 GM TOP (09:38)
== END 2017-12-20 11:23 | DRG 291 ==
LOC: M OR 12-06 14:39 → M MSPAV 12-07 12:15 → M PCU 17:19
PROVIDERS: Family Medicine
PROC: 02HV33Z Insertion of Infusion Device into Superior Vena Cava, Percutaneous Approach (ICD-10-PCS; 2017-12-07 17:00)
PROC: B300YZZ Plain Radiography of Thoracic Aorta using Other Contrast (ICD-10-PCS; principal; 2017-12-07 18:26)
PROC: 5A1D70Z Performance of Urinary Filtration, Intermittent, Less than 6 Hours Per Day (ICD-10-PCS; 2017-12-07 18:26)
DX: I13.0 Hypertensive heart and chronic kidney disease with heart failure and stage 1 through stage 4 chronic kidney disease, or unspecified chronic kidney disease (principal); I50.23 Acute on chronic systolic (congestive) heart failure; N18.4 Chronic kidney disease, stage 4 (severe); N39.0 Urinary tract infection, site not specified; I48.1 Persistent atrial fibrillation; N17.9 Acute kidney failure, unspecified; E03.9 Hypothyroidism, unspecified; G62.9 Polyneuropathy, unspecified; I73.00 Raynaud's syndrome without gangrene; M21.379 Foot drop, unspecified foot; Z66 Do not resuscitate; J84.10 Pulmonary fibrosis, unspecified; I48.2 Chronic atrial fibrillation; I25.10 Atherosclerotic heart disease of native coronary artery without angina pectoris; M81.0 Age-related osteoporosis without current pathological fracture; R33.9 Retention of urine, unspecified; I34.0 Nonrheumatic mitral (valve) insufficiency; I71.4 Abdominal aortic aneurysm, without rupture; I73.9 Peripheral vascular disease, unspecified; E78.5 Hyperlipidemia, unspecified; I42.0 Dilated cardiomyopathy; I70.1 Atherosclerosis of renal artery; Z96.652 Presence of left artificial knee joint; Z79.899 Other long term (current) drug therapy; Z88.0 Allergy status to penicillin; Z88.6 Allergy status to analgesic agent; Z79.01 Long term (current) use of anticoagulants

== ENCOUNTER → 2017-11-20 | Outpatient (REF) | payer MEDICARE, OTHER ==
[2017-11-20 18:47] LABS: ANION GAP 8 MEQ/L (8-16); BLOOD UREA NITROGEN 48 MG/DL (7-18); CALCIUM LEVEL 9.1 MG/DL (8.8-10.2); CARBON DIOXIDE LEVEL 31 MEQ/L (21-32); CHLORIDE LEVEL 99 MEQ/L (98-107); CREATININE FOR GFR 1.47 MG/DL (0.55-1.30); GLOMERULAR FILTRATION RATE 35.7 (>32); GLUCOSE, FASTING 107 MG/DL (70-100); POTASSIUM SERUM 4.3 MEQ/L (3.5-5.1); SODIUM LEVEL 138 MEQ/L (136-145)
== END ==
LOC: M SFHCPLAZ 15:50
DX: I50.21 Acute systolic (congestive) heart failure (principal)
CPT/HCPCS: 80048

== ENCOUNTER → 2017-12-26 | Outpatient (REF) | payer MEDICARE, OTHER ==
[2017-12-26 19:53] LABS: BASO % 0.4 % (0.0-1.0); EOS % 0.3 % (0.0-3.0); HEMATOCRIT 32.8 % (36.0-47.0); HEMOGLOBIN 10.8 g/dl (12.0-16.0); IMMATURE GRANULOCYTE % 0.5 % (0-3.0); LYMPH # 0.5 10^3/uL (1.5-4.5); MEAN CORPUSCULAR HEMOGLOBIN 32.9 pg (27.0-33.0); MEAN CORPUSCULAR HGB CONC 32.9 g/dl (32.0-36.5); MONO # 0.5 10^3/uL (0.0-0.8); MONO % 6.3 % (0.0-5.0); NEUTROPHILS # 6.6 10^3/uL (1.8-7.7); NEUTROPHILS % 86.5 % (36.0-66.0); PLATELET COUNT, AUTOMATED 213 10^3/uL (150-450); RED BLOOD COUNT 3.28 10^6/uL (4.00-5.40); RED CELL DISTRIBUTION WIDTH 15.8 % (11.5-14.5); WHITE BLOOD COUNT 7.7 10^3/uL (4.0-10.0)
[2017-12-26 20:26] LABS: ANION GAP 6 MEQ/L (8-16); BLOOD UREA NITROGEN 18 MG/DL (7-18); CALCIUM LEVEL 8.9 MG/DL (8.8-10.2); CARBON DIOXIDE LEVEL 29 MEQ/L (21-32); CHLORIDE LEVEL 105 MEQ/L (98-107); CREATININE FOR GFR 0.88 MG/DL (0.55-1.30); GLOMERULAR FILTRATION RATE > 60.0 (>32); GLUCOSE, FASTING 100 MG/DL (70-100); POTASSIUM SERUM 4.4 MEQ/L (3.5-5.1); SODIUM LEVEL 140 MEQ/L (136-145)
== END ==
LOC: SKLAB7 18:42
DX: R06.02 Shortness of breath (principal); R09.89 Other specified symptoms and signs involving the circulatory and respiratory systems; I51.7 Cardiomegaly; J91.8 Pleural effusion in other conditions classified elsewhere; R91.8 Other nonspecific abnormal finding of lung field
CPT/HCPCS: 71045

== ENCOUNTER → 2017-12-26 | Outpatient (CLI) | payer MEDICARE, OTHER | LOC: SKLAB7 20:45 | DX: R09.89 Other specified symptoms and signs involving the circulatory and respiratory systems (principal); R06.02 Shortness of breath; I51.7 Cardiomegaly; J91.8 Pleural effusion in other conditions classified elsewhere; R91.8 Other nonspecific abnormal finding of lung field ==